=== PATIENT | female | born 1935 | race American Indian/Alaskan Native ===

== ENCOUNTER 2017-03-12 13:23 | Emergency (ER) | payer MEDICARE, MEDICAID ==
[2017-03-12] MEDS ORDERED: ATIVAN ONE (13:24)
[2017-03-12] MEDS ORDERED: ATIVAN IV ONE (13:30)
[2017-03-12] MEDS ORDERED: KEPPRA 1,000 MG/NS 0.75% 100ML 1,000 MG/100 ML BAG IV ONE ×2 (13:47→13:59)
[2017-03-12 13:50] LABS: Mean Corpuscular HGB Conc 30 % (30-34); Mean Corpuscular Hemoglobin 29 pg (28-32); Mean Corpuscular Volume 96 fl (79-97); Platelet Count 280 K/mm3 (140-440); Red Blood Count 4.26 M/mm3 (3.65-5.03); Red Cell Distribution Width 13.4 % (13.2-15.2); White Blood Count 13.5 K/mm3 (4.5-11.0)
[2017-03-12 13:55] LABS: Hematocrit 41.1 % (30.3-42.9); Hemoglobin 12.3 gm/dl (10.1-14.3)
[2017-03-12 13:58] LABS: Eosinophils % (Auto) 1.3 % (0.0-4.3)
--- NOTE | 2017-03-12 13:59 | Cat Scan Report ---
CT HEAD WITHOUT CONTRAST INDICATION: Seizure. COMPARISON: 04/04/2016 MRI. FINDINGS: Noncontrast head CT demonstrates age-appropriate, mildly enlarged ventricles and sulci. Moderate periventricular and few white matter hypodensities. Small bilateral basal ganglia lacunar infarcts measuring up to 3 mm on the left, axial image 19, series 2. No definite acute infarct, hemorrhage, mass effect or midline shift. No abnormal extra axial fluid collections. Normal posterior fossa with preserved basilar cisterns. Bilateral cataract surgery. Slight rightward nasal septal deviation. Aplastic/hypoplastic bilateral frontal sinuses. Clear remainder aerated paranasal sinuses and mastoid air cells. Slight bilateral external auditory canal debris may be directly visualized. Extensive atherosclerotic internal carotid and mild bilateral vertebral artery calcifications. Intact calvarium. Normal scalp. Edentulous jaw. Extensive posterior cervical fusion hardware noted. CONCLUSION: No acute intracranial CT abnormality with age-appropriate atrophy and few other incidental findings, as above. Thank you for the opportunity to participate in this patient's care.
[2017-03-12 14:06] LABS: Albumin 4.3 g/dL (3.9-5); Albumin/Globulin Ratio 1.2 %; BUN/Creatinine Ratio 17.5; Bilirubin,Total 0.3 mg/dL (0.1-1.2); Calcium 9.5 mg/dL (8.4-10.2); Chloride 101.7 mmol/L (98-107); Total Protein 7.9 g/dL (6.3-8.2)
[2017-03-12 14:53] LABS: Basophils % (Manual) 0 % (0.0-1.8); Blastocytes % (Manual) 0 %; Eosinophils % (Manual) 0 % (0.0-4.3)
[2017-03-12 14:54] LABS: Anisocytosis Few
[2017-03-12 14:55] LABS: Diff Status Complete
[2017-03-12 15:07] LABS: Bacteria,Urine 4+ /HPF (Negative); Bilirubin,Urine NEG (Negative); Blood,Urine MOD (Negative); Granular Casts,Urine 5 /LPF; Ketones,Urine NEG (Negative); Leukocyte Esterase,Urine TR (Negative); Mucus,Urine 1+ /HPF; Nitrite,Urine NEG (Negative); Urobilinogen,Urine < 2.0 mg/dL (<2.0)
--- NOTE | 2017-03-12 15:12 | Emergency Department Report ---
ED Seizure HPI - General Chief Complaint: Seizure Stated Complaint: SIEZURE Time Seen by Provider: 03/12/17 13:30 Source: family, EMS Mode of arrival: Stretcher Limitations: Physical Limitation - History of Present Illness Initial Comments: 81-year-old female presents to the emergency department via EMS from a local fdc for evaluation of seizure. EMS reports that the patient had 3 seizures prior to them being called. Reportedly, the patient was continuing to seize en route to the emergency department. 2 mg of intramuscular Ativan were administered. Patient was continuing to have some seizure activity upon arrival in the emergency department. Further history is unable to be obtained from the patient due to her clinical condition. Complaint: seizure -: Gradual, This afternoon Description of Episode: tonic-clonic movement Witnessed:: Yes Trauma: No Seizure History: other (reported history by family) Place: other (fdc) Possible Precipitating Event: none Treatments Prior to Arrival: benzodiazepines - Related Data Previous Rx's Medication Instructions Recorded Last Taken Type Nitrofurantoin [place]/M-Cryst 100 mg PO Q12HR #14 capsule 03/12/17 Unknown Rx [Macrobid CAP] levETIRAcetam [Keppra TAB] 500 mg PO BID #60 tablet 03/12/17 Unknown Rx Allergies Allergy/AdvReac Type Severity Reaction Status Date / Time seafood Allergy Anaphylaxis Uncoded 03/12/17 14:09 ED Review of Systems ROS: Stated complaint: SIEZURE Other details as noted in HPI Comment: Unobtainable due to pts medical conditions ED Past Medical Hx - Past Medical History Previous Medical History?: Yes Hx Hypertension: Yes Hx Congestive Heart Failure: Yes Hx Diabetes: Yes Additional medical history: DVTs; emphysema - Surgical History Past Surgical History?: No - Family History Family history: no significant - Social History Smoking Status: Unknown if ever smoked Substance Use Type: None - Medications Home Medications: Home Medications Medication Instructions Recorded Confirmed Last Taken Type Nitrofurantoin [place]/M-Cryst 100 mg PO Q12HR #14 capsule 03/12/17 Unknown Rx [Macrobid CAP] levETIRAcetam [Keppra TAB] 500 mg PO BID #60 tablet 03/12/17 Unknown Rx ED Physical Exam - General Limitations: Physical Limitation General appearance: postictal - Head Head exam: Present: atraumatic, normocephalic - Eye Eye exam: Present: normal appearance, PERRL (3 mm), EOMI - ENT ENT exam: Present: normal exam, normal orophraynx, mucous membranes moist - Neck Neck exam: Present: normal inspection, full ROM. Absent: tenderness - Respiratory Respiratory exam: Present: normal lung sounds bilaterally. Absent: respiratory distress - Cardiovascular Cardiovascular Exam: Present: normal rhythm, tachycardia, normal heart sounds - GI/Abdominal GI/Abdominal exam: Present: soft, normal bowel sounds. Absent: distended, tenderness - Extremities Exam Extremities exam: Present: normal inspection, full ROM. Absent: tenderness - Back Exam Back exam: Present: normal inspection, full ROM. Absent: tenderness - Neurological Exam Neurological exam: Present: other (patient post-ictal on exam). Absent: motor sensory deficit - Skin Skin exam: Present: warm, dry, intact ED Course Vital Signs 03/12/17 03/12/17 03/12/17 13:29 13:47 14:37 Temperature 98.5 F 99.1 F Pulse Rate 107 H 97 H Respiratory 6 L 18 18 Rate Blood Pressure 201/98 Blood Pressure 103/64 [Left] O2 Sat by Pulse 100 100 100 Oximetry ED Medical Decision Making - Lab Data Result diagrams: 03/12/17 13:34 03/12/17 13:34 - EKG Data -: EKG Interpreted by Pa EKG shows normal: sinus rhythm, axis, intervals, QRS complexes Rate: normal - EKG Data When compared to previous EKG there are: previous EKG unavailable Interpretation: nonspecific ST-T wave ozzie - Radiology Data Radiology results: report reviewed, image reviewed Head CT shows chronic white matter changes and old lacunar infarcts. There is no acute intracranial abnormality. - Medical Decision Making On arrival to the emergency department, the patient continued to have seizure activity. She was administered an additional 2 mg of IV Ativan. Following this , her seizure activity ceased. Obtaining labs and head CT. Will reassess. 1525--lab results reviewed and discussed with the family at bedside. Patient's vital signs have returned to normal. No further seizure activity has been observed in the emergency department. Patient has received 1 g of IV Keppra. She will be placed on oral anti-biotics and oral Keppra. Patient will be discharged back to the fdc at this time. - Differential Diagnosis seizure, ICH, infection Critical care attestation.: If time is entered above; I have spent that time in minutes in the direct care of this critically ill patient, excluding procedure time. ED Disposition Clinical Impression: Seizure UTI (urinary tract infection) Qualifiers: Urinary tract infection type: acute cystitis Hematuria presence: without hematuria Qualified Code(s): N30.00 - Acute cystitis without hematuria Disposition: DC/TX ANOTHER TYPE HEALTHCARE Is pt being admited?: No Condition: Stable Instructions: Recurrent Seizures Adult (ED), Urinary Tract Infection in Women ( ED) Prescriptions: levETIRAcetam [Keppra TAB] 500 mg PO BID #60 tablet Nitrofurantoin [place]/M-Cryst [Macrobid CAP] 100 mg PO Q12HR #14 capsule Referrals: PRIMARY CARE, [Primary Care Provider] - 3-5 Days Time of Disposition: 15:29
[2017-03-12 16:15] VITALS: BP 137/80
== END 2017-03-12 17:12 | disposition other institution (70) ==
LOC: ED 13:23
DX: R56.9 Unspecified convulsions (principal); N30.00 Acute cystitis without hematuria; I10 Essential (primary) hypertension; I50.9 Heart failure, unspecified; E11.9 Type 2 diabetes mellitus without complications
CPT/HCPCS: 36415; 70450; 80053; 81001; 85007; 85025; 93005; 93010; 96374; 96375; 99285; J1953; J2060

== ENCOUNTER 2022-06-30 09:03 | Inpatient (IN) | payer MEDICARE ==
[2022-06-30] MEDS ORDERED: ROCURONIUM 50 MG/5 ML INJ IV ONE ×2 (09:33→09:59)
[2022-06-30] MEDS ORDERED: ETOMIDATE 20 MG/10 ML INJ IV ONE ×2 (09:33→09:46)
--- NOTE | 2022-06-30 09:37 | Emergency Department Report ---
ED Altered Mental Status HPI - General Stated Complaint: AMS Time Seen by Provider: 06/30/22 09:15 Source: EMS Mode of arrival: Stretcher Limitations: Altered Mental Status - History of Present Illness Initial Comments: 87-year-old -[place] with multiple medical problems sent from custodial because she was altered. By EMS her baseline she is usually communicative and making sense this a.m. approximately 70 o'clock, she became altered. MD Complaint: altered mental status, decreased responsiveness -: Sudden Severity: severe Consistency of Symptoms: constant Associated Symptoms: denies other symptoms - Related Data Home Medications Medication Instructions Recorded Confirmed Last Taken Acetaminophen [Acetaminophen TAB] 650 mg PO Q6HR PRN 05/04/17 05/04/17 Unknown Acetaminophen [Tylenol Arthritis] 650 mg PO Q12H PRN 05/04/17 05/04/17 Unknown Benazepril HCl 25 mg PO BID 05/04/17 05/04/17 Unknown Docusate Sodium [Colace CAP] 100 mg PO BID 05/04/17 05/04/17 Unknown Ferrous Sulfate [Feosol 325 MG tab] 325 mg PO QDAY 05/04/17 05/04/17 Unknown Mag Hydrox/Aluminum Hyd/Simeth 30 ml PO Q6H PRN 05/04/17 05/04/17 Unknown [Maalox Advanced Suspension] Mirtazapine [Remeron 15mg TAB] 15 mg PO QHS 05/04/17 05/04/17 Unknown Montelukast [Singulair] 10 mg PO QPM 05/04/17 05/04/17 Unknown Sennosides Tab [Senokot] 2 tab PO QDAY 05/04/17 05/04/17 Unknown glucagon HCL [Glucagon HCl] 1 mg IM Q15MIN PRN 05/04/17 05/04/17 Unknown Previous Rx's Medication Instructions Recorded Last Taken Type levETIRAcetam [Keppra TAB] 500 mg PO BID #60 tablet 03/12/17 Unknown Rx amLODIPine 10 mg PO QDAY #30 tablet 05/07/17 Unknown Rx Allergies Allergy/AdvReac Type Severity Reaction Status Date / Time seafood Allergy Anaphylaxis Uncoded 06/30/22 10:05 ED Review of Systems ROS: Stated complaint: AMS Other details as noted in HPI Constitutional: see HPI, malaise Eyes: as per HPI ENT: as per HPI Respiratory: no symptoms reported Cardiovascular: as per HPI Endocrine: no symptoms reported, intolerance to heat Musculoskeletal: back pain Skin: as per HPI Neurological: weakness, confusion ED Past Medical Hx - Past Medical History Hx Hypertension: Yes Hx CVA: Yes Hx Congestive Heart Failure: Yes Hx Diabetes: Yes Hx Seizures: Yes Hx Dementia: Yes Additional medical history: DVTs; emphysema. dementia - Surgical History Additional Surgical History: torn esophagus - Social History Smoking Status: Never Smoker - Medications Home Medications: Home Medications Medication Instructions Recorded Confirmed Last Taken Type levETIRAcetam [Keppra TAB] 500 mg PO BID #60 tablet 03/12/17 05/04/17 Unknown Rx Acetaminophen [Acetaminophen TAB] 650 mg PO Q6HR PRN 05/04/17 05/04/17 Unknown History Acetaminophen [Tylenol Arthritis] 650 mg PO Q12H PRN 05/04/17 05/04/17 Unknown History Benazepril HCl 25 mg PO BID 05/04/17 05/04/17 Unknown History Docusate Sodium [Colace CAP] 100 mg PO BID 05/04/17 05/04/17 Unknown History Ferrous Sulfate [Feosol 325 MG tab] 325 mg PO QDAY 05/04/17 05/04/17 Unknown History Mag Hydrox/Aluminum Hyd/Simeth 30 ml PO Q6H PRN 05/04/17 05/04/17 Unknown History [Maalox Advanced Suspension] Mirtazapine [Remeron 15mg TAB] 15 mg PO QHS 05/04/17 05/04/17 Unknown History Montelukast [Singulair] 10 mg PO QPM 05/04/17 05/04/17 Unknown History Sennosides Tab [Senokot] 2 tab PO QDAY 05/04/17 05/04/17 Unknown History glucagon HCL [Glucagon HCl] 1 mg IM Q15MIN PRN 05/04/17 05/04/17 Unknown History amLODIPine 10 mg PO QDAY #30 tablet 05/07/17 Unknown Rx ED Physical Exam - General Limitations: Altered Mental Status, Physical Limitation General appearance: lethargic, in distress - Head Head exam: Present: atraumatic, normocephalic - Eye Eye exam: Present: normal appearance, PERRL - ENT ENT exam: Present: normal exam, normal orophraynx - Neck Neck exam: Present: normal inspection - Respiratory Respiratory exam: Present: respiratory distress, accessory muscle use - Cardiovascular Cardiovascular Exam: Present: regular rate, normal rhythm, normal heart sounds - Extremities Exam Extremities exam: Present: normal inspection - Back Exam Back exam: Present: normal inspection - Neurological Exam Neurological exam: Present: alert - Expanded Neurological Exam Expanded Neurological exam: Present: total aphasia. Absent: protecting the airway Patient oriented to: Absent: person, place, time Cranial nerves: EOM's Intact: Normal, Gag Reflex: Abnormal Right, Abnormal Left, Facial Palsy with Forehead Movement: Abnormal Right, Abnormal Left Upper motor neuron: [place] Neglect: Abnormal Right, Abnormal Left Best Eye Response ([place]): (2) open to pain Best Motor Response ([place]): (5) localizes to pain Best Verbal Response ([place]): (2) incomprehsible sounds [place] Total: 9 - Skin Skin exam: Present: warm ED Course Vital Signs 06/30/22 06/30/22 06/30/22 09:03 09:33 09:43 Temperature 98.0 F Pulse Rate 144 H 143 H Respiratory 22 Rate Blood Pressure 203/103 Blood Pressure 160/120 [Left] O2 Sat by Pulse 92 71 L 100 Oximetry 06/30/22 06/30/22 06/30/22 09:46 10:00 10:16 Temperature Pulse Rate 126 H 123 H 142 H Respiratory 36 H 38 H 25 H Rate Blood Pressure 169/93 Blood Pressure [Left] O2 Sat by Pulse 90 95 Oximetry 06/30/22 06/30/22 06/30/22 10:30 10:46 11:00 Temperature Pulse Rate 149 H 131 H 132 H Respiratory 22 24 22 Rate Blood Pressure 163/71 117/70 118/62 Blood Pressure [Left] O2 Sat by Pulse 94 83 L 96 Oximetry 06/30/22 06/30/22 06/30/22 11:16 11:30 11:46 Temperature Pulse Rate 117 H 115 H 115 H Respiratory 21 21 21 Rate Blood Pressure 115/68 113/60 102/52 Blood Pressure [Left] O2 Sat by Pulse 94 96 96 Oximetry 06/30/22 06/30/22 06/30/22 12:00 12:16 12:30 Temperature Pulse Rate 105 H 100 H 101 H Respiratory 22 19 23 Rate Blood Pressure 99/57 99/60 91/52 Blood Pressure [Left] O2 Sat by Pulse 96 98 98 Oximetry 06/30/22 06/30/22 06/30/22 12:46 13:00 13:30 Temperature Pulse Rate 107 H 105 H 108 H Respiratory 13 15 20 Rate Blood Pressure 96/55 92/68 92/68 Blood Pressure [Left] O2 Sat by Pulse 98 96 96 Oximetry - Lab Data Result diagrams: 06/30/22 10:01 06/30/22 10:01 Lab Results 06/30/22 06/30/22 06/30/22 Range/Units 10:01 10:01 10:55 WBC 17.9 H (4.5-11.0) K/mm3 RBC 4.22 (3.65-5.03) M/mm3 Hgb 12.1 (10.1-14.3) gm/dl Hct 38.3 (30.3-42.9) % MCV 91 (79-97) fl MCH 29 (28-32) pg MCHC 32 (30-34) % RDW 13.1 L (13.2-15.2) % Plt Count 344 (140-440) K/mm3 Lymph % (Auto) 6.5 L (13.4-35.0) % [place] % (Auto) 4.8 (0.0-7.3) % Eos % (Auto) 0.0 (0.0-4.3) % Baso % (Auto) 0.2 (0.0-1.8) % Lymph # (Auto) 1.2 (1.2-5.4) K/mm3 [place] # (Auto) 0.9 H (0.0-0.8) K/mm3 Eos # (Auto) 0.0 (0.0-0.4) K/mm3 Baso # (Auto) 0.0 (0.0-0.1) K/mm3 Seg Neutrophils % 88.5 H (40.0-70.0) % Seg Neutrophils # 15.8 H (1.8-7.7) K/mm3 ABG pH 7.282 L (7.350-7.450) pH Units ABG pCO2 30.1 mm Hg ABG pO2 230.5 H (80.0-90.0) mm Hg ABG HCO3 13.9 L (20.0-26.0) mmol/L ABG O2 Saturation 99.3 H (95.0-99.0) % ABG O2 Content 18.3 (0.0-44) ABG Base Excess -11.5 L (-2.0-3.0) mmol/L ABG Hemoglobin 12.9 (12.0-16.0) gm/dl ABG Carboxyhemoglobin 1.0 (0.0-5.0) % ABG Methemoglobin 0.5 (0.0-1.5) % Oxyhemoglobin 97.8 (95.0-99.0) % FiO2 100 % Sodium 135 L (137-145) mmol/L Potassium 3.8 (3.6-5.0) mmol/L Chloride 91.5 L (98-107) mmol/L Carbon Dioxide 12 L (22-30) mmol/L Anion Gap 35 mmol/L BUN 27 H (7-17) mg/dL Creatinine 1.2 (0.6-1.2) mg/dL Estimated GFR 52 ml/min BUN/Creatinine Ratio 23 % Glucose 196 H (65-100) mg/dL Calcium 10.0 (8.4-10.2) mg/dL Total Bilirubin 0.40 (0.1-1.2) mg/dL AST 25 (5-40) units/L ALT 11 (7-56) units/L Alkaline Phosphatase 85 (35-129) units/L Troponin T < 0.010 (0.00-0.029) ng/mL Total Protein 7.0 (6.3-8.2) g/dL Albumin 4.2 (3.9-5) g/dL Albumin/Globulin Ratio 1.5 % Critical care attestation.: If time is entered above; I have spent that time in minutes in the direct care of this critically ill patient, excluding procedure time. ED Disposition Clinical Impression: Respiratory failure, Altered mental status Disposition: 09 ADMITTED INPATIENT Is pt being admited?: No Does the pt Need Aspirin: No Condition: Critical
[2022-06-30 10:12] LABS: Basophils % (Auto) 0.2 % (0.0-1.8); Hematocrit 38.3 % (30.3-42.9); Hemoglobin 12.1 gm/dl (10.1-14.3); Lymphocytes # (Auto) 1.2 K/mm3 (1.2-5.4); Lymphocytes % (Auto) 6.5 % (13.4-35.0); Mean Corpuscular HGB Conc 32 % (30-34); Mean Corpuscular Volume 91 fl (79-97); Monocytes # (Auto) 0.9 K/mm3 (0.0-0.8); Monocytes % (Auto) 4.8 % (0.0-7.3); Platelet Count 344 K/mm3 (140-440); Red Blood Count 4.22 M/mm3 (3.65-5.03); Red Cell Distribution Width 13.1 % (13.2-15.2)
--- NOTE | 2022-06-30 10:16 | XRay Report ---
CHEST 1 VIEW 06/30/2022 9:45 AM INDICATION / CLINICAL INFORMATION: ET TUBE PLACEMENT. COMPARISON: None available. FINDINGS: SUPPORT DEVICES: The endotracheal tube terminates 1.2 cm superior to the [place]. Consider retraction by 2 to 3 cm. HEART / MEDIASTINUM: No significant abnormality. LUNGS / PLEURA: The left hemidiaphragm is mildly elevated or eventrated. The lungs are clear otherwis e with no evidence for pneumonia, pleural effusion or pneumothorax. There is a 1 cm rounded opacity o verlying the right lung base which probably represents a nipple shadow. ADDITIONAL FINDINGS: No significant additional findings. IMPRESSION: 1. Endotracheal tube as described. 2. No acute cardiopulmonary process is appreciated. Signer Name: Carlo Brasher Jr, MD Signed: 06/30/2022 10:12 AM Workstation Name: [id number]
--- NOTE | 2022-06-30 10:17 | Consultation ---
History of Present Illness History of present illness: [facility] Consult Note # Demographics Consult Type: Acute Stroke Level 1 (0-4.5 hrs) Patient Location: Emergency Room First Name: Liliana Last Name: Preston Date of : 1935 Age: 87 Gender: Female Facility: [facility] Time of Initial Page (): 06/30/2022, 09:05 Time of Return Call (): 06/30/2022, 09:05 # HPI Chief Complaint: altered mental state History: 87F with dementia, seizures presents from group home with unresponsiveness. LKWT reportedly 0700 this morning. Then became minimally responsive with left-sided weakness. On arrival to ED, GCS 4. # Scores Time of exam and NIHSS (): 06/30/2022, 09:06 Level of Consciousness 1a: [3] = Responds only with reflex motor or unresponsive LOC Questions 1b: [2] = Answers neither correctly LOC Commands 1c: [2] = Performs neither correctly Best Gaze 2: [1] = Partial gaze palsy Visual 3: [0] = No visual loss Facial Palsy 4: [0] = Normal symmetrical movements Motor Arm Left 5a: [4] = No movement Motor Arm Right 5b: [4] = No movement Motor Leg Left 6a: [4] = No movement Motor Leg Right 6b: [4] = No movement Sensory 8: [2] = Severe to total sensory loss Best Language 9: [3] = Mute Dysarthria 10: [2] = Severe dysarthria Extinction and Inattention 11: [0] = No abnormality NIHSS Total: 31 # Data Time Head CT personally read by me (): 06/30/2022, 09:[address]: no bleed preliminarily reviewed by me, please refer to radiology read for official reading CTA Head: no large vessel occlusion preliminarily reviewed by me, please refer to radiology read for official reading CTA Neck: patent vessels preliminarily reviewed by me, please refer to radiology read for official reading # Assessment Impression: Coma without LVO; likely seizure vs metabolic encephalopathy vs amyloid spell # Plan Thrombolytic/Intervention: NOT IV Thrombolysis or IA Intervention candidate Thrombolytic/Intraarterial Exclusion: IV thrombolytic and IA intervention considered but not recommended as this patient's symptoms are not clinically consistent with an assumed diagnosis of stroke Medication: Continue home levetiracetam Other: If patient has any neurological deterioration please call me back immediately I have discussed my recommendations with the referring provider Additional Recommendations: Intubate for airway protection If not waking, should be placed on EEG to evaluate for sizures Disposition: admit # Logistics Telemedicine: Interactive 2 way audio and visual telecommunication technology was utilized during this visit Electronically signed at 06/30/2022 10:17 (Eastern Time) by Mike Giang MD Medications and Allergies Allergies Allergy/AdvReac Type Severity Reaction Status Date / Time seafood Allergy Anaphylaxis Uncoded 06/30/22 10:05 Home Medications Medication Instructions Recorded Confirmed Last Taken Type levETIRAcetam [Keppra TAB] 500 mg PO BID #60 tablet 03/12/17 05/04/17 Unknown Rx Acetaminophen [Acetaminophen TAB] 650 mg PO Q6HR PRN 05/04/17 05/04/17 Unknown History Acetaminophen [Tylenol Arthritis] 650 mg PO Q12H PRN 05/04/17 05/04/17 Unknown History Benazepril HCl 25 mg PO BID 05/04/17 05/04/17 Unknown History Docusate Sodium [Colace CAP] 100 mg PO BID 05/04/17 05/04/17 Unknown History Ferrous Sulfate [Feosol 325 MG tab] 325 mg PO QDAY 05/04/17 05/04/17 Unknown History Mag Hydrox/Aluminum Hyd/Simeth 30 ml PO Q6H PRN 05/04/17 05/04/17 Unknown History [Maalox Advanced Suspension] Mirtazapine [Remeron 15mg TAB] 15 mg PO QHS 05/04/17 05/04/17 Unknown History Montelukast [Singulair] 10 mg PO QPM 05/04/17 05/04/17 Unknown History Sennosides Tab [Senokot] 2 tab PO QDAY 05/04/17 05/04/17 Unknown History glucagon HCL [Glucagon HCl] 1 mg IM Q15MIN PRN 05/04/17 05/04/17 Unknown History amLODIPine 10 mg PO QDAY #30 tablet 05/07/17 Unknown Rx Physical Examination - Vital Signs Vital Signs: Vital Signs Temp Pulse Resp BP Pulse Ox 98.0 F 144 H 22 160/120 92 06/30/22 09:03 06/30/22 09:03 06/30/22 09:03 06/30/22 09:03 06/30/22 09:03 Results - Laboratory Findings CBC and BMP: 06/30/22 10:01 Abnormal Lab Findings: Abnormal Labs 06/30/22 10:01 WBC 17.9 H RDW 13.1 L Lymph % (Auto) 6.5 L [place] # (Auto) 0.9 H Seg Neutrophils % 88.5 H Seg Neutrophils # 15.8 H
--- NOTE | 2022-06-30 10:22 | Cat Scan Report ---
CT head/brain wo con INDICATION / CLINICAL INFORMATION: 87 years Female; pro. TECHNIQUE: Routine CT head without contrast. All CT scans at this location are performed using CT dos e reduction for ALARA by means of automated exposure control. COMPARISON: 03/12/2017-only a portion of the exam is available for comparison. Study from 05/05/2017 is not currentl y available. FINDINGS: BRAIN / INTRACRANIAL CONTENTS: No acute hemorrhage, mass effect, midline shift, hydrocephalus, or acu te, large territorial infarct. Mild to moderate, diffuse cerebral and cerebellar atrophy. Moderate degree of hippocampal atrophy sug gested bilaterally. There are moderate to marked areas of decreased attenuation in the white matter of the cerebral hemis pheres, as well as the gangliocapsular regions. These are nonspecific findings and may be related to microangiopathy (hypertension, diabetes, atherosclerosis), given the patient's age. It might be diffi cult to evaluate for small areas of ischemia without diffusion imaging by MRI. Pontine disease suspec alverto, particularly leftward of midline, which is not appreciated on prior. CRANIOCERVICAL JUNCTION: No significant abnormality. ORBITS: No significant abnormality of visualized orbits. SINUSES / MASTOIDS: Visualized paranasal sinuses and mastoid air cells are essentially clear. ADDITIONAL FINDINGS: Atherosclerotic disease is seen in the anterior and posterior circulation. IMPRESSION: 1. No focal mass, hemorrhage, hydrocephalus, or acute, large territorial infarct. Follow-up with diff usion imaging by MRI, as clinically warranted. Signer Name: Steve Mejia MD, III Signed: 06/30/2022 10:17 AM Workstation Name: [id number]
[2022-06-30 10:28] LABS: Alanine Aminotransferase 11 units/L (7-56); Albumin 4.2 g/dL (3.9-5); BUN/Creatinine Ratio 23; Blood Urea Nitrogen 27 mg/dL (7-17); Hemolysis Index 6
--- NOTE | 2022-06-30 10:33 | Cat Scan Report ---
CT angio head INDICATION / CLINICAL INFORMATION: 87 years Female; cva. TECHNIQUE: Thin cut axial images obtained through the head during IV bolus contrast administration. S agittal, coronal, and 3 plane MIP reconstructions performed by the technologist. NASCET type criteria used evaluate stenoses. Automated exposure control utilized for radiation reduction purposes. . COMPARISON: None available. FINDINGS: INTERNAL CAROTID ARTERIES: Minimal to mild narrowing seen in the communicating portions of both inter nal carotid arteries, related atherosclerotic disease. Otherwise, no significant narrowing appreciate d. VERTEBROBASILAR SYSTEM: Focal areas of [id number] , bandlike narrowing are seen in both vertebr al arteries, which might be hemodynamically significant. Similar findings seen distally in the basila r artery. DISTAL BRANCHES: Distal branches of the anterior, middle, and posterior cerebral arteries are fairly symmetric in appearance and number. Focal area of moderate to high-grade narrowing seen in the A2 region of the right ROBERT, near the corpu s callosum. Focal areas of mdrq-yi-lxalgbru narrowing are seen more distally in the pericallosal bran ches, as well. A few scattered areas of mild narrowing are seen in the MCA territory branches. Focal areas of moderate narrowing are seen in the P1-2 region and mid to distal P2 region of the righ t CARE ANALYST. Areas of mild narrowing are seen in the left CARE ANALYST. Focal areas of nkhz-ja-xqxlwbue narrowing are seen in the proximal PICAs. 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 There is a bran ch MCA vessel emanating from the neck of this area of dilatation, which extends towards the some cent ral gyral region. ADDITIONAL FINDINGS: Remainder of the surrounding soft tissues are grossly normal. IMPRESSION: 1. Areas of narrowing as described above. No definitive signs of large vessel occlusion appreciated. 2. 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 Signer Name: Steve Mejia MD, III Signed: 06/30/2022 10:29 AM Workstation Name: [id number]
--- NOTE | 2022-06-30 10:42 | Cat Scan Report ---
CT angio neck INDICATION / CLINICAL INFORMATION: 87 years Female; cva. TECHNIQUE: Thin cut axial images obtained through the head during IV bolus contrast administration. S agittal, coronal, and 3 plane MIP reconstructions performed by the technologist. NASCET type criteria used evaluate stenoses. All CT scans at this location are performed using CT dose reduction for ALAR A by means of automated exposure control. . COMPARISON: None available. FINDINGS: Tortuous vessels seen-chronic hypertension suspected. ARCH: Bovine arch configuration noted. CAROTID ARTERIES: The visualized common and internal carotid arteries are widely patent. Scattered ar eas of mild to moderate atherosclerotic disease seen without significant stenosis appreciated. VERTEBRAL ARTERIES: Codominant vertebral system seen. No significant stenosis appreciated. ADDITIONAL FINDINGS: Significant, multilevel disc space narrowing seen in the cervical spine. Partial , bilateral hemilaminectomies seen from C3 through the C6-7 region. Posterior fusion hardware seen at the same levels. Scarring type changes and pleural thickening seen in the lung apices, bilaterally. Please clinically correlate. There is suggestion of a small nodule in the right upper lobe-3-[address] the chest might be helpful for further evaluation. Peripheral, pleural-based nodule is seen along the left upper lobe, [id number] mm. IMPRESSION: 1. No hemodynamically significant stenosis appreciated on this CTA of the neck. 2. Small pulmonary nodules and pleural thickening identified. Follow-up with CT of the chest, as clin ically warranted. Signer Name: Steve Mejia MD, III Signed: 06/30/2022 10:38 AM Workstation Name: [id number]
--- NOTE | 2022-06-30 11:10 | XRay Report ---
ABDOMEN 1 VIEW(S) INDICATION / CLINICAL INFORMATION: NG PLACEMENT. COMPARISON: None available. FINDINGS: TUBES / LINES: No nasogastric tube is seen. BOWEL GAS PATTERN: No significant abnormality. FREE AIR / EXTRALUMINAL GAS: None seen. ADDITIONAL FINDINGS: No significant additional findings. IMPRESSION: No acute process is appreciated in the abdomen. The nasogastric tube is not seen in the lower chest or abdomen. It may be coiled in the upper esophag us. Please correlate with the patient and consider replacement. Signer Name: Carlo Brasher Jr, MD Signed: 06/30/2022 11:06 AM Workstation Name: [id number]
[2022-06-30 11:21] LABS: ABG Base Excess -11.5 mmol/L (-2.0-3.0); ABG HCO3 13.9 mmol/L (20.0-26.0); ABG Methemoglobin 0.5 % (0.0-1.5); ABG Oxygen Saturation 99.3 % (95.0-99.0); ABG PCO2 30.1 mm Hg; ABG PH 7.282 pH Units (7.350-7.450); ABG PO2 230.5 mm Hg (80.0-90.0)
[2022-06-30] MEDS ORDERED: MIDAZOLAM 5 MG/5 ML INJ MDV IV ONE (12:38)
--- NOTE | 2022-06-30 12:52 | History and Physical Report ---
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 Patient is confused with diminished cognition, evaluation is unable to provide history. Patient resting from EMS staff, ED staff, as well as intermediate facility staff. As per staff the patient was found to have increased confusion and weakness today. EMS was notified and upon arrival the patient was found to be in distress and subsequently transported to [facility] for further care and evaluation of the aforementioned symptoms. The patient was seen and evaluated in the emergency department. All lab and imaging studies reviewed. Patient found to have a pulse oximetry of 86% on room air which is consistent with his acute hypoxemic respiratory failure. Patient also found to have sepsis suspected secondary to urinary tract infection, toxic metabolic encephalopathy, metabolic acidosis, hyponatremia, as well as accelerated hypertension. Patient intubated and placed on ventilatory support in the emergency department. Patient admitted to ICU due to increased risk of worsening symptoms and for medical stabilization. Patient initiated on sepsis protocol and treated with IV antibiotic therapy in the emergency department. No reports of fever, chills, chest pain, palpitation, productive cough, skin rash, recent contact, known exposure to COVID-19. Prior admission on 05/04/2017 reviewed. All medication listed at time of admission has been reconciled. Advanced care planning conducted in ED. Patient care team consulted in ED. Past History Past Medical History: diabetes, DVT, heart failure, hypertension, seizures, stroke, other (See HPI) Past Surgical History: Other (Esophageal surgery) Social history: . denies: smoking, alcohol abuse Family history: diabetes, hypertension Medications and Allergies Allergies Allergy/AdvReac Type Severity Reaction Status Date / Time seafood Allergy Anaphylaxis Uncoded 06/30/22 10:05 Home Medications Medication Instructions Recorded Confirmed Last Taken Type levETIRAcetam [Keppra TAB] 500 mg PO BID #60 tablet 03/12/17 05/04/17 Unknown Rx Acetaminophen [Acetaminophen TAB] 650 mg PO Q6HR PRN 05/04/17 05/04/17 Unknown History Acetaminophen [Tylenol Arthritis] 650 mg PO Q12H PRN 05/04/17 05/04/17 Unknown History Benazepril HCl 25 mg PO BID 05/04/17 05/04/17 Unknown History Docusate Sodium [Colace CAP] 100 mg PO BID 05/04/17 05/04/17 Unknown History Ferrous Sulfate [Feosol 325 MG tab] 325 mg PO QDAY 05/04/17 05/04/17 Unknown History Mag Hydrox/Aluminum Hyd/Simeth 30 ml PO Q6H PRN 05/04/17 05/04/17 Unknown History [Maalox Advanced Suspension] Mirtazapine [Remeron 15mg TAB] 15 mg PO QHS 05/04/17 05/04/17 Unknown History Montelukast [Singulair] 10 mg PO QPM 05/04/17 05/04/17 Unknown History Sennosides Tab [Senokot] 2 tab PO QDAY 05/04/17 05/04/17 Unknown History glucagon HCL [Glucagon HCl] 1 mg IM Q15MIN PRN 05/04/17 05/04/17 Unknown History amLODIPine 10 mg PO QDAY #30 tablet 05/07/17 Unknown Rx Review of Systems ROS unobtainable: due to endotracheal tube, due to mental status Exam - Constitutional Vitals: Temp Pulse Resp BP Pulse Ox 98.0 F 143 H 22 203/103 100 06/30/22 09:03 06/30/22 09:43 06/30/22 09:03 06/30/22 09:43 06/30/22 09:43 General appearance: Present: severe distress - EENT Eyes: Present: miosis ENT: hearing decreased - Neck Neck: Present: supple, normal ROM - Respiratory Respiratory effort: labored Respiratory: bilateral: diminished - Cardiovascular Heart Sounds: Present: S1 & S2. Absent: rub, click - Extremities Extremities: pulses symmetrical, No edema Peripheral Pulses: within normal limits - Abdominal General gastrointestinal: Present: soft, non-tender, non-distended, normal bowel sounds Female genitourinary: Present: normal - Integumentary Integumentary: Present: clear, dry, clammy, decreased turgor - Musculoskeletal Musculoskeletal: generalized weakness - Psychiatric Psychiatric: no appropriate mood/affect, no intact judgment & insight, no memory intact - Neurologic Neurologic: CNII-XII intact, no focal deficits, moves all extremities, no gait normal HEART Score - HEART Score Troponin: Troponin T < 0.010 ng/mL (0.00-0.029) 06/30/22 10:01 Results - Labs CBC & Chem 7: 06/30/22 10:01 06/30/22 10:01 Labs: Abnormal lab results 06/30/22 06/30/22 06/30/22 Range/Units 10:01 10:01 10:55 WBC 17.9 H (4.5-11.0) K/mm3 RDW 13.1 L (13.2-15.2) % Lymph % (Auto) 6.5 L (13.4-35.0) % [place] # (Auto) 0.9 H (0.0-0.8) K/mm3 Seg Neutrophils % 88.5 H (40.0-70.0) % Seg Neutrophils # 15.8 H (1.8-7.7) K/mm3 ABG pH 7.282 L (7.350-7.450) pH Units ABG pO2 230.5 H (80.0-90.0) mm Hg ABG HCO3 13.9 L (20.0-26.0) mmol/L ABG O2 Saturation 99.3 H (95.0-99.0) % ABG Base Excess -11.5 L (-2.0-3.0) mmol/L Sodium 135 L (137-145) mmol/L Chloride 91.5 L (98-107) mmol/L Carbon Dioxide 12 L (22-30) mmol/L BUN 27 H (7-17) mg/dL Glucose 196 H (65-100) mg/dL Assessment and Plan - Patient Problems (1) Sepsis Current Visit: Yes Status: Acute Qualifiers: Acute respiratory failure type: with hypoxia Plan to address problem: Sepsis protocol: Chest x-ray, CBC, urinalysis, IV fluid resuscitation therapy, IV antibiotic therapy, serial lactic acid level, maintain mean arterial pressure greater than equal to 65, monitor urine output every shift, monitor fluid balance, blood culture, The high probability of a clinically significant, sudden or life threatening deterioration of the [pulmonary, neuro, cardiac, renal, infectious disease] system(s) required my full and direct attention, intervention and personal management. The aggregate critical care time was [95] minutes. This time is in addition to time spent performing reported procedures but includes the following: [x] Data Review and interpretation [x] Patient assessment and monitoring of vital signs [x] Documentation [x] Medication orders and management (2) Acute hypoxemic respiratory failure Current Visit: Yes Status: Acute Plan to address problem: Chest x-ray, supplemental oxygen, pulse oximetry, nebulizer therapy, patient intubated and on ventilatory support. Wean vent as tolerated, daily sedation holiday, spontaneous breathing trial daily, daily arterial blood gas. (3) Toxic metabolic encephalopathy Current Visit: Yes Status: Acute Plan to address problem: CT scan head, neuro check, seizure precautions, aspiration precautions, supportive care, neuro check. (4) Metabolic acidosis Current Visit: Yes Status: Acute Plan to address problem: IV fluid resuscitation therapy, IV bicarbonate therapy, supportive care. Repeat BMP in a.m. (5) Urinary tract infection Current Visit: Yes Status: Acute Qualifiers: Encounter type: initial encounter Plan to address problem: Urinalysis, IV antibiotic therapy, IV fluid resuscitation therapy, supportive care. (6) Malnutrition Current Visit: Yes Status: Acute Qualifiers: Malnutrition type: protein-calorie malnutrition Protein-calorie malnutrition severity: severe Qualified Code(s): E43 - Unspecified severe protein-calorie malnutrition Plan to address problem: Dietary supplementation, increase protein intake when awake and alert only, supportive care. (7) Vascular dementia Current Visit: Yes Status: Acute Qualifiers: Dementia behavioral disturbance: without behavioral disturbance Qualified Code(s): F01.50 - Vascular dementia without behavioral disturbance Plan to address problem: Verbal prompting, verbal redirection, benzodiazepine therapy as clinically indicated. (8) Cerebral atherosclerosis Current Visit: Yes Status: Acute Plan to address problem: Risk factor reduction, antiplatelet therapy as clinically indicated. (9) Accelerated hypertension Current Visit: Yes Status: Acute Plan to address problem: Monitor blood pressure every shift, continue medical management. (10) CHF (congestive heart failure) Current Visit: Yes Status: Acute Qualifiers: Heart failure type: diastolic Heart failure chronicity: chronic Qualified Code(s): I50.32 - Chronic diastolic (congestive) heart failure Plan to address problem: Strict I's/O, monitor urine output every shift, daily weight, afterload reduction, blood pressure control, no acute exacerbation at this time, continue current therapy. (11) DVT prophylaxis Current Visit: Yes Status: Acute Plan to address problem: SCD to bilateral lower extremities while in bed, prophylactic anticoagulation. (12) Advance care planning Current Visit: Yes Status: Acute Plan to address problem: Disease education done, care plan discussed, diagnoses discussed, prognosis discussed, patient is full code, +30 minutes. (13) Preventative health care Current Visit: Yes Status: Acute Plan to address problem: Patient to follow-up with primary care physician for all age and risk factor appropriate screening test. +30 minutes.
[2022-06-30] MEDS ORDERED: ALBUTEROL 2.5 MG/3 ML NEBU IH PRN (12:58)
[2022-06-30] MEDS ORDERED: HYDROmorphone 0.5 MG/0.5 ML INJ IV PRN ×2 (12:58)
[2022-06-30] MEDS ORDERED: ACETAMINOPHEN 325 MG TAB PO PRN ×2 (12:58)
[2022-06-30] MEDS ORDERED: oxyCODONE /ACETAMINOPHEN 5-325MG TAB PO PRN (12:58)
[2022-06-30] MEDS ORDERED: CEFEPIME/NS 2 GM/100 ML 2 GM/100 ML BAG IV SCH (13:00)
--- NOTE | 2022-06-30 13:02 | Procedure Note ---
Date of procedure: 06/30/22 Pre-op diagnosis: Sepsis Post-op diagnosis: same Procedure: Right femoral vein triple-lumen catheter under ultrasound guidance After informed consent was obtained a timeout was taken with the patient's nurse at bedside to verify the correct patient, the correct procedure, and the correct operative site. Local anesthesia obtained with 1% lidocaine. Ultrasound was utilized to localize the right femoral vein without difficulty. The Seldinger technique was utilized under ultrasound guidance to insert a seeker needle into the right femoral vein under ultrasound guidance. A guidewire was then advanced via the seeker needle into the right femoral vein and the seeker needle subsequently removed. A scalpel was used to incise skin at the insertion site. A dilator was then passed over the guidewire into the right femoral vein and subsequently removed. A preflush triple-lumen catheter was then advanced to the right femoral vein and the guidewire subsequently removed. All 3 ports flush and drawl with ease. 3-0 silk suture was utilized to suture the triple-lumen catheter in place. A Biopatch was placed at the insertion site. A sterile dressing was utilized to cover the triple-lumen catheter site. Estimated blood loss minimal. Complications none. Specimens none. Anesthesia: local Surgeon: CALEB WU Estimated blood loss: minimal Condition: critical Disposition: ICU
[2022-06-30] MEDS ORDERED: hydrALAZINE 20 MG/1 ML INJ IV PRN (13:03)
[2022-06-30] MEDS ORDERED: SODIUM CHLORIDE 0.9% 1000 ML IV SOLN IV SCH (13:15)
[2022-06-30] MEDS: CEFEPIME/NS 1 GM/100 ML 1 GM/100 ML BAG IV SCH (16:18)
--- NOTE | 2022-06-30 20:10 | XRay Report ---
ABDOMEN 1 VIEW 06/30/2022 7:41 PM INDICATION / CLINICAL INFORMATION: OG placement. COMPARISON: 06/30/2022 FINDINGS: TUBES / LINES: Satisfactory nasogastric tube position within the stomach. There is also a rectal tube in place. BOWEL GAS PATTERN: Partial decompression of the stomach and otherwise stable. Prominent rectal stool. FREE AIR / EXTRALUMINAL GAS: None. ADDITIONAL FINDINGS: Suspected small calcified uterine fibroids. IMPRESSION: 1. Satisfactory nasogastric tube position within the stomach. 2. Prominent rectal stool and suspected indwelling rectal tube. Signer Name: Dereck Camacho MD Signed: 06/30/2022 8:06 PM Workstation Name: [id number]
[2022-06-30] MEDS ORDERED: DOCUSATE SODIUM 100 MG/10 ML ORAL LIQD PO SCH (22:00)
[2022-06-30] MEDS ORDERED: MIRTAZAPINE 15 MG TAB PO SCH (22:00)
[2022-06-30] MEDS ORDERED: BENAZEPRIL HCL 40 MG PO SCH (22:00)
[2022-06-30] MEDS ORDERED: DOCUSATE SODIUM 100 MG CAP PO SCH (22:00)
[2022-06-30] MEDS ORDERED: levETIRAcetam 500 MG TAB PO SCH (22:00)
[2022-06-30] MEDS: HEPARIN 5,000 UNIT/1 ML VIAL SUB-Q SCH (22:10)
[2022-06-30] MEDS: SODIUM CHLORIDE 0.9% 1000 ML 1,000 ML IV SCH (23:25)
[2022-07-01] MEDS: CEFEPIME/NS 1 GM/100 ML 1 GM/100 ML BAG IV SCH (02:08)
[2022-07-01 05:00] LABS: Basophils % (Auto) 0.2 % (0.0-1.8); Hematocrit 35.9 % (30.3-42.9); Hemoglobin 11.7 gm/dl (10.1-14.3); Lymphocytes # (Auto) 1.7 K/mm3 (1.2-5.4); Lymphocytes % (Auto) 12.9 % (13.4-35.0); Mean Corpuscular HGB Conc 33 % (30-34); Mean Corpuscular Volume 88 fl (79-97); Monocytes # (Auto) 1.1 K/mm3 (0.0-0.8); Monocytes % (Auto) 8.2 % (0.0-7.3); Platelet Count 310 K/mm3 (140-440); Red Blood Count 4.08 M/mm3 (3.65-5.03); Red Cell Distribution Width 12.9 % (13.2-15.2)
[2022-07-01 05:03] LABS: Calcium 9.1 mg/dL (8.4-10.2)
[2022-07-01 05:16] LABS: ABG Base Excess -3.8 mmol/L (-2.0-3.0); ABG HCO3 20.3 mmol/L (20.0-26.0); ABG Methemoglobin 0.5 % (0.0-1.5); ABG PH 7.394 pH Units (7.350-7.450); ABG PO2 160.8 mm Hg (80.0-90.0)
[2022-07-01] MEDS ORDERED: LACTATED RINGERS 1,000 ML IV ONE (09:30)
--- NOTE | 2022-07-01 09:30 | Electrocardiograph Report ---
[facility] Test Date: 2022-06-30 Test Time: 10:57:49 Pat Name: RADHA GONZALEZ Department: Room: A258 Gender: F Back Roller: DUDLEY : 1935 Requested By: MALCOLM MCKEON Order Number: [id number] Reading MD: Joe Wagner Measurements Intervals [place] Rate: 133 P: 72 MT: 147 QRS: -1 QRSD: 68 T: 101 QT: 303 QTc: 451 Interpretive Statements Sinus tachycardia Atrial premature complex Repolarization abnormality, prob rate related non specific st-t No previous ECG available for comparison Electronically Signed On 07-01-2022 9:30:00 EDT by Joe Wagner
[2022-07-01] MEDS ORDERED: SODIUM POLYSTYRENE 15 GM/60 ML ORAL LIQD PO SCH (10:00)
[2022-07-01] MEDS ORDERED: amLODIPine 10 MG TAB PO SCH (10:00)
[2022-07-01] MEDS ORDERED: LISINOPRIL 40 MG TAB PO SCH (10:00)
[2022-07-01] MEDS ORDERED: SENNOSIDES 8.6 MG TAB PO SCH (10:00)
[2022-07-01] MEDS ORDERED: FERROUS SULFATE 325 MG TAB PO SCH (10:00)
[2022-07-01] MEDS: levETIRAcetam 500 MG/5 ML ORAL LIQD FEEDTUBE SCH ×2 (10:04→21:11)
[2022-07-01] MEDS: DOCUSATE SODIUM 100 MG/10 ML ORAL LIQD FEEDTUBE SCH ×2 (10:04→21:11)
[2022-07-01] MEDS: FERROUS SULFATE 300 MG (60MG Elemental Iron) / 5 mL ORAL LIQD PO SCH (10:04)
[2022-07-01] MEDS: SENNOSIDES 8.6 MG TAB FEEDTUBE SCH (10:05)
[2022-07-01] MEDS: amLODIPine 10 MG TAB FEEDTUBE SCH (10:05)
[2022-07-01] MEDS: HEPARIN 5,000 UNIT/1 ML VIAL SUB-Q SCH ×2 (10:05→21:11)
--- NOTE | 2022-07-01 11:14 | Consultation ---
History of Present Illness Consult date: 07/01/22 Reason for consult: other History of present illness: 87 y/o female transferred from [facility] secondary to altered mental status. Intubated for what I am assuming is airway protection. Awake and alert this am. NOt on sedation. Past History Past Medical History: diabetes, DVT, heart failure, hypertension, seizures, stroke, other (See HPI) Past Surgical History: Other (Esophageal surgery) Social history: . denies: smoking, alcohol abuse Family history: diabetes, hypertension Medications and Allergies Allergies Allergy/AdvReac Type Severity Reaction Status Date / Time seafood Allergy Anaphylaxis Uncoded 06/30/22 10:05 Home Medications Medication Instructions Recorded Confirmed Last Taken Type levETIRAcetam [Keppra TAB] 500 mg PO BID #60 tablet 03/12/17 05/04/17 Unknown Rx Acetaminophen [Acetaminophen TAB] 650 mg PO Q6HR PRN 05/04/17 05/04/17 Unknown History Acetaminophen [Tylenol Arthritis] 650 mg PO Q12H PRN 05/04/17 05/04/17 Unknown History Benazepril HCl 25 mg PO BID 05/04/17 05/04/17 Unknown History Docusate Sodium [Colace CAP] 100 mg PO BID 05/04/17 05/04/17 Unknown History Ferrous Sulfate [Feosol 325 MG tab] 325 mg PO QDAY 05/04/17 05/04/17 Unknown History Mag Hydrox/Aluminum Hyd/Simeth 30 ml PO Q6H PRN 05/04/17 05/04/17 Unknown History [Maalox Advanced Suspension] Mirtazapine [Remeron 15mg TAB] 15 mg PO QHS 05/04/17 05/04/17 Unknown History Montelukast [Singulair] 10 mg PO QPM 05/04/17 05/04/17 Unknown History Sennosides Tab [Senokot] 2 tab PO QDAY 05/04/17 05/04/17 Unknown History glucagon HCL [Glucagon HCl] 1 mg IM Q15MIN PRN 05/04/17 05/04/17 Unknown History amLODIPine 10 mg PO QDAY #30 tablet 05/07/17 Unknown Rx Active Meds: Active Medications Acetaminophen (Acetaminophen 325 Mg Tab) 650 mg PO Q6H PRN PRN Reason: Pain MILD(1-3)/Fever >100.5/MCGRATH Albuterol (Albuterol 2.5 Mg/3 Ml Nebu) 2.5 mg IH Q3HRT PRN PRN Reason: Shortness Of Breath Amlodipine Besylate (Amlodipine 10 Mg Tab) 10 mg FEEDTUBE QDAY [facility] Last Admin: 07/01/22 10:05 Dose: 10 mg Docusate Sodium (Docusate Sodium 100 Mg/10 Ml Oral Liqd) 100 mg FEEDTUBE BID SC H Last Admin: 07/01/22 10:04 Dose: 100 mg Ferrous Sulfate (Ferrous Sulfate 300 Mg (60mg Elemental Iron) / 5 Ml Oral Liqd) 300 mg PO QDAY [facility] Last Admin: 07/01/22 10:04 Dose: 300 mg Heparin Sodium (Porcine) (Heparin 5,000 Unit/1 Ml Vial) 5,000 unit SUB-Q Q12HR [facility] Last Admin: 07/01/22 10:05 Dose: 5,000 unit Hydralazine HCl (Hydralazine 20 Mg/1 Ml Inj) 10 mg IV Q8HR PRN PRN Reason: Hypertension Sodium Chloride (Nacl 0.9% 1000 Ml) 1,000 mls @ 75 mls/hr IV DIRECT [facility] Last Admin: 06/30/22 23:25 Dose: 75 mls/hr Cefepime HCl (Cefepime/Ns 2 Gm/100 Ml) 2 gm in 100 mls @ 200 mls/hr IV Q24H [facility]; Protocol Levetiracetam (Levetiracetam 500 Mg/5 Ml Oral Liqd) 500 mg FEEDTUBE BID [facility] Last Admin: 07/01/22 10:04 Dose: 500 mg Mirtazapine (Mirtazapine 15 Mg Tab) 15 mg FEEDTUBE QHS [facility] Oxycodone/Acetaminophen (Oxycodone /Acetaminophen 5-325mg Tab) 1 tab PO Q6H PRN PRN Reason: Pain, Moderate (4-6) Senna (Sennosides 8.6 Mg Tab) 8.6 mg FEEDTUBE QDAY [facility] Last Admin: 07/01/22 10:05 Dose: 8.6 mg Sodium Chloride (Sodium Chloride 0.9% 10 Ml Flush Syringe) 10 ml IV BID [facility] Last Admin: 07/01/22 10:06 Dose: 10 ml Sodium Chloride (Sodium Chloride 0.9% 10 Ml Flush Syringe) 10 ml IV PRN PRN PRN Reason: LINE FLUSH Sodium Polystyrene Sulfonate (Sodium Polystyrene 15 Gm/60 Ml Oral Liqd) 15 gm PO ONCE@1000 JAVIER Stop: 07/01/22 14:00 Last Admin: 07/01/22 10:04 Dose: 15 gm Physical Examination Vital signs: Vital Signs Temp Pulse Resp BP Pulse Ox 98.0 F 144 H 22 160/120 92 06/30/22 09:03 06/30/22 09:03 06/30/22 09:03 06/30/22 09:03 06/30/22 09:03 Results - Laboratory Findings CBC and BMP: 07/02/22 04:58 07/02/22 04:58 ABG ABG pH 7.394 pH Units (7.350-7.450) 07/01/22 05:00 ABG pCO2 34.0 mm Hg 07/01/22 05:00 ABG pO2 160.8 mm Hg (80.0-90.0) H 07/01/22 05:00 ABG O2 Saturation 99.0 % (95.0-99.0) 07/01/22 05:00 Abnormal lab findings: Abnormal Labs 06/30/22 06/30/22 06/30/22 10:01 10:01 10:55 WBC 17.9 H RDW 13.1 L Lymph % (Auto) 6.5 L [place] % (Auto) [place] # (Auto) 0.9 H Seg Neutrophils % 88.5 H Seg Neutrophils # 15.8 H ABG pH 7.282 L ABG pO2 230.5 H ABG HCO3 13.9 L ABG O2 Saturation 99.3 H ABG Base Excess -11.5 L ABG Hemoglobin Sodium 135 L Potassium Chloride 91.5 L Carbon Dioxide 12 L BUN 27 H Creatinine Glucose 196 H POC Glucose Lactic Acid 06/30/22 06/30/22 07/01/22 21:50 23:26 04:14 WBC 13.1 H RDW 12.9 L Lymph % (Auto) 12.9 L [place] % (Auto) 8.2 H [place] # (Auto) 1.1 H Seg Neutrophils % 78.7 H Seg Neutrophils # 10.3 H ABG pH ABG pO2 ABG HCO3 ABG O2 Saturation ABG Base Excess ABG Hemoglobin Sodium Potassium Chloride Carbon Dioxide BUN Creatinine Glucose POC Glucose 226 H Lactic Acid 3.50 H* 07/01/22 07/01/22 07/01/22 04:14 04:14 05:00 WBC RDW Lymph % (Auto) [place] % (Auto) [place] # (Auto) Seg Neutrophils % Seg Neutrophils # ABG pH ABG pO2 160.8 H ABG HCO3 ABG O2 Saturation ABG Base Excess -3.8 L ABG Hemoglobin 11.7 L Sodium Potassium 5.2 H D Chloride Carbon Dioxide BUN 36 H Creatinine 1.3 H Glucose 148 H POC Glucose Lactic Acid 2.90 H* 07/01/22 06:07 WBC RDW Lymph % (Auto) [place] % (Auto) [place] # (Auto) Seg Neutrophils % Seg Neutrophils # ABG pH ABG pO2 ABG HCO3 ABG O2 Saturation ABG Base Excess ABG Hemoglobin Sodium Potassium Chloride Carbon Dioxide BUN Creatinine Glucose POC Glucose 174 H Lactic Acid - Diagnostic Findings Chest x-ray: image reviewed Assessment and Plan 87 female with altered mental status. 1. Extubate 2. Swallow eval 3. PT/OT consult. CCT 31 minutes.
[2022-07-01] MEDS: SODIUM CHLORIDE 0.9% 1000 ML 1,000 ML IV SCH (12:33)
--- NOTE | 2022-07-01 14:29 | Consultation ---
History of Present Illness Consult date: 07/01/22 Reason for Consult: AMS Chief complaint: AMS History of present illness: 87 yo female with seizure d/o, cva, cerebrovascular dx,, htn, dm, chf, vascular dementia, dvt, who presented where she was found by the staff at her facility with worsening encephalopathy with weakness. Telestroke physician assessed the patient and notes concern for seizure vs. metabolic encephalopathy after noting that the patient was found initially completely unresponsive and then improved in responsiveness with noted left-sided weakness. Workup in the ED revealed acute respiratory failure (requiring intubation), possible sepsis, and h yponatremia. Patient was not observed with any clinical seizure activity overnight or this morning, per RN. Patient was extubated this morning. Patient is mute at baseline and is not able to provide any history. Past History Past Medical History: diabetes, DVT, heart failure, hypertension, seizures, stroke, other (See HPI) Past Surgical History: Other (Esophageal surgery) Social history: . denies: smoking, alcohol abuse Family history: diabetes, hypertension Medications and Allergies Allergies Allergy/AdvReac Type Severity Reaction Status Date / Time seafood Allergy Anaphylaxis Uncoded 06/30/22 10:05 Home Medications Medication Instructions Recorded Confirmed Last Taken Type levETIRAcetam [Keppra TAB] 500 mg PO BID #60 tablet 03/12/17 05/04/17 Unknown Rx Acetaminophen [Acetaminophen TAB] 650 mg PO Q6HR PRN 05/04/17 05/04/17 Unknown History Acetaminophen [Tylenol Arthritis] 650 mg PO Q12H PRN 05/04/17 05/04/17 Unknown History Benazepril HCl 25 mg PO BID 05/04/17 05/04/17 Unknown History Docusate Sodium [Colace CAP] 100 mg PO BID 05/04/17 05/04/17 Unknown History Ferrous Sulfate [Feosol 325 MG tab] 325 mg PO QDAY 05/04/17 05/04/17 Unknown History Mag Hydrox/Aluminum Hyd/Simeth 30 ml PO Q6H PRN 05/04/17 05/04/17 Unknown History [Maalox Advanced Suspension] Mirtazapine [Remeron 15mg TAB] 15 mg PO QHS 05/04/17 05/04/17 Unknown History Montelukast [Singulair] 10 mg PO QPM 05/04/17 05/04/17 Unknown History Sennosides Tab [Senokot] 2 tab PO QDAY 05/04/17 05/04/17 Unknown History glucagon HCL [Glucagon HCl] 1 mg IM Q15MIN PRN 05/04/17 05/04/17 Unknown History amLODIPine 10 mg PO QDAY #30 tablet 05/07/17 Unknown Rx Active Meds: Active Medications Acetaminophen (Acetaminophen 325 Mg Tab) 650 mg PO Q6H PRN PRN Reason: Pain MILD(1-3)/Fever >100.5/MCGRATH Albuterol (Albuterol 2.5 Mg/3 Ml Nebu) 2.5 mg IH Q3HRT PRN PRN Reason: Shortness Of Breath Amlodipine Besylate (Amlodipine 10 Mg Tab) 10 mg FEEDTUBE QDAY [facility] Last Admin: 07/01/22 10:05 Dose: 10 mg Docusate Sodium (Docusate Sodium 100 Mg/10 Ml Oral Liqd) 100 mg FEEDTUBE BID [facility] Last Admin: 07/01/22 10:04 Dose: 100 mg Ferrous Sulfate (Ferrous Sulfate 300 Mg (60mg Elemental Iron) / 5 Ml Oral Liqd) 300 mg PO QDAY [facility] Last Admin: 07/01/22 10:04 Dose: 300 mg Heparin Sodium (Porcine) (Heparin 5,000 Unit/1 Ml Vial) 5,000 unit SUB-Q Q12HR [facility] Last Admin: 07/01/22 10:05 Dose: 5,000 unit Hydralazine HCl (Hydralazine 20 Mg/1 Ml Inj) 10 mg IV Q8HR PRN PRN Reason: Hypertension Sodium Chloride (Nacl 0.9% 1000 Ml) 1,000 mls @ 75 mls/hr IV DIRECT [facility] Last Admin: 07/01/22 12:33 Dose: 75 mls/hr Cefepime HCl (Cefepime/Ns 2 Gm/100 Ml) 2 gm in 100 mls @ 200 mls/hr IV Q24H [facility]; Protocol Levetiracetam (Levetiracetam 500 Mg/5 Ml Oral Liqd) 500 mg FEEDTUBE BID [facility] Last Admin: 07/01/22 10:04 Dose: 500 mg Mirtazapine (Mirtazapine 15 Mg Tab) 15 mg FEEDTUBE QHS [facility] Oxycodone/Acetaminophen (Oxycodone /Acetaminophen 5-325mg Tab) 1 tab PO Q6H PRN PRN Reason: Pain, Moderate (4-6) Senna (Sennosides 8.6 Mg Tab) 8.6 mg FEEDTUBE QDAY [facility] Last Admin: 07/01/22 10:05 Dose: 8.6 mg Sodium Chloride (Sodium Chloride 0.9% 10 Ml Flush Syringe) 10 ml IV BID [facility] Last Admin: 07/01/22 10:06 Dose: 10 ml Sodium Chloride (Sodium Chloride 0.9% 10 Ml Flush Syringe) 10 ml IV PRN PRN PRN Reason: LINE FLUSH Review of Systems ROS unobtainable: due to mental status Physical Examination - Vital Signs Vital Signs: Vital Signs Temp Pulse Resp BP Pulse Ox 98.0 F 144 H 22 160/120 92 06/30/22 09:03 06/30/22 09:03 06/30/22 09:03 06/30/22 09:03 06/30/22 09:03 - Physical Exam Narrative exam: Gen: nad, appears thin; Head: normocephalic; Eyes: no gaze deviation; no ptosis; ENT: no vocalization; +ngt; CVS: warm and well-perfused; Pulm: normal work of breathing w/ intermittent cough; GI: appears non-distended; Ext: no cyanosis appreciated at distal extremities with bilateral mittens and bilateral pressure-boots; Skin: no acute rash appreciated at distal extremities; Heme: no pathologic ecchymosis appreciated at distal extremities; Neuro: alert, mute, follows basic / simple commands only; CN 2 - PERRL, visual marks - tracks o/w pt is not able to participate, CN 3, 4, 6 - no gaze deviation, CN 5/7 - blinks spontaneously, CN 8 - hearing grossly intact, CN 9, 10 - spontaneous cough noted, CN 11 / 12 - pt is not cooperative; Motor - at least 3/5 at right arm/leg proximally; at least 3-/5 at left arm proximally; at least 2/5 at left leg proximally; Sensory - oves all exts to tactile stimuli, Cerebellar - pt cannot participate due to weakness / aphasia; Gait - deferred secondary to fall risk; NIHSS (1a.) Level of Consciousness:0 (1b.) LOC Questions:2 (1c.) LOC Commands:1 (2.) Best Gaze:0 (3.) Visual:0 (4.) Facial Palsy:0 (5a.) Motor Arm, Left:2 (5b.) Motor Arm, Right:2 (6a.) Motor Leg, Left:3 (6b.) Motor Leg, Right:3 (7.) Limb Ataxia:0 (8.) Sensory:0 (9.) Best Language:3 (10.) Dysarthria:2 (11.) Extinction and Inattention:2 NIHSS Total Score: 20 Results - Laboratory Findings CBC and BMP: 07/01/22 04:14 07/01/22 04:14 Abnormal Lab Findings: Abnormal Labs 06/30/22 06/30/22 06/30/22 10:01 10:01 10:55 WBC 17.9 H RDW 13.1 L Lymph % (Auto) 6.5 L [place] % (Auto) [place] # (Auto) 0.9 H Seg Neutrophils % 88.5 H Seg Neutrophils # 15.8 H ABG pH 7.282 L ABG pO2 230.5 H ABG HCO3 13.9 L ABG O2 Saturation 99.3 H ABG Base Excess -11.5 L ABG Hemoglobin Sodium 135 L Potassium Chloride 91.5 L Carbon Dioxide 12 L BUN 27 H Creatinine Glucose 196 H POC Glucose Lactic Acid 06/30/22 06/30/22 07/01/22 21:50 23:26 04:14 WBC 13.1 H RDW 12.9 L Lymph % (Auto) 12.9 L [place] % (Auto) 8.2 H [place] # (Auto) 1.1 H Seg Neutrophils % 78.7 H Seg Neutrophils # 10.3 H ABG pH ABG pO2 ABG HCO3 ABG O2 Saturation ABG Base Excess ABG Hemoglobin Sodium Potassium Chloride Carbon Dioxide BUN Creatinine Glucose POC Glucose 226 H Lactic Acid 3.50 H* 07/01/22 07/01/22 07/01/22 04:14 04:14 05:00 WBC RDW Lymph % (Auto) [place] % (Auto) [place] # (Auto) Seg Neutrophils % Seg Neutrophils # ABG pH ABG pO2 160.8 H ABG HCO3 ABG O2 Saturation ABG Base Excess -3.8 L ABG Hemoglobin 11.7 L Sodium Potassium 5.2 H D Chloride Carbon Dioxide BUN 36 H Creatinine 1.3 H Glucose 148 H POC Glucose Lactic Acid 2.90 H* 07/01/22 06:07 WBC RDW Lymph % (Auto) [place] % (Auto) [place] # (Auto) Seg Neutrophils % Seg Neutrophils # ABG pH ABG pO2 ABG HCO3 ABG O2 Saturation ABG Base Excess ABG Hemoglobin Sodium Potassium Chloride Carbon Dioxide BUN Creatinine Glucose POC Glucose 174 H Lactic Acid Assessment and Plan 87 yo female with seizure d/o, cva, cerebrovascular dx,, htn, dm, chf, vascular dementia, dvt, who presented where she was found by the staff at her facility with worsening encephaloapathy with weakness (left-sided) in the setting of possible sirs with respiratory failure. 1. Acute Metabolic Encephalopathy - in the setting of underlying respiratory distress / infection (?uti mentioned in hpi but ua results not available to me); per primary team. 2. Seizure - EEG report pending; continue Keppra 500 mg iv/po bid; aggressive treatment of underlying infection / electrolyte abnormalities (maintain eunatremia / eumagnesemia) per primary team; confirm covid-19; seizure precautions / seizure restrictions. 3. Acute Ischemic Stroke - less likely; recommend mri brain wo contrast when clinicaly stable; aspirin 81 mg po qday (if no contraindication) / statin therapy only for a goal ldl of 70 o/w no statin therapy indicated. 4. Generalized Weakness - ordered serologies. 5. Left-sided Weakness - unclear if this is her baseline from previous cva or if ethan's paresis or if new stroke; if new / acute, recommend pt/ot evaluation / monitoring. 6. Hypertension - permissive htn until mri brain is resulted. 7. DM - aim for euglycemia. 8. Dementia - serologies ordered. Lawrence Perez MD Neurology [id number]
--- NOTE | 2022-07-01 15:47 | Progress Note ---
Assessment and Plan Assessment and plan: This is a 87-year-old female with vascular dementia, cerebral atherosclerosis, DM, CHF, HTN, seizure disorder, CVA, debility, malnutrition, DVT admitted with Neuro: Acute metabolic encephalopathy, seizure, rule out ischemic CVA, h/o seizure disorder, cerebral atherosclerosis, vascular dementia, CVA, debility -On arrival to the ED patient is GCS of 4, NIHSS 31 -Neurology consulted, appreciate recommendations -Continue Keppra 500 mg twice daily -Reorientation as needed -Maintain sleep-wake cycle -aspiration/seizure precautions -As needed analgesia -CT head showed no focal mass, hemorrhage, hydrocephalus or acute or large territorial infarct -CTA head showed no signs large vessel occlusion, 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 vent settings: AC Rate 12, TV 350, Peep6, FiO2 28% -See RT notes for titration -Extubated today to NC -A.m. ABG and CXR noted -VAP bundle -SPO2 monitoring GI: h/o malnutrition -CC diet, pureed -RN to complete bedside swallow eval -Patient communicated to PCT that she does eat at longterm -PPI -BR: senokot : Acute kidney injury secondary to vasomotor nephropathy, hyperkalemia -Consider Nephrology consult if does not improve -Monitor intake and output -Renally dose medications -Avoid nephrotoxic medications -Urine lytes pending -Kionex -Trend BMP ID: SIRS, r/o sepsis, Lactic Acidosis -Admitted with tachycardia, ruthie, lactic acidosis, leukocytosis -Antibiotic therapy with cefepime -f/u blood culture -Monitor WBC and temperature curve Endo: h/o DM -Avoid hypoglycemia -SSI -Accu-Cheks q. 6hr Heme: Leukocytosis -Trend CBC -Transfuse hemoglobin less than 7 -SCDs to BLE while in bed The high probability of a clinically significant, sudden or life threatening deterioration of the [] system(s) required my full and direct attention, intervention and personal management. The aggregate critical care time was [] minutes. This time is in addition to time spent performing reported procedures but includes the following: [x] Data Review and interpretation [x] Patient assessment and monitoring of vital signs [x] Documentation [x] Medication orders and management Disposition Plan: icu Total Time Spent with Patient (Minutes): 60 History Interval history: This is is an 87-year-old female who is resident of a longterm with vascular dementia, cerebral atherosclerosis, DM, CHF, HTN, seizure disorder, CVA, debility, malnutrition, DVT (not currently on therapeutic anticoagulation) who presented to the emergency department on 06/30 via EMS after being notified when she was found to have increased confusion and weakness at the longterm. Upon arrival the patient was found to be in distress and transferred to [facility]. In the emergency department patient had a pulse ox of 86% on room air, sepsis secondary to UTI, toxic metabolic encephalopathy, metabolic acidosis, hyponatremia as well as hypertensive urgency at 203/103. Teleneurology did assess the patient and recommended EEG. Patient was intubated in the emergency department. Patient was admitted to the hospitalist service to the ICU with consults to [facility]. Hospital course to date: 07/01: Neurology consulted, patient placed on CPAP and extubated), LR bolus for hypotension, EEG ordered and neurology consulted. Lisinopril discontinued. Hospitalist Physical - Constitutional Vitals: Temp Pulse Resp BP Pulse Ox 98.1 F 107 H 16 149/73 100 07/01/22 11:40 07/01/22 13:00 07/01/22 13:00 07/01/22 13:00 07/01/22 13:00 General appearance: Present: cachectic - EENT Eyes: Present: PERRL, EOM intact ENT: dentition normal - Neck Neck: Present: normal ROM - Respiratory Respiratory effort: normal Respiratory: bilateral: diminished - Cardiovascular Rhythm: regular Heart Sounds: Present: S1 & S2. Absent: systolic murmur, diastolic murmur - Extremities Extremities: no ischemia, pulses intact, pulses symmetrical, No edema, normal temperature, normal color Peripheral Pulses: within normal limits - Abdominal General gastrointestinal: soft, non-tender, non-distended, normal bowel sounds - Integumentary Integumentary: Present: warm, dry - Psychiatric Psychiatric: cooperative - Neurologic Neurologic: CNII-XII intact, no focal deficits, moves all extremities - Allied Health Allied health notes reviewed: nursing, RT, social work HEART Score - HEART Score Troponin: Troponin T < 0.010 ng/mL (0.00-0.029) 06/30/22 10:01 Results - Labs CBC & Chem 7: 07/01/22 04:14 07/01/22 04:14 Labs: Laboratory Last Values WBC 13.1 K/mm3 (4.5-11.0) H 07/01/22 04:14 RBC 4.08 M/mm3 (3.65-5.03) 07/01/22 04:14 Hgb 11.7 gm/dl (10.1-14.3) 07/01/22 04:14 Hct 35.9 % (30.3-42.9) 07/01/22 04:14 MCV 88 fl (79-97) 07/01/22 04:14 MCH 29 pg (28-32) 07/01/22 04:14 MCHC 33 % (30-34) 07/01/22 04:14 RDW 12.9 % (13.2-15.2) L 07/01/22 04:14 Plt Count 310 K/mm3 (140-440) 07/01/22 04:14 Lymph % (Auto) 12.9 % (13.4-35.0) L 07/01/22 04:14 [place] % (Auto) 8.2 % (0.0-7.3) H 07/01/22 04:14 Eos % (Auto) 0.0 % (0.0-4.3) 07/01/22 04:14 Baso % (Auto) 0.2 % (0.0-1.8) 07/01/22 04:14 Lymph # (Auto) 1.7 K/mm3 (1.2-5.4) 07/01/22 04:14 [place] # (Auto) 1.1 K/mm3 (0.0-0.8) H 07/01/22 04:14 Eos # (Auto) 0.0 K/mm3 (0.0-0.4) 07/01/22 04:14 Baso # (Auto) 0.0 K/mm3 (0.0-0.1) 07/01/22 04:14 Seg Neutrophils % 78.7 % (40.0-70.0) H 07/01/22 04:14 Seg Neutrophils # 10.3 K/mm3 (1.8-7.7) H 07/01/22 04:14 ABG pH 7.394 pH Units (7.350-7.450) 07/01/22 05:00 ABG pCO2 34.0 mm Hg 07/01/22 05:00 ABG pO2 160.8 mm Hg (80.0-90.0) H 07/01/22 05:00 ABG HCO3 20.3 mmol/L (20.0-26.0) 07/01/22 05:00 ABG O2 Saturation 99.0 % (95.0-99.0) 07/01/22 05:00 ABG O2 Content 16.4 (0.0-44) 07/01/22 05:00 ABG Base Excess -3.8 mmol/L (-2.0-3.0) L 07/01/22 05:00 ABG Hemoglobin 11.7 gm/dl (12.0-16.0) L 07/01/22 05:00 ABG Carboxyhemoglobin 1.2 % (0.0-5.0) 07/01/22 05:00 ABG Methemoglobin 0.5 % (0.0-1.5) 07/01/22 05:00 Oxyhemoglobin 97.4 % (95.0-99.0) 07/01/22 05:00 FiO2 35 % 07/01/22 05:00 Sodium 141 mmol/L (137-145) 07/01/22 04:14 Potassium 5.2 mmol/L (3.6-5.0) H D 07/01/22 04:14 Chloride 103.3 mmol/L (98-107) 07/01/22 04:14 Carbon Dioxide 23 mmol/L (22-30) D 07/01/22 04:14 Anion Gap 20 mmol/L 07/01/22 04:14 BUN 36 mg/dL (7-17) H 07/01/22 04:14 Creatinine 1.3 mg/dL (0.6-1.2) H 07/01/22 04:14 Estimated GFR 47 ml/min 07/01/22 04:14 BUN/Creatinine Ratio 28 % 07/01/22 04:14 Glucose 148 mg/dL (65-100) H 07/01/22 04:14 POC Glucose 174 mg/dL (70-105) H 07/01/22 06:07 Lactic Acid 2.90 mmol/L (0.7-2.0) H* 07/01/22 04:14 Calcium 9.1 mg/dL (8.4-10.2) 07/01/22 04:14 Total Bilirubin 0.40 mg/dL (0.1-1.2) 06/30/22 10:01 AST 25 units/L (5-40) 06/30/22 10:01 ALT 11 units/L (7-56) 06/30/22 10:01 Alkaline Phosphatase 85 units/L (35-129) 06/30/22 10:01 Troponin T < 0.010 ng/mL (0.00-0.029) 06/30/22 10:01 Total Protein 7.0 g/dL (6.3-8.2) 06/30/22 10:01 Albumin 4.2 g/dL (3.9-5) 06/30/22 10:01 Albumin/Globulin Ratio 1.5 % 06/30/22 10:01 Blood Type B POSITIVE 06/30/22 23:26 Antibody Screen Negative 06/30/22 23:26 Microbiology: Microbiology 06/30/22 10:50 Tracheal Aspirate Sputum Culture - Preliminary 06/30/22 23:26 Peripheral/Venous Blood Culture - Preliminary Culture in Progress 06/30/22 23:26 Peripheral/Venous Blood Culture - Preliminary Culture in Progress Munoz/IV: Voiding Method Indwelling Catheter Active Medications - Current Medications Current Medications: Generic Name Dose Route Start Last Admin Trade Name Freq PRN Reason Stop Dose Admin Acetaminophen 650 mg 06/30/22 12:58 Acetaminophen 325 Mg Tab PO Q6H PRN Pain MILD(1-3)/Fever >100.5/MCGRATH Albuterol 2.5 mg 06/30/22 12:58 Albuterol 2.5 Mg/3 Ml Nebu IH Q3HRT PRN Shortness Of Breath Amlodipine Besylate 10 mg 07/01/22 10:00 07/01/22 10:05 Amlodipine 10 Mg Tab FEEDTUBE 10 mg QDAY JAVIER Administration Docusate Sodium 100 mg 07/01/22 10:00 07/01/22 10:04 Docusate Sodium 100 Mg/10 Ml Oral Liqd FEEDTUBE 100 mg BID JAVIER Administration Ferrous Sulfate 300 mg 07/01/22 10:00 07/01/22 10:04 Ferrous Sulfate 300 Mg (60mg Elemental Iron) / 5 Ml Oral Liqd PO 300 mg QDAY JAVIER Administration Heparin Sodium (Porcine) 5,000 unit 06/30/22 22:00 07/01/22 10:05 Heparin 5,000 Unit/1 Ml Vial SUB-Q 5,000 unit Q12HR JAVIER Administration Hydralazine HCl 10 mg 06/30/22 13:03 Hydralazine 20 Mg/1 Ml Inj IV Q8HR PRN Hypertension Sodium Chloride 1,000 mls @ 75 mls/hr 06/30/22 23:30 07/01/22 12:33 Nacl 0.9% 1000 Ml IV 75 mls/hr DIRECT JAVIER Administration Cefepime HCl 2 gm in 100 mls @ 200 mls/hr 07/01/22 22:00 Cefepime/Ns 2 Gm/100 Ml IV Q24H JAVIER Protocol Levetiracetam 500 mg 07/01/22 10:00 07/01/22 10:04 Levetiracetam 500 Mg/5 Ml Oral Liqd FEEDTUBE 500 mg BID JAVIER Administration Mirtazapine 15 mg 07/01/22 22:00 Mirtazapine 15 Mg Tab FEEDTUBE QHS JAVIER Oxycodone/Acetaminophen 1 tab 06/30/22 12:58 Oxycodone /Acetaminophen 5-325mg Tab PO Q6H PRN Pain, Moderate (4-6) Senna 8.6 mg 07/01/22 10:00 07/01/22 10:05 Sennosides 8.6 Mg Tab FEEDTUBE 8.6 mg QDAY JAVIER Administration Sodium Chloride 10 ml 06/30/22 22:00 07/01/22 10:06 Sodium Chloride 0.9% 10 Ml Flush Syringe IV 10 ml BID JAVIER Administration Sodium Chloride 10 ml 06/30/22 12:58 Sodium Chloride 0.9% 10 Ml Flush Syringe IV PRN PRN LINE FLUSH Nutrition/Malnutrition Assess - Dietary Evaluation Nutrition/Malnutrition Findings: Nutrition Notes Start: 07/01/22 10:44 Freq: Status: Active Protocol: Document 07/01/22 10:44 CM (Rec: 07/01/22 10:52 CM [id number]) Co-Sign 07/01/22 10:44 WW Nutrition Notes Need for Assessment generated from: weblogic developer,MST,Low BMI Initial or Follow up Brief Note Current Diagnosis Diabetes,Sepsis,Hypertension, Heart Failure,Respiratory Failure,Malnutrition,Stroke Other Pertinent Diagnosis AMS, Vascular Dementia, Cerebral Atherosclerosis, hx of esophageal surgery Current Diet NPO Labs/Tests 07/01: K 5.2 BUN 36 Cr 1.3 Pertinent Medications 07/01: Reviewed Height 5 ft Weight 38 kg [place] Body Weight (kg) 45.45 BMI 16.3 Weight change and time frame No unintentional wt loss reported per malnutrition screening tool. Weight Status Underweight Subjective/Other Information RD consult for malnutrition screening tool score 2 (Unsure wt loss/ no decreased appetite). Pt currently NPO, on mechanical ventilation in critical care unit. NG tube positioned in stomach per KUB. Abdomen flat, soft, with BS+ per physical assessment. Awaiting rounds for decision on enteral nutrition / no GI symptoms / bowel regimen initiated per RN. GI Symptoms None Difficulty In Swallowing Food Allergy No Skin Integrity/Comment WNL Current % PO Other Is patient on ventilator? Yes Nutrition Intervention Goal #1 Pt to advance to diet or enteral nutrition within 24-72 hours. Follow-Up By: 07/03/22 Additional Comments Monitor for diet advancement and BM.
[2022-07-01 17:08] LABS: Creatinine,Urine 49.9 mg/dL (0.1-20.0)
[2022-07-01 17:29] LABS: Color,Urine Straw (Yellow)
[2022-07-01 17:38] LABS: Amorphous Crystals,Urine Few; Bacteria,Urine 1+ /HPF (Negative); Hyaline Casts,Urine 1 /LPF; Mucus,Urine FEW /HPF
[2022-07-01] MEDS ORDERED: FUROSEMIDE 40 MG/4 ML INJ IV ONE (18:28)
[2022-07-01] MEDS: MIRTAZAPINE 15 MG TAB FEEDTUBE SCH (21:11)
[2022-07-01] MEDS ORDERED: CEFEPIME/NS 2 GM/100 ML 2 GM/100 ML BAG IV SCH (22:00)
[2022-07-02] MEDS: SODIUM CHLORIDE 0.9% 1000 ML 1,000 ML IV SCH (02:25)
[2022-07-02 05:17] LABS: Hematocrit 35.6 % (30.3-42.9); Hemoglobin 11.2 gm/dl (10.1-14.3); Mean Corpuscular HGB Conc 32 % (30-34); Mean Corpuscular Volume 89 fl (79-97); Platelet Count 271 K/mm3 (140-440); Red Blood Count 3.99 M/mm3 (3.65-5.03); Red Cell Distribution Width 13.1 % (13.2-15.2)
[2022-07-02 05:34] LABS: Blood Urea Nitrogen 20 mg/dL (7-17); Calcium 8.6 mg/dL (8.4-10.2); Hemolysis Index 6
[2022-07-02 05:35] LABS: BUN/Creatinine Ratio 29
--- NOTE | 2022-07-02 11:55 | XRay Report ---
ABDOMEN 1 VIEW(S) INDICATION / CLINICAL INFORMATION: dht placement. COMPARISON: None available. FINDINGS: TUBES / LINES: The feeding tube terminates in the distal stomach but it is not transpyloric. BOWEL GAS PATTERN: No significant abnormality. FREE AIR / EXTRALUMINAL GAS: None seen. ADDITIONAL FINDINGS: No significant additional findings. IMPRESSION: Feeding tube as described. Signer Name: Carlo Brasher Jr, MD Signed: 07/02/2022 11:51 AM Workstation Name: [id number]
--- NOTE | 2022-07-02 12:00 | Magnetic Resonance Report ---
MRI BRAIN WITHOUT CONTRAST INDICATION / CLINICAL INFORMATION: CVA. TECHNIQUE: Multisequence, multiplanar images were obtained. COMPARISON: CT head dated 06/29/2022 FINDINGS: CEREBRAL and CEREBELLAR HEMISPHERES: No evidence of mass or mass effect. No midline shift. No acute hemorrhage. No diffusion restriction to suggest acute infarct. No extra-axial fluid collection. M oderate diffuse cortical volume loss and moderate chronic microangiopathy in the white matter are aga in noted. No chronic infarct. VENTRICLES: Normal in size and configuration for age. VISUALIZED ORBITS: No significant abnormality. VISUALIZED PARANASAL SINUSES: 1 cm mucous retention cyst is noted in the inferior left maxillary sinu s. The remaining paranasal sinuses and mastoid air cells are clear. ADDITIONAL FINDINGS: None. IMPRESSION: 1. No acute intracranial abnormality. 2. Volume loss and chronic white matter changes. Signer Name: Carlo Brasher Jr, MD Signed: 07/02/2022 11:56 AM Workstation Name: [id number]
[2022-07-02] MEDS: HEPARIN 5,000 UNIT/1 ML VIAL SUB-Q SCH ×2 (12:30→21:54)
[2022-07-02] MEDS: DOCUSATE SODIUM 100 MG/10 ML ORAL LIQD FEEDTUBE SCH ×2 (12:30→21:53)
[2022-07-02] MEDS: FERROUS SULFATE 300 MG (60MG Elemental Iron) / 5 mL ORAL LIQD PO SCH (12:30)
[2022-07-02] MEDS: levETIRAcetam 500 MG/5 ML ORAL LIQD FEEDTUBE SCH ×2 (12:31→21:53)
[2022-07-02] MEDS: amLODIPine 10 MG TAB FEEDTUBE SCH (12:31)
[2022-07-02] MEDS: SENNOSIDES 8.6 MG TAB FEEDTUBE SCH (12:31)
--- NOTE | 2022-07-02 15:02 | Progress Note ---
Assessment and Plan 87 female with altered mental status. 07/02/22: Transfer to floor. Will sign off. 1. Extubate 2. Swallow eval 3. PT/OT consult. CCT 31 minutes. Subjective Date of service: 07/02/22 Interval history: no acute events. Transferring to floor. Objective Vital Signs - 12hr 07/02/22 07/02/22 07/02/22 03:38 04:00 04:07 Temperature 99.3 F Pulse Rate 96 H 98 H Respiratory 28 H Rate Blood Pressure 146/65 O2 Sat by Pulse 100 Oximetry 07/02/22 07/02/22 07/02/22 05:00 06:00 07:00 Temperature 97.4 F L Pulse Rate 96 H 94 H 97 H Respiratory 33 H 29 H 31 H Rate Blood Pressure 127/70 152/78 138/84 O2 Sat by Pulse 100 100 97 Oximetry 07/02/22 07/02/22 07/02/22 08:00 09:00 10:00 Temperature Pulse Rate 90 94 H 98 H Respiratory 28 H 33 H 26 H Rate Blood Pressure 138/84 176/86 168/73 O2 Sat by Pulse 100 100 100 Oximetry 07/02/22 07/02/22 07/02/22 11:00 11:22 12:00 Temperature 98.2 F Pulse Rate 96 H 93 H Respiratory 28 H 24 Rate Blood Pressure 183/78 183/78 O2 Sat by Pulse 97 98 Oximetry 07/02/22 07/02/22 13:00 14:00 Temperature Pulse Rate 134 H 108 H Respiratory 29 H 32 H Rate Blood Pressure 200/89 112/59 O2 Sat by Pulse 97 97 Oximetry CBC and BMP: 07/02/22 04:58 07/02/22 04:58 ABG, PT/INR, D-dimer: ABG ABG pH 7.394 pH Units (7.350-7.450) 07/01/22 05:00 ABG pCO2 34.0 mm Hg 07/01/22 05:00 ABG pO2 160.8 mm Hg (80.0-90.0) H 07/01/22 05:00 ABG O2 Saturation 99.0 % (95.0-99.0) 07/01/22 05:00 Abnormal lab findings: Abnormal Labs 06/30/22 06/30/22 06/30/22 10:01 10:01 10:55 WBC 17.9 H RDW 13.1 L Lymph % (Auto) 6.5 L [place] % (Auto) [place] # (Auto) 0.9 H Seg Neutrophils % 88.5 H Seg Neutrophils # 15.8 H ABG pH 7.282 L ABG pO2 230.5 H ABG HCO3 13.9 L ABG O2 Saturation 99.3 H ABG Base Excess -11.5 L ABG Hemoglobin Sodium 135 L Potassium Chloride 91.5 L Carbon Dioxide 12 L BUN 27 H Creatinine Glucose 196 H POC Glucose Lactic Acid Prealbumin Urine WBC (Auto) Urine Creatinine 06/30/22 06/30/22 07/01/22 21:50 23:26 04:14 WBC 13.1 H RDW 12.9 L Lymph % (Auto) 12.9 L [place] % (Auto) 8.2 H [place] # (Auto) 1.1 H Seg Neutrophils % 78.7 H Seg Neutrophils # 10.3 H ABG pH ABG pO2 ABG HCO3 ABG O2 Saturation ABG Base Excess ABG Hemoglobin Sodium Potassium Chloride Carbon Dioxide BUN Creatinine Glucose POC Glucose 226 H Lactic Acid 3.50 H* Prealbumin Urine WBC (Auto) Urine Creatinine 07/01/22 07/01/22 07/01/22 04:14 04:14 05:00 WBC RDW Lymph % (Auto) [place] % (Auto) [place] # (Auto) Seg Neutrophils % Seg Neutrophils # ABG pH ABG pO2 160.8 H ABG HCO3 ABG O2 Saturation ABG Base Excess -3.8 L ABG Hemoglobin 11.7 L Sodium Potassium 5.2 H D Chloride Carbon Dioxide BUN 36 H Creatinine 1.3 H Glucose 148 H POC Glucose Lactic Acid 2.90 H* Prealbumin Urine WBC (Auto) Urine Creatinine 07/01/22 07/01/22 07/01/22 06:07 08:26 08:26 WBC RDW Lymph % (Auto) [place] % (Auto) [place] # (Auto) Seg Neutrophils % Seg Neutrophils # ABG pH ABG pO2 ABG HCO3 ABG O2 Saturation ABG Base Excess ABG Hemoglobin Sodium Potassium Chloride Carbon Dioxide BUN Creatinine Glucose POC Glucose 174 H Lactic Acid Prealbumin Urine WBC (Auto) 42.0 H Urine Creatinine 49.9 H 07/01/22 07/01/22 07/01/22 15:09 16:31 23:43 WBC RDW Lymph % (Auto) [place] % (Auto) [place] # (Auto) Seg Neutrophils % Seg Neutrophils # ABG pH ABG pO2 ABG HCO3 ABG O2 Saturation ABG Base Excess ABG Hemoglobin Sodium Potassium Chloride Carbon Dioxide BUN Creatinine Glucose POC Glucose 130 H 130 H Lactic Acid Prealbumin 0.132 L Urine WBC (Auto) Urine Creatinine 07/02/22 07/02/22 07/02/22 04:58 04:58 05:28 WBC 13.9 H RDW 13.1 L Lymph % (Auto) [place] % (Auto) [place] # (Auto) Seg Neutrophils % Seg Neutrophils # ABG pH ABG pO2 ABG HCO3 ABG O2 Saturation ABG Base Excess ABG Hemoglobin Sodium Potassium Chloride Carbon Dioxide BUN 20 H Creatinine Glucose 122 H POC Glucose 119 H Lactic Acid Prealbumin Urine WBC (Auto) Urine Creatinine
--- NOTE | 2022-07-02 17:49 | Progress Note ---
Assessment and Plan Assessment and plan: This is a 87-year-old female with vascular dementia, cerebral atherosclerosis, DM, CHF, HTN, seizure disorder, CVA, debility, malnutrition, DVT admitted with Neuro: Acute metabolic encephalopathy, seizure, rule out ischemic CVA, h/o seizure disorder, cerebral atherosclerosis, vascular dementia, CVA, debility -On arrival to the ED patient is GCS of 4, NIHSS 31 -Neurology consulted, appreciate recommendations -Continue Keppra 500 mg twice daily -Reorientation as needed -Maintain sleep-wake cycle -aspiration/seizure precautions -As needed analgesia -CT head showed no focal mass, hemorrhage, hydrocephalus or acute or large territorial infarct -CTA head showed no signs large vessel occlusion, 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 -CTA neck showed no hemodynamically significant stenosis appreciated in the CTA of the neck, small pulmonary nodules and pleural thickening identified -MRI brain shows no acute acute abnormality, volume loss and chronic white matte r changes -EEG pending -PT/OT consulted Cardiac: Accelerated Hypertension (resolved), h/o HTN -Admitted with BP 203/103 -Blood pressure monitoring per protocol -Per neurology: Permissive hypertension until MRI -Amlodipine -2016 echocardiogram shows EF of 60 to 65% Respiratory: Acute hypoxic respiratory failure, h/o DVT -CCM consulted, appreciate recommendations -Intubated on 06/30 with 7.5 OETT at 22 cm at the lips and extubated on 07/01 -Currently on nasal cannula -SPO2 monitor per protocol -Pulmonary hygiene -Supplemental oxygen as needed GI: h/o malnutrition -According to family patient did have a diet at jail -Failed bedside swallow evaluation due to refusing to participate -ST evaluation completed which he failed -DHT -Nutrition consult for tube feeding -PPI -BR: senokot : Acute kidney injury secondary to vasomotor nephropathy (resolved), hyperkalemia (resolved) -Monitor intake and output -Renally dose medications -Avoid nephrotoxic medications -FENa 0.73% -Trend BMP ID: SIRS, ruled out sepsis, Lactic Acidosis (resolved) -Admitted with tachycardia, ruthie, lactic acidosis, leukocytosis -f/u blood culture -Monitor WBC and temperature curve Endo: h/o DM -Avoid hypoglycemia -SSI -Accu-Cheks q. 6hr Heme: Leukocytosis (improving) -Trend CBC -Transfuse hemoglobin less than 7 -SCDs to BLE while in bed The high probability of a clinically significant, sudden or life threatening deterioration of the [multiple] system(s) required my full and direct attention, intervention and personal management. The aggregate critical care time was [60] minutes. This time is in addition to time spent performing reported procedures but includes the following: [x] Data Review and interpretation [x] Patient assessment and monitoring of vital signs [x] Documentation [x] Medication orders and management Disposition Plan: Transferred to the floor Total Time Spent with Patient (Minutes): 60 History Interval history: This is is an 87-year-old female who is [facility] a jail with vascular dementia, cerebral atherosclerosis, DM, CHF, HTN, seizure disorder, CVA, debility, malnutrition, DVT (not currently on therapeutic anticoagulation) who presented to the emergency department on 06/30 via EMS after being notified when she was found to have increased confusion and weakness at the jail. Upon arrival the patient was found to be in distress and transferred to [facility]. In the emergency department patient had a pulse ox of 86% on room air, sepsis secondary to UTI, toxic metabolic encephalopathy, metabolic acidosis, hyponatremia as well as hypertensive urgency at 203/103. Teleneurology did assess the patient and recommended EEG. Patient was intubated in the emergency department. Patient was admitted to the hospitalist service to the ICU with consults to [facility]. Hospital course to date: 07/01: Neurology consulted, patient placed on CPAP and extubated), LR bolus for hypotension, EEG ordered and neurology consulted. Lisinopril discontinued. 07/02: DHT placed today, ST evaluation completed today which patient failed. Patient will be transferred to the floor. PT/OT consulted. Hospitalist Physical - Constitutional Vitals: Temp Pulse Resp BP Pulse Ox 99.3 F 112 H 34 H 110/62 100 07/02/22 15:00 07/02/22 16:00 07/02/22 16:00 07/02/22 16:00 07/02/22 16:00 General appearance: Present: no acute distress, cachectic - EENT Eyes: Present: PERRL, EOM intact ENT: dentition normal - Neck Neck: Present: normal ROM - Respiratory Respiratory effort: normal Respiratory: bilateral: CTA - Cardiovascular Rhythm: regular Heart Sounds: Present: S1 & S2. Absent: systolic murmur, diastolic murmur - Extremities Extremities: no ischemia, pulses intact, pulses symmetrical, No edema, normal temperature, normal color Peripheral Pulses: within normal limits - Abdominal General gastrointestinal: soft, non-tender, non-distended, normal bowel sounds - Integumentary Integumentary: Present: warm, dry - Psychiatric Psychiatric: cooperative - Neurologic Neurologic: no focal deficits - Allied Health Allied health notes reviewed: nursing, PT, ST, OT, RT, social work HEART Score - HEART Score Troponin: Troponin T < 0.010 ng/mL (0.00-0.029) 06/30/22 10:01 Results - Labs CBC & Chem 7: 07/02/22 04:58 07/02/22 04:58 Labs: Laboratory Last Values WBC 13.9 K/mm3 (4.5-11.0) H 07/02/22 04:58 RBC 3.99 M/mm3 (3.65-5.03) 07/02/22 04:58 Hgb 11.2 gm/dl (10.1-14.3) 07/02/22 04:58 Hct 35.6 % (30.3-42.9) 07/02/22 04:58 MCV 89 fl (79-97) 07/02/22 04:58 MCH 28 pg (28-32) 07/02/22 04:58 MCHC 32 % (30-34) 07/02/22 04:58 RDW 13.1 % (13.2-15.2) L 07/02/22 04:58 Plt Count 271 K/mm3 (140-440) 07/02/22 04:58 Lymph % (Auto) 12.9 % (13.4-35.0) L 07/01/22 04:14 [place] % (Auto) 8.2 % (0.0-7.3) H 07/01/22 04:14 Eos % (Auto) 0.0 % (0.0-4.3) 07/01/22 04:14 Baso % (Auto) 0.2 % (0.0-1.8) 07/01/22 04:14 Lymph # (Auto) 1.7 K/mm3 (1.2-5.4) 07/01/22 04:14 [place] # (Auto) 1.1 K/mm3 (0.0-0.8) H 07/01/22 04:14 Eos # (Auto) 0.0 K/mm3 (0.0-0.4) 07/01/22 04:14 Baso # (Auto) 0.0 K/mm3 (0.0-0.1) 07/01/22 04:14 Seg Neutrophils % 78.7 % (40.0-70.0) H 07/01/22 04:14 Seg Neutrophils # 10.3 K/mm3 (1.8-7.7) H 07/01/22 04:14 ABG pH 7.394 pH Units (7.350-7.450) 07/01/22 05:00 ABG pCO2 34.0 mm Hg 07/01/22 05:00 ABG pO2 160.8 mm Hg (80.0-90.0) H 07/01/22 05:00 ABG HCO3 20.3 mmol/L (20.0-26.0) 07/01/22 05:00 ABG O2 Saturation 99.0 % (95.0-99.0) 07/01/22 05:00 ABG O2 Content 16.4 (0.0-44) 07/01/22 05:00 ABG Base Excess -3.8 mmol/L (-2.0-3.0) L 07/01/22 05:00 ABG Hemoglobin 11.7 gm/dl (12.0-16.0) L 07/01/22 05:00 ABG Carboxyhemoglobin 1.2 % (0.0-5.0) 07/01/22 05:00 ABG Methemoglobin 0.5 % (0.0-1.5) 07/01/22 05:00 Oxyhemoglobin 97.4 % (95.0-99.0) 07/01/22 05:00 FiO2 35 % 07/01/22 05:00 Sodium 142 mmol/L (137-145) 07/02/22 04:58 Potassium 4.0 mmol/L (3.6-5.0) D 07/02/22 04:58 Chloride 106.1 mmol/L (98-107) 07/02/22 04:58 Carbon Dioxide 25 mmol/L (22-30) 07/02/22 04:58 Anion Gap 15 mmol/L 07/02/22 04:58 BUN 20 mg/dL (7-17) H 07/02/22 04:58 Creatinine 0.7 mg/dL (0.6-1.2) 07/02/22 04:58 Estimated GFR > 60 ml/min 07/02/22 04:58 BUN/Creatinine Ratio 29 % 07/02/22 04:58 Glucose 122 mg/dL (65-100) H 07/02/22 04:58 POC Glucose 95 mg/dL (70-105) 07/02/22 12:28 Lactic Acid 1.70 mmol/L (0.7-2.0) 07/02/22 04:58 Calcium 8.6 mg/dL (8.4-10.2) 07/02/22 04:58 Total Bilirubin 0.40 mg/dL (0.1-1.2) 06/30/22 10:01 AST 25 units/L (5-40) 06/30/22 10:01 ALT 11 units/L (7-56) 06/30/22 10:01 Alkaline Phosphatase 85 units/L (35-129) 06/30/22 10:01 Troponin T < 0.010 ng/mL (0.00-0.029) 06/30/22 10:01 Total Protein 7.0 g/dL (6.3-8.2) 06/30/22 10:01 Albumin 4.2 g/dL (3.9-5) 06/30/22 10:01 Albumin/Globulin Ratio 1.5 % 06/30/22 10:01 Prealbumin 0.132 g/L (0.200-0.400) L 07/01/22 15:09 Vitamin B12 882.1 pg/mL (211-911) 07/01/22 15:09 Folate 9.64 ng/mL (7.3-26.0) 07/01/22 15:09 TSH 1.000 mlU/mL (0.270-4.200) 07/01/22 15:09 Urine Color Straw (Yellow) 07/01/22 08:26 Urine Turbidity Clear (Clear) 07/01/22 08:26 Specific [place] (Man) 1.015 (1.003-1.030) 07/01/22 08:26 Ur Protein (Man) 1+ mg/dL (Negative) 07/01/22 08:26 Ur Ketones (Man) 3+ (Negative) 07/01/22 08:26 Ur Nitrite (Man) Negative (Negative) 07/01/22 08:26 Urine Bilirubin (Man) Negative (Negative) 07/01/22 08:26 Leukocyte Esterase (Man) Trace (Negative) 07/01/22 08:26 Urine WBC (Auto) 42.0 /HPF (0.0-6.0) H 07/01/22 08:26 Urine RBC (Auto) 89.0 /HPF (0.0-6.0) 07/01/22 08:26 U Epithel Cells (Auto) 6.0 /HPF (0-13.0) 07/01/22 08:26 Urine Bacteria (Auto) 1+ /HPF (Negative) 07/01/22 08:26 Urine RBC (Manual) 3+ (Negative) 07/01/22 08:26 Amorphous Crystals Few 07/01/22 08:26 Hyaline Casts 1 /LPF 07/01/22 08:26 Urine Mucus Few /HPF 07/01/22 08:26 Urine Creatinine 49.9 mg/dL (0.1-20.0) H 07/01/22 08:26 Urine Sodium 139 mmol/L 07/01/22 08:26 Syphilis IgG/IgM Ab Nonreactive (NonReactive) 07/01/22 15:09 Blood Type B POSITIVE 06/30/22 23:26 Antibody Screen Negative 06/30/22 23:26 Microbiology: Microbiology 06/30/22 23:26 Peripheral/Venous Blood Culture - Preliminary NO GROWTH AFTER 24 HOURS 06/30/22 23:26 Peripheral/Venous Blood Culture - Preliminary NO GROWTH AFTER 24 HOURS Munoz/IV: Voiding Method Indwelling Catheter Active Medications - Current Medications Current Medications: Generic Name Dose Route Start Last Admin Trade Name Freq PRN Reason Stop Dose Admin Acetaminophen 650 mg 06/30/22 12:58 Acetaminophen 325 Mg Tab PO Q6H PRN Pain MILD(1-3)/Fever >100.5/MCGRATH Albuterol 2.5 mg 06/30/22 12:58 Albuterol 2.5 Mg/3 Ml Nebu IH Q3HRT PRN Shortness Of Breath Amlodipine Besylate 10 mg 07/01/22 10:00 07/02/22 12:31 Amlodipine 10 Mg Tab FEEDTUBE 10 mg QDAY JAVIER Administration Docusate Sodium 100 mg 07/01/22 10:00 07/02/22 12:30 Docusate Sodium 100 Mg/10 Ml Oral Liqd FEEDTUBE 100 mg BID JAVIER Administration Ferrous Sulfate 300 mg 07/01/22 10:00 07/02/22 12:30 Ferrous Sulfate 300 Mg (60mg Elemental Iron) / 5 Ml Oral Liqd PO 300 mg QDAY JAVIER Administration Heparin Sodium (Porcine) 5,000 unit 06/30/22 22:00 07/02/22 12:30 Heparin 5,000 Unit/1 Ml Vial SUB-Q 5,000 unit Q12HR JAVIER Administration Hydralazine HCl 10 mg 06/30/22 13:03 07/02/22 12:40 Hydralazine 20 Mg/1 Ml Inj IV 10 mg Q8HR PRN Administration Hypertension Levetiracetam 500 mg 07/01/22 10:00 07/02/22 12:31 Levetiracetam 500 Mg/5 Ml Oral Liqd FEEDTUBE 500 mg BID JAVIER Administration Mirtazapine 15 mg 07/01/22 22:00 07/01/22 21:11 Mirtazapine 15 Mg Tab FEEDTUBE Not Given QHS JAVIER Oxycodone/Acetaminophen 1 tab 06/30/22 12:58 Oxycodone /Acetaminophen 5-325mg Tab PO Q6H PRN Pain, Moderate (4-6) Senna 8.6 mg 07/01/22 10:00 07/02/22 12:31 Sennosides 8.6 Mg Tab FEEDTUBE 8.6 mg QDAY JAVIER Administration Sodium Chloride 10 ml 06/30/22 22:00 07/02/22 12:31 Sodium Chloride 0.9% 10 Ml Flush Syringe IV 10 ml BID JAVIER Administration Sodium Chloride 10 ml 06/30/22 12:58 Sodium Chloride 0.9% 10 Ml Flush Syringe IV PRN PRN LINE FLUSH Nutrition/Malnutrition Assess - Dietary Evaluation Nutrition/Malnutrition Findings: Nutrition Notes Start: 07/01/22 10:44 Freq: Status: Active Protocol: Document 07/01/22 10:44 CM (Rec: 07/01/22 10:52 CM [id number]) Co-Sign 07/01/22 10:44 WW Nutrition Notes 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 Weight Status Underweight Subjective/Other Information RD consult for malnutrition screening tool score 2 (Unsure wt loss/ no decreased appetite). Pt currently NPO, on mechanical ventilation in critical care unit. NG tube positioned in stomach per KUB. Abdomen flat, soft, with BS+ per physical assessment. Awaiting rounds for decision on enteral nutrition / no GI symptoms / bowel regimen initiated per RN. GI Symptoms None Difficulty In Swallowing Food Allergy No Skin Integrity/Comment WNL Current % PO Other Is patient on ventilator? Yes Nutrition Intervention Goal #1 Pt to advance to diet or enteral nutrition within 24-72 hours. Follow-Up By: 07/03/22 Additional Comments Monitor for diet advancement and BM.
[2022-07-02] MEDS: MIRTAZAPINE 15 MG TAB FEEDTUBE SCH (21:54)
--- NOTE | 2022-07-03 07:43 | Progress Note ---
Assessment and Plan Assessment and plan: History Interval history: This is is an 87-year-old female who is resident of a [facility] with vascular dementia, cerebral atherosclerosis, DM, CHF, HTN, seizure disorder, CVA, debility, malnutrition, DVT (not currently on therapeutic anticoagulation) who presented to the emergency department on 06/30 via EMS after being notified when she was found to have increased confusion and weakness at the [facility]. Upon arrival the patient was found to be in distress and transferred to [facility]. In the emergency department patient had a pulse ox of 86% on room air, sepsis secondary to UTI, toxic metabolic encephalopathy, metabolic acidosis, hyponatremia as well as hypertensive urgency at 203/103. Teleneurology did assess the patient and recommended EEG. Patient was intubated in the emergency department. Patient was admitted to the hospitalist service to the ICU with consults to [facility]. Hospital course to date: 07/01: Neurology consulted, patient placed on CPAP and extubated), LR bolus for hypotension, EEG ordered and neurology consulted. Lisinopril discontinued. 07/02: DHT placed today, ST evaluation completed today which patient failed. Patient will be transferred to the floor. PT/OT consulted. 07/03: Therapy recs noted. Given ST evaluation, patient may require PEG. I will reach out to discuss details of assessment today and if needed consult GI. Dispo is [facility]. 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 -CTA neck showed no hemodynamically significant stenosis appreciated in the CTA of the neck, small pulmonary nodules and pleural thickening identified -MRI brain shows no acute acute abnormality, volume loss and chronic white matter changes -EEG pending -PT/OT consulted Cardiac: Accelerated Hypertension (resolved), h/o HTN -Admitted with BP 203/103 -Blood pressure monitoring per protocol -Per neurology: Permissive hypertension until MRI -Amlodipine -2016 echocardiogram shows EF of 60 to 65% Respiratory: Acute hypoxic respiratory failure, h/o DVT -CCM consulted, appreciate recommendations -Intubated on 06/30 with 7.5 OETT at 22 cm at the lips and extubated on 07/01 -Currently on nasal cannula -SPO2 monitor per protocol -Pulmonary hygiene -Supplemental oxygen as needed GI: h/o malnutrition -According to family patient did have a diet at [facility] -Failed bedside swallow evaluation due to refusing to participate -ST evaluation completed which he failed -DHT -Nutrition consult for tube feeding -PPI -BR: senokot : Acute kidney injury secondary to vasomotor nephropathy (resolved), hy perkalemia (resolved) -Monitor intake and output -Renally dose medications -Avoid nephrotoxic medications -FENa 0.73% -Trend BMP ID: SIRS POA, ruled out sepsis, Lactic Acidosis (resolved) -Admitted with tachycardia, ruthie, lactic acidosis, leukocytosis -f/u blood culture -Monitor WBC and temperature curve Endo: h/o DM -Avoid hypoglycemia -SSI -Accu-Cheks q. 6hr Heme: Leukocytosis (improving) -Trend CBC -Transfuse hemoglobin less than 7 -SCDs to BLE while in bed #Advance care planning Disease education conducted, care plan discussed, diagnoses discussed, prognosis discussed, patient is full code. Pt Son acknowledges understanding and agree with care plan, +30 minutes. History Interval history: Resting comfortably. nonverbal at baseline Hospitalist Physical - Physical exam Narrative exam: General appearance: Present: no acute distress, cachectic - EENT Eyes: Present: PERRL, EOM intact ENT: dentition normal - Neck Neck: Present: normal ROM - Respiratory Respiratory effort: normal Respiratory: bilateral: CTA - Cardiovascular Rhythm: regular Heart Sounds: Present: S1 & S2. Absent: systolic murmur, diastolic murmur - Extremities Extremities: no ischemia, pulses intact, pulses symmetrical, No edema, normal temperature, normal color Peripheral Pulses: within normal limits - Abdominal General gastrointestinal: soft, non-tender, non-distended, normal bowel sounds - Integumentary Integumentary: Present: warm, dry - Psychiatric Psychiatric: cooperative - Neurologic Neurologic: no focal deficits - Allied Health Allied health notes reviewed: nursing, PT, ST, OT, RT, social work - Constitutional Vitals: Temp Pulse Resp BP Pulse Ox 99.4 F 101 H 16 140/77 97 07/03/22 04:51 07/03/22 04:51 07/03/22 04:51 07/03/22 04:51 07/03/22 04:51 General appearance: Present: no acute distress, cachectic HEART Score - HEART Score Troponin: Troponin T < 0.010 ng/mL (0.00-0.029) 06/30/22 10:01 Results - Labs CBC & Chem 7: 07/02/22 04:58 07/02/22 04:58 Labs: Laboratory Last Values WBC 13.9 K/mm3 (4.5-11.0) H 07/02/22 04:58 RBC 3.99 M/mm3 (3.65-5.03) 07/02/22 04:58 Hgb 11.2 gm/dl (10.1-14.3) 07/02/22 04:58 Hct 35.6 % (30.3-42.9) 07/02/22 04:58 MCV 89 fl (79-97) 07/02/22 04:58 MCH 28 pg (28-32) 07/02/22 04:58 MCHC 32 % (30-34) 07/02/22 04:58 RDW 13.1 % (13.2-15.2) L 07/02/22 04:58 Plt Count 271 K/mm3 (140-440) 07/02/22 04:58 Lymph % (Auto) 12.9 % (13.4-35.0) L 07/01/22 04:14 [place] % (Auto) 8.2 % (0.0-7.3) H 07/01/22 04:14 Eos % (Auto) 0.0 % (0.0-4.3) 07/01/22 04:14 Baso % (Auto) 0.2 % (0.0-1.8) 07/01/22 04:14 Lymph # (Auto) 1.7 K/mm3 (1.2-5.4) 07/01/22 04:14 [place] # (Auto) 1.1 K/mm3 (0.0-0.8) H 07/01/22 04:14 Eos # (Auto) 0.0 K/mm3 (0.0-0.4) 07/01/22 04:14 Baso # (Auto) 0.0 K/mm3 (0.0-0.1) 07/01/22 04:14 Seg Neutrophils % 78.7 % (40.0-70.0) H 07/01/22 04:14 Seg Neutrophils # 10.3 K/mm3 (1.8-7.7) H 07/01/22 04:14 ABG pH 7.394 pH Units (7.350-7.450) 07/01/22 05:00 ABG pCO2 34.0 mm Hg 07/01/22 05:00 ABG pO2 160.8 mm Hg (80.0-90.0) H 07/01/22 05:00 ABG HCO3 20.3 mmol/L (20.0-26.0) 07/01/22 05:00 ABG O2 Saturation 99.0 % (95.0-99.0) 07/01/22 05:00 ABG O2 Content 16.4 (0.0-44) 07/01/22 05:00 ABG Base Excess -3.8 mmol/L (-2.0-3.0) L 07/01/22 05:00 ABG Hemoglobin 11.7 gm/dl (12.0-16.0) L 07/01/22 05:00 ABG Carboxyhemoglobin 1.2 % (0.0-5.0) 07/01/22 05:00 ABG Methemoglobin 0.5 % (0.0-1.5) 07/01/22 05:00 Oxyhemoglobin 97.4 % (95.0-99.0) 07/01/22 05:00 FiO2 35 % 07/01/22 05:00 Sodium 142 mmol/L (137-145) 07/02/22 04:58 Potassium 4.0 mmol/L (3.6-5.0) D 07/02/22 04:58 Chloride 106.1 mmol/L (98-107) 07/02/22 04:58 Carbon Dioxide 25 mmol/L (22-30) 07/02/22 04:58 Anion Gap 15 mmol/L 07/02/22 04:58 BUN 20 mg/dL (7-17) H 07/02/22 04:58 Creatinine 0.7 mg/dL (0.6-1.2) 07/02/22 04:58 Estimated GFR > 60 ml/min 07/02/22 04:58 BUN/Creatinine Ratio 29 % 07/02/22 04:58 Glucose 122 mg/dL (65-100) H 07/02/22 04:58 POC Glucose 95 mg/dL (70-105) 07/02/22 12:28 Lactic Acid 1.70 mmol/L (0.7-2.0) 07/02/22 04:58 Calcium 8.6 mg/dL (8.4-10.2) 07/02/22 04:58 Total Bilirubin 0.40 mg/dL (0.1-1.2) 06/30/22 10:01 AST 25 units/L (5-40) 06/30/22 10:01 ALT 11 units/L (7-56) 06/30/22 10:01 Alkaline Phosphatase 85 units/L (35-129) 06/30/22 10:01 Troponin T < 0.010 ng/mL (0.00-0.029) 06/30/22 10:01 Total Protein 7.0 g/dL (6.3-8.2) 06/30/22 10:01 Albumin 4.2 g/dL (3.9-5) 06/30/22 10:01 Albumin/Globulin Ratio 1.5 % 06/30/22 10:01 Prealbumin 0.132 g/L (0.200-0.400) L 07/01/22 15:09 Vitamin B12 882.1 pg/mL (211-911) 07/01/22 15:09 Folate 9.64 ng/mL (7.3-26.0) 07/01/22 15:09 TSH 1.000 mlU/mL (0.270-4.200) 07/01/22 15:09 Urine Color Straw (Yellow) 07/01/22 08:26 Urine Turbidity Clear (Clear) 07/01/22 08:26 Specific [place] (Man) 1.015 (1.003-1.030) 07/01/22 08:26 Ur Protein (Man) 1+ mg/dL (Negative) 07/01/22 08:26 Ur Ketones (Man) 3+ (Negative) 07/01/22 08:26 Ur Nitrite (Man) Negative (Negative) 07/01/22 08:26 Urine Bilirubin (Man) Negative (Negative) 07/01/22 08:26 Leukocyte Esterase (Man) Trace (Negative) 07/01/22 08:26 Urine WBC (Auto) 42.0 /HPF (0.0-6.0) H 07/01/22 08:26 Urine RBC (Auto) 89.0 /HPF (0.0-6.0) 07/01/22 08:26 U Epithel Cells (Auto) 6.0 /HPF (0-13.0) 07/01/22 08:26 Urine Bacteria (Auto) 1+ /HPF (Negative) 07/01/22 08:26 Urine RBC (Manual) 3+ (Negative) 07/01/22 08:26 Amorphous Crystals Few 07/01/22 08:26 Hyaline Casts 1 /LPF 07/01/22 08:26 Urine Mucus Few /HPF 07/01/22 08:26 Urine Creatinine 49.9 mg/dL (0.1-20.0) H 07/01/22 08:26 Urine Sodium 139 mmol/L 07/01/22 08:26 Syphilis IgG/IgM Ab Nonreactive (NonReactive) 07/01/22 15:09 Blood Type B POSITIVE 06/30/22 23:26 Antibody Screen Negative 06/30/22 23:26 Microbiology: Microbiology 06/30/22 23:26 Peripheral/Venous Blood Culture - Preliminary NO GROWTH AFTER 48 HOURS 06/30/22 23:26 Peripheral/Venous Blood Culture - Preliminary NO GROWTH AFTER 48 HOURS Munoz/IV: Voiding Method Indwelling Catheter Active Medications - Current Medications Current Medications: Generic Name Dose Route Start Last Admin Trade Name Freq PRN Reason Stop Dose Admin Acetaminophen 650 mg 06/30/22 12:58 Acetaminophen 325 Mg Tab PO Q6H PRN Pain MILD(1-3)/Fever >100.5/MCGRATH Albuterol 2.5 mg 06/30/22 12:58 Albuterol 2.5 Mg/3 Ml Nebu IH Q3HRT PRN Shortness Of Breath Amlodipine Besylate 10 mg 07/01/22 10:00 07/02/22 12:31 Amlodipine 10 Mg Tab FEEDTUBE 10 mg QDAY JAVIER Administration Docusate Sodium 100 mg 07/01/22 10:00 07/02/22 21:53 Docusate Sodium 100 Mg/10 Ml Oral Liqd FEEDTUBE 100 mg BID JAVIER Administration Ferrous Sulfate 300 mg 07/01/22 10:00 07/02/22 12:30 Ferrous Sulfate 300 Mg (60mg Elemental Iron) / 5 Ml Oral Liqd PO 300 mg QDAY JAVIER Administration Heparin Sodium (Porcine) 5,000 unit 06/30/22 22:00 07/02/22 21:54 Heparin 5,000 Unit/1 Ml Vial SUB-Q 5,000 unit Q12HR JAVIER Administration Hydralazine HCl 10 mg 06/30/22 13:03 07/02/22 12:40 Hydralazine 20 Mg/1 Ml Inj IV 10 mg Q8HR PRN Administration Hypertension Levetiracetam 500 mg 07/01/22 10:00 07/02/22 21:53 Levetiracetam 500 Mg/5 Ml Oral Liqd FEEDTUBE 500 mg BID JAVIER Administration Mirtazapine 15 mg 07/01/22 22:00 07/02/22 21:54 Mirtazapine 15 Mg Tab FEEDTUBE 15 mg QHS JAVIER Administration Oxycodone/Acetaminophen 1 tab 06/30/22 12:58 Oxycodone /Acetaminophen 5-325mg Tab PO Q6H PRN Pain, Moderate (4-6) Senna 8.6 mg 07/01/22 10:00 07/02/22 12:31 Sennosides 8.6 Mg Tab FEEDTUBE 8.6 mg QDAY JAVIER Administration Sodium Chloride 10 ml 06/30/22 22:00 07/02/22 22:30 Sodium Chloride 0.9% 10 Ml Flush Syringe IV 10 ml BID JAVIER Administration Sodium Chloride 10 ml 06/30/22 12:58 Sodium Chloride 0.9% 10 Ml Flush Syringe IV PRN PRN LINE FLUSH Nutrition/Malnutrition Assess - Dietary Evaluation Nutrition/Malnutrition Findings: Nutrition Notes Start: 07/01/22 10:44 Freq: Status: Active Protocol: Document 07/01/22 10:44 CM (Rec: 07/01/22 10:52 CM [id number]) Co-Sign 07/01/22 10:44 WW Nutrition Notes 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 Weight Status Underweight Subjective/Other Information RD consult for malnutrition screening tool score 2 (Unsure wt loss/ no decreased appetite). Pt currently NPO, on mechanical ventilation in critical care unit. NG tube positioned in stomach per KUB. Abdomen flat, soft, with BS+ per physical assessment. Awaiting rounds for decision on enteral nutrition / no GI symptoms / bowel regimen initiated per RN. GI Symptoms None Difficulty In Swallowing Food Allergy No Skin Integrity/Comment WNL Current % PO Other Is patient on ventilator? Yes Nutrition Intervention Goal #1 Pt to advance to diet or enteral nutrition within 24-72 hours. Follow-Up By: 07/03/22 Additional Comments Monitor for diet advancement and BM.
--- NOTE | 2022-07-03 09:18 | Progress Note ---
Assessment and Plan 87 female with altered mental status. 07/03/22: stable pulm status. Will sign off. 07/02/22: Transfer to floor. Will sign off. 1. Extubate 2. Swallow eval 3. PT/OT consult. CCT 31 minutes. Subjective Date of service: 07/03/22 Interval history: No acute events. Successful transfer to floor. On Room air this am. Objective Vital Signs - 12hr 07/02/22 07/03/22 21:35 04:51 Temperature 99.7 F H 99.4 F Pulse Rate 108 H 101 H Respiratory 16 16 Rate Blood Pressure 147/71 140/77 O2 Sat by Pulse 94 97 Oximetry CBC and BMP: 07/02/22 04:58 07/02/22 04:58 ABG, PT/INR, D-dimer: ABG ABG pH 7.394 pH Units (7.350-7.450) 07/01/22 05:00 ABG pCO2 34.0 mm Hg 07/01/22 05:00 ABG pO2 160.8 mm Hg (80.0-90.0) H 07/01/22 05:00 ABG O2 Saturation 99.0 % (95.0-99.0) 07/01/22 05:00 Abnormal lab findings: Abnormal Labs 06/30/22 06/30/22 06/30/22 10:01 10:01 10:55 WBC 17.9 H RDW 13.1 L Lymph % (Auto) 6.5 L [place] % (Auto) [place] # (Auto) 0.9 H Seg Neutrophils % 88.5 H Seg Neutrophils # 15.8 H ABG pH 7.282 L ABG pO2 230.5 H ABG HCO3 13.9 L ABG O2 Saturation 99.3 H ABG Base Excess -11.5 L ABG Hemoglobin Sodium 135 L Potassium Chloride 91.5 L Carbon Dioxide 12 L BUN 27 H Creatinine Glucose 196 H POC Glucose Lactic Acid Prealbumin Urine WBC (Auto) Urine Creatinine 06/30/22 06/30/22 07/01/22 21:50 23:26 04:14 WBC 13.1 H RDW 12.9 L Lymph % (Auto) 12.9 L [place] % (Auto) 8.2 H [place] # (Auto) 1.1 H Seg Neutrophils % 78.7 H Seg Neutrophils # 10.3 H ABG pH ABG pO2 ABG HCO3 ABG O2 Saturation ABG Base Excess ABG Hemoglobin Sodium Potassium Chloride Carbon Dioxide BUN Creatinine Glucose POC Glucose 226 H Lactic Acid 3.50 H* Prealbumin Urine WBC (Auto) Urine Creatinine 07/01/22 07/01/22 07/01/22 04:14 04:14 05:00 WBC RDW Lymph % (Auto) [place] % (Auto) [place] # (Auto) Seg Neutrophils % Seg Neutrophils # ABG pH ABG pO2 160.8 H ABG HCO3 ABG O2 Saturation ABG Base Excess -3.8 L ABG Hemoglobin 11.7 L Sodium Potassium 5.2 H D Chloride Carbon Dioxide BUN 36 H Creatinine 1.3 H Glucose 148 H POC Glucose Lactic Acid 2.90 H* Prealbumin Urine WBC (Auto) Urine Creatinine 07/01/22 07/01/22 07/01/22 06:07 08:26 08:26 WBC RDW Lymph % (Auto) [place] % (Auto) [place] # (Auto) Seg Neutrophils % Seg Neutrophils # ABG pH ABG pO2 ABG HCO3 ABG O2 Saturation ABG Base Excess ABG Hemoglobin Sodium Potassium Chloride Carbon Dioxide BUN Creatinine Glucose POC Glucose 174 H Lactic Acid Prealbumin Urine WBC (Auto) 42.0 H Urine Creatinine 49.9 H 07/01/22 07/01/22 07/01/22 15:09 16:31 23:43 WBC RDW Lymph % (Auto) [place] % (Auto) [place] # (Auto) Seg Neutrophils % Seg Neutrophils # ABG pH ABG pO2 ABG HCO3 ABG O2 Saturation ABG Base Excess ABG Hemoglobin Sodium Potassium Chloride Carbon Dioxide BUN Creatinine Glucose POC Glucose 130 H 130 H Lactic Acid Prealbumin 0.132 L Urine WBC (Auto) Urine Creatinine 07/02/22 07/02/22 07/02/22 04:58 04:58 05:28 WBC 13.9 H RDW 13.1 L Lymph % (Auto) [place] % (Auto) [place] # (Auto) Seg Neutrophils % Seg Neutrophils # ABG pH ABG pO2 ABG HCO3 ABG O2 Saturation ABG Base Excess ABG Hemoglobin Sodium Potassium Chloride Carbon Dioxide BUN 20 H Creatinine Glucose 122 H POC Glucose 119 H Lactic Acid Prealbumin Urine WBC (Auto) Urine Creatinine
[2022-07-03] MEDS: DOCUSATE SODIUM 100 MG/10 ML ORAL LIQD FEEDTUBE SCH ×2 (12:20→21:17)
[2022-07-03] MEDS: amLODIPine 10 MG TAB FEEDTUBE SCH (12:20)
[2022-07-03] MEDS: levETIRAcetam 500 MG/5 ML ORAL LIQD FEEDTUBE SCH ×2 (12:20→21:17)
[2022-07-03] MEDS: SENNOSIDES 8.6 MG TAB FEEDTUBE SCH (12:20)
[2022-07-03] MEDS: HEPARIN 5,000 UNIT/1 ML VIAL SUB-Q SCH ×2 (12:21→21:17)
[2022-07-03] MEDS: MIRTAZAPINE 15 MG TAB FEEDTUBE SCH (21:17)
--- NOTE | 2022-07-04 10:21 | Gastroenterology Consultation ---
History of Present Illness - Reason for Consult Consult date: 07/04/22 - History of Present Illness Ms. Johnston is an 87 y/o F who GI has been consulted on for possible PEG placement. Prior to admission, pt was eating a pureed diet. During admission, pt was seen by [employer] and failed swallow test. Currently being tube fed with NG. On exam, it appears that pt has previously had a PEG. Pt in nonverbal and family contact. Magdy ([phone]), pt's granddaughter, was contacted regarding possible PEG placement. After discussion with her brother they have decided to proceed with PEG placement. Past History Past Medical History: diabetes, DVT, heart failure, hypertension, seizures, stroke, other (See HPI) Past Surgical History: Other (Esophageal surgery) Social history: . denies: smoking, alcohol abuse Family history: diabetes, hypertension Medications and Allergies Allergies Allergy/AdvReac Type Severity Reaction Status Date / Time seafood Allergy Anaphylaxis Uncoded 06/30/22 10:05 Home Medications Medication Instructions Recorded Confirmed Last Taken Type levETIRAcetam [Keppra TAB] 500 mg PO BID #60 tablet 03/12/17 05/04/17 Unknown Rx Acetaminophen [Acetaminophen TAB] 650 mg PO Q6HR PRN 05/04/17 05/04/17 Unknown History Acetaminophen [Tylenol Arthritis] 650 mg PO Q12H PRN 05/04/17 05/04/17 Unknown History Benazepril HCl 25 mg PO BID 05/04/17 05/04/17 Unknown History Docusate Sodium [Colace CAP] 100 mg PO BID 05/04/17 05/04/17 Unknown History Ferrous Sulfate [Feosol 325 MG tab] 325 mg PO QDAY 05/04/17 05/04/17 Unknown History Mag Hydrox/Aluminum Hyd/Simeth 30 ml PO Q6H PRN 05/04/17 05/04/17 Unknown History [Maalox Advanced Suspension] Mirtazapine [Remeron 15mg TAB] 15 mg PO QHS 05/04/17 05/04/17 Unknown History Montelukast [Singulair] 10 mg PO QPM 05/04/17 05/04/17 Unknown History Sennosides Tab [Senokot] 2 tab PO QDAY 05/04/17 05/04/17 Unknown History glucagon HCL [Glucagon HCl] 1 mg IM Q15MIN PRN 05/04/17 05/04/17 Unknown History amLODIPine 10 mg PO QDAY #30 tablet 05/07/17 Unknown Rx Active Meds: Active Medications Acetaminophen (Acetaminophen 325 Mg Tab) 650 mg PO Q6H PRN PRN Reason: Pain MILD(1-3)/Fever >100.5/MCGRATH Albuterol (Albuterol 2.5 Mg/3 Ml Nebu) 2.5 mg IH Q3HRT PRN PRN Reason: Shortness Of Breath Amlodipine Besylate (Amlodipine 10 Mg Tab) 10 mg FEEDTUBE QDAY [facility] Last Admin: 07/03/22 12:20 Dose: 10 mg Docusate Sodium (Docusate Sodium 100 Mg/10 Ml Oral Liqd) 100 mg FEEDTUBE BID [facility] Last Admin: 07/03/22 21:17 Dose: 100 mg Ferrous Sulfate (Ferrous Sulfate 300 Mg (60mg Elemental Iron) / 5 Ml Oral Liqd) 300 mg PO QDAY [facility] Last Admin: 07/02/22 12:30 Dose: 300 mg Heparin Sodium (Porcine) (Heparin 5,000 Unit/1 Ml Vial) 5,000 unit SUB-Q Q12HR [facility] Last Admin: 07/03/22 21:17 Dose: 5,000 unit Hydralazine HCl (Hydralazine 20 Mg/1 Ml Inj) 10 mg IV Q8HR PRN PRN Reason: Hypertension Last Admin: 07/02/22 12:40 Dose: 10 mg Levetiracetam (Levetiracetam 500 Mg/5 Ml Oral Liqd) 500 mg FEEDTUBE BID [facility] Last Admin: 07/03/22 21:17 Dose: 500 mg Mirtazapine (Mirtazapine 15 Mg Tab) 15 mg FEEDTUBE QHS [facility] Last Admin: 07/03/22 21:17 Dose: 15 mg Oxycodone/Acetaminophen (Oxycodone /Acetaminophen 5-325mg Tab) 1 tab PO Q6H PRN PRN Reason: Pain, Moderate (4-6) Senna (Sennosides 8.6 Mg Tab) 8.6 mg FEEDTUBE QDAY [facility] Last Admin: 07/03/22 12:20 Dose: 8.6 mg Sodium Chloride (Sodium Chloride 0.9% 10 Ml Flush Syringe) 10 ml IV BID [facility] Last Admin: 07/03/22 21:19 Dose: 10 ml Sodium Chloride (Sodium Chloride 0.9% 10 Ml Flush Syringe) 10 ml IV PRN PRN PRN Reason: LINE FLUSH Review of Systems - Review of Systems ROS unobtainable: due to mental status Exam - Constitutional Vital Signs: Temp Pulse Resp BP Pulse Ox 98.6 F 93 H 18 151/78 100 07/04/22 04:07 07/04/22 04:07 07/04/22 04:07 07/04/22 04:07 07/04/22 04:07 - Gastrointestinal General gastrointestinal: Present: soft, non-tender, non-distended (Scar from previous PEG) - Labs CBC & Chem 7: 07/02/22 04:58 07/02/22 04:58 Lab Results: Laboratory Results - last 24 hr 07/03/22 07/03/22 07/03/22 07:32 07:41 11:17 POC Glucose 102 119 H 109 H 07/03/22 16:54 POC Glucose 102 Assessment and Plan 1. PEG placement - hold tube feeds (been held since 1000 today) - will plan for EGD with PEG this PM - family is okay will procedure, call family member listed as next of kin for consent, if he does not answer call Leslie ([phone])
[2022-07-04] MEDS: levETIRAcetam 500 MG/5 ML ORAL LIQD FEEDTUBE SCH ×2 (10:27→22:37)
[2022-07-04] MEDS: DOCUSATE SODIUM 100 MG/10 ML ORAL LIQD FEEDTUBE SCH ×2 (10:27→22:37)
[2022-07-04] MEDS: HEPARIN 5,000 UNIT/1 ML VIAL SUB-Q SCH ×2 (10:27→22:37)
[2022-07-04] MEDS: FERROUS SULFATE 300 MG (60MG Elemental Iron) / 5 mL ORAL LIQD PO SCH (10:28)
[2022-07-04] MEDS: amLODIPine 10 MG TAB FEEDTUBE SCH (10:28)
[2022-07-04] MEDS: SENNOSIDES 8.6 MG TAB FEEDTUBE SCH (10:28)
--- NOTE | 2022-07-04 11:28 | Progress Note ---
Assessment and Plan Assessment and plan: History Interval history: This is is an 87-year-old female who is resident of a halfway with vascular dementia, cerebral atherosclerosis, DM, CHF, HTN, seizure disorder, CVA, debility, malnutrition, DVT (not currently on therapeutic anticoagulation) who presented to the emergency department on 06/30 via EMS after being notified when she was found to have increased confusion and weakness at the halfway. Upon arrival the patient was found to be in distress and transferred to [facility]. In the emergency department patient had a pulse ox of 86% on room air, sepsis secondary to UTI, toxic metabolic encephalopathy, metabolic acidosis, hyponatremia as well as hypertensive urgency at 203/103. Teleneurology did assess the patient and recommended EEG. Patient was intubated in the emergency department. Patient was admitted to the hospitalist service to the ICU with consults to [facility]. Hospital course to date: 07/01: Neurology consulted, patient placed on CPAP and extubated), LR bolus for hypotension, EEG ordered and neurology consulted. Lisinopril discontinued. 07/02: DHT placed today, ST evaluation completed today which patient failed. Patient will be transferred to the floor. PT/OT consulted. 07/03: Therapy recs noted. Given ST evaluation, patient may require PEG. I will reach out to discuss details of assessment today and if needed consult GI. Dispo is [facility]. 07/04: Patient will need PEG. GI consulted for PEG placement, D/w STRUCTURAL ANALYSIS ENGINEER this AM. Discussed with family at bedside who are agreeable to procedure. 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 -CTA neck showed no hemodynamically significant stenosis appreciated in the CTA of the neck, small pulmonary nodules and pleural thickening identified -MRI brain shows no acute acute abnormality, volume loss and chronic white matter changes -EEG pending -PT/OT consulted Cardiac: Accelerated Hypertension (resolved), h/o HTN -Admitted with BP 203/103 -Blood pressure monitoring per protocol -Per neurology: Permissive hypertension until MRI -Amlodipine -2016 echocardiogram shows EF of 60 to 65% Respiratory: Acute hypoxic respiratory failure, h/o DVT -CCM consulted, appreciate recommendations -Intubated on 06/30 with 7.5 OETT at 22 cm at the lips and extubated on 07/01 -Currently on nasal cannula -SPO2 monitor per protocol -Pulmonary hygiene -Supplemental oxygen as needed GI: h/o malnutrition -According to family patient did have a diet at halfway -Failed bedside swallow evaluation due to refusing to participate -ST evaluation completed which he failed -DHT -Nutrition consult for tube feeding -PPI -BR: senokot : Acute kidney injury secondary to vasomotor nephropathy (resolved), hyperkalemia (resolved) -Monitor intake and output -Renally dose medications -Avoid nephrotoxic medications -FENa 0.73% -Trend BMP ID: SIRS POA, ruled out sepsis, Lactic Acidosis (resolved) -Admitted with tachycardia, ruthie, lactic acidosis, leukocytosis -f/u blood culture -Monitor WBC and temperature curve Endo: h/o DM -Avoid hypoglycemia -SSI -Accu-Cheks q. 6hr Heme: Leukocytosis (improving) -Trend CBC -Transfuse hemoglobin less than 7 -SCDs to BLE while in bed #Advance care planning Disease education conducted, care plan discussed, diagnoses discussed, prognosis discussed, patient is full code. Pt family acknowledges understanding and agree with care plan, +30 minutes. History Interval history: No acute issues overnight. Resting comfortably on my encounter. Hospitalist Physical - Physical exam Narrative exam: General appearance: Present: no acute distress, cachectic - EENT Eyes: Present: PERRL, EOM intact ENT: dentition normal - Neck Neck: Present: normal ROM - Respiratory Respiratory effort: normal Respiratory: bilateral: CTA - Cardiovascular Rhythm: regular Heart Sounds: Present: S1 & S2. Absent: systolic murmur, diastolic murmur - Extremities Extremities: no ischemia, pulses intact, pulses symmetrical, No edema, normal temperature, normal color Peripheral Pulses: within normal limits - Abdominal General gastrointestinal: soft, non-tender, non-distended, normal bowel sounds - Integumentary Integumentary: Present: warm, dry - Psychiatric Psychiatric: cooperative - Neurologic Neurologic: no focal deficits - Allied Health Allied health notes reviewed: nursing, PT, ST, OT, RT, social work - Constitutional Vitals: Temp Pulse Resp BP Pulse Ox 98.6 F 93 H 18 151/78 100 07/04/22 04:07 07/04/22 04:07 07/04/22 04:07 07/04/22 04:07 07/04/22 04:07 General appearance: Present: no acute distress, cachectic HEART Score - HEART Score Troponin: Troponin T < 0.010 ng/mL (0.00-0.029) 06/30/22 10:01 Results - Labs CBC & Chem 7: 07/02/22 04:58 07/02/22 04:58 Labs: Laboratory Last Values WBC 13.9 K/mm3 (4.5-11.0) H 07/02/22 04:58 RBC 3.99 M/mm3 (3.65-5.03) 07/02/22 04:58 Hgb 11.2 gm/dl (10.1-14.3) 07/02/22 04:58 Hct 35.6 % (30.3-42.9) 07/02/22 04:58 MCV 89 fl (79-97) 07/02/22 04:58 MCH 28 pg (28-32) 07/02/22 04:58 MCHC 32 % (30-34) 07/02/22 04:58 RDW 13.1 % (13.2-15.2) L 07/02/22 04:58 Plt Count 271 K/mm3 (140-440) 07/02/22 04:58 Lymph % (Auto) 12.9 % (13.4-35.0) L 07/01/22 04:14 [place] % (Auto) 8.2 % (0.0-7.3) H 07/01/22 04:14 Eos % (Auto) 0.0 % (0.0-4.3) 07/01/22 04:14 Baso % (Auto) 0.2 % (0.0-1.8) 07/01/22 04:14 Lymph # (Auto) 1.7 K/mm3 (1.2-5.4) 07/01/22 04:14 Churchill # (Auto) 1.1 K/mm3 (0.0-0.8) H 07/01/22 04:14 Eos # (Auto) 0.0 K/mm3 (0.0-0.4) 07/01/22 04:14 Baso # (Auto) 0.0 K/mm3 (0.0-0.1) 07/01/22 04:14 Seg Neutrophils % 78.7 % (40.0-70.0) H 07/01/22 04:14 Seg Neutrophils # 10.3 K/mm3 (1.8-7.7) H 07/01/22 04:14 ABG pH 7.394 pH Units (7.350-7.450) 07/01/22 05:00 ABG pCO2 34.0 mm Hg 07/01/22 05:00 ABG pO2 160.8 mm Hg (80.0-90.0) H 07/01/22 05:00 ABG HCO3 20.3 mmol/L (20.0-26.0) 07/01/22 05:00 ABG O2 Saturation 99.0 % (95.0-99.0) 07/01/22 05:00 ABG O2 Content 16.4 (0.0-44) 07/01/22 05:00 ABG Base Excess -3.8 mmol/L (-2.0-3.0) L 07/01/22 05:00 ABG Hemoglobin 11.7 gm/dl (12.0-16.0) L 07/01/22 05:00 ABG Carboxyhemoglobin 1.2 % (0.0-5.0) 07/01/22 05:00 ABG Methemoglobin 0.5 % (0.0-1.5) 07/01/22 05:00 Oxyhemoglobin 97.4 % (95.0-99.0) 07/01/22 05:00 FiO2 35 % 07/01/22 05:00 Sodium 142 mmol/L (137-145) 07/02/22 04:58 Potassium 4.0 mmol/L (3.6-5.0) D 07/02/22 04:58 Chloride 106.1 mmol/L (98-107) 07/02/22 04:58 Carbon Dioxide 25 mmol/L (22-30) 07/02/22 04:58 Anion Gap 15 mmol/L 07/02/22 04:58 BUN 20 mg/dL (7-17) H 07/02/22 04:58 Creatinine 0.7 mg/dL (0.6-1.2) 07/02/22 04:58 Estimated GFR > 60 ml/min 07/02/22 04:58 BUN/Creatinine Ratio 29 % 07/02/22 04:58 Glucose 122 mg/dL (65-100) H 07/02/22 04:58 POC Glucose 102 mg/dL (70-105) 07/03/22 16:54 Lactic Acid 1.70 mmol/L (0.7-2.0) 07/02/22 04:58 Calcium 8.6 mg/dL (8.4-10.2) 07/02/22 04:58 Total Bilirubin 0.40 mg/dL (0.1-1.2) 06/30/22 10:01 AST 25 units/L (5-40) 06/30/22 10:01 ALT 11 units/L (7-56) 06/30/22 10:01 Alkaline Phosphatase 85 units/L (35-129) 06/30/22 10:01 Troponin T < 0.010 ng/mL (0.00-0.029) 06/30/22 10:01 Total Protein 7.0 g/dL (6.3-8.2) 06/30/22 10:01 Albumin 4.2 g/dL (3.9-5) 06/30/22 10:01 Albumin/Globulin Ratio 1.5 % 06/30/22 10:01 Prealbumin 0.132 g/L (0.200-0.400) L 07/01/22 15:09 Vitamin B12 882.1 pg/mL (211-911) 07/01/22 15:09 Folate 9.64 ng/mL (7.3-26.0) 07/01/22 15:09 TSH 1.000 mlU/mL (0.270-4.200) 07/01/22 15:09 Urine Color Straw (Yellow) 07/01/22 08:26 Urine Turbidity Clear (Clear) 07/01/22 08:26 Specific [place] (Man) 1.015 (1.003-1.030) 07/01/22 08:26 Ur Protein (Man) 1+ mg/dL (Negative) 07/01/22 08:26 Ur Ketones (Man) 3+ (Negative) 07/01/22 08:26 Ur Nitrite (Man) Negative (Negative) 07/01/22 08:26 Urine Bilirubin (Man) Negative (Negative) 07/01/22 08:26 Leukocyte Esterase (Man) Trace (Negative) 07/01/22 08:26 Urine WBC (Auto) 42.0 /HPF (0.0-6.0) H 07/01/22 08:26 Urine RBC (Auto) 89.0 /HPF (0.0-6.0) 07/01/22 08:26 U Epithel Cells (Auto) 6.0 /HPF (0-13.0) 07/01/22 08:26 Urine Bacteria (Auto) 1+ /HPF (Negative) 07/01/22 08:26 Urine RBC (Manual) 3+ (Negative) 07/01/22 08:26 Amorphous Crystals Few 07/01/22 08:26 Hyaline Casts 1 /LPF 07/01/22 08:26 Urine Mucus Few /HPF 07/01/22 08:26 Urine Creatinine 49.9 mg/dL (0.1-20.0) H 07/01/22 08:26 Urine Sodium 139 mmol/L 07/01/22 08:26 Syphilis IgG/IgM Ab Nonreactive (NonReactive) 07/01/22 15:09 Blood Type B POSITIVE 06/30/22 23:26 Antibody Screen Negative 06/30/22 23:26 Microbiology: Microbiology 06/30/22 23:26 Peripheral/Venous Blood Culture - Preliminary NO GROWTH AFTER 72 HOURS 06/30/22 23:26 Peripheral/Venous Blood Culture - Preliminary NO GROWTH AFTER 72 HOURS 06/30/22 10:50 Tracheal Aspirate Sputum Culture - Preliminary Klebsiella Pneumoniae Munoz/IV: Voiding Method Indwelling Catheter Active Medications - Current Medications Current Medications: Generic Name Dose Route Start Last Admin Trade Name Freq PRN Reason Stop Dose Admin Acetaminophen 650 mg 06/30/22 12:58 Acetaminophen 325 Mg Tab PO Q6H PRN Pain MILD(1-3)/Fever >100.5/MCGRATH Albuterol 2.5 mg 06/30/22 12:58 Albuterol 2.5 Mg/3 Ml Nebu IH Q3HRT PRN Shortness Of Breath Amlodipine Besylate 10 mg 07/01/22 10:00 07/04/22 10:28 Amlodipine 10 Mg Tab FEEDTUBE 10 mg QDAY JAVIER Administration Docusate Sodium 100 mg 07/01/22 10:00 07/04/22 10:27 Docusate Sodium 100 Mg/10 Ml Oral Liqd FEEDTUBE 100 mg BID JAVIER Administration Ferrous Sulfate 300 mg 07/01/22 10:00 07/04/22 10:28 Ferrous Sulfate 300 Mg (60mg Elemental Iron) / 5 Ml Oral Liqd PO 300 mg QDAY JAVIER Administration Heparin Sodium (Porcine) 5,000 unit 06/30/22 22:00 07/04/22 10:27 Heparin 5,000 Unit/1 Ml Vial SUB-Q 5,000 unit Q12HR JAVIER Administration Hydralazine HCl 10 mg 06/30/22 13:03 07/02/22 12:40 Hydralazine 20 Mg/1 Ml Inj IV 10 mg Q8HR PRN Administration Hypertension Levetiracetam 500 mg 07/01/22 10:00 07/04/22 10:27 Levetiracetam 500 Mg/5 Ml Oral Liqd FEEDTUBE 500 mg BID JAVIER Administration Mirtazapine 15 mg 07/01/22 22:00 07/03/22 21:17 Mirtazapine 15 Mg Tab FEEDTUBE 15 mg QHS JAVIER Administration Oxycodone/Acetaminophen 1 tab 06/30/22 12:58 Oxycodone /Acetaminophen 5-325mg Tab PO Q6H PRN Pain, Moderate (4-6) Senna 8.6 mg 07/01/22 10:00 07/04/22 10:28 Sennosides 8.6 Mg Tab FEEDTUBE 8.6 mg QDAY JAVIER Administration Sodium Chloride 10 ml 06/30/22 22:00 07/04/22 10:28 Sodium Chloride 0.9% 10 Ml Flush Syringe IV 10 ml BID JAVIER Administration Sodium Chloride 10 ml 06/30/22 12:58 Sodium Chloride 0.9% 10 Ml Flush Syringe IV PRN PRN LINE FLUSH Nutrition/Malnutrition Assess - Dietary Evaluation Nutrition/Malnutrition Findings: Nutrition Notes Start: 07/01/22 10:44 Freq: Status: Active Protocol: Document 07/03/22 17:09 CM (Rec: 07/03/22 17:25 CM [id number]) Co-Sign 07/03/22 17:09 WW Nutrition Notes Need for Assessment generated from: MD Order Initial or Follow up Assessment Current Diagnosis Diabetes,Hypertension, Respiratory Failure, Malnutrition,Stroke Other Pertinent Diagnosis AMS, Vascular Dementia, Cerebral Atherosclerosis, hx of esophageal surgery Current Diet NPO Labs/Tests 07/03: BUN` 20 Pertinent Medications 07/03: Ferrous sulfate Height 5 ft Weight 38 kg [place] Body Weight (kg) 45.45 BMI 16.3 Weight change and time frame No unintentional wt loss reported per malnutrition screening tool. Weight Status Underweight Subjective/Other Information RD consult for write/manage tube feed. Pt NPO and extubated per EMR. Failed ST evaluation 07/02 per progress note. DHT terminates in distal stomach but is not transpyloric per Abdomen XR . May require PEG placement per progress notes. Abdomen flat, soft, w/ BS+ per Physical Assessment. Nutrition-focused physical examination performed indicating moderate muscle wasting in chronic setting. Burn Absent Trauma Absent GI Symptoms None Difficulty In Swallowing Skin Integrity/Comment Rolly 11 - No symptoms Current % PO Other Minimum of two criteria No Muscle Mass Moderate Depletion (severe) Fluid Accumulation N/A Reduced Customer Care Consultant Strength N/A (non-severe) Protein-Calorie Malnutrition N\A #1 Nutrition Diagnosis Inadequate oral intake Etiology Decreased motor function As Evidenced by Signs and Symptoms Pt NPO pending enteral nutrition Is patient on ventilator? No Is Patient Ambulatory and/or Out of Bed No REE-([facility]-confined to bed) 897.600 Kcal/Kg value to use for calculation 27 Approximate Energy Requirements Using 1026 kcal/Kg Calculation Used for Recommendations Kcal/kg Additional Notes Protein: 1.0-1.2g/kg ABW; 38- 46g PRO q day Fluids: 30mL/kcal or per MD Nutrition Intervention Nutrition Support: Recommend initiating Glucerna 1.2 @ 15mL/hr and increasing by 10mL q 8hrs to goal rate of 35mL/hr x 24hrs. Flush with 60mL q 4hr. Kcal 1,008 Protein (gm) 50 Fluid (mL) 675 % RDI: (98%/109%) Goal #1 Pt to tolerate >75% of estimated energy/protein needs through enteral nutrition Follow-Up By: 07/07/22 Additional Comments Monitor TF rate, tolerance, and GI symptoms.
--- NOTE | 2022-07-04 12:13 | Anesthesia Day of Surgery ---
Anesthesia Day of Surgery - Day of Surgery Patient Examined: Yes Patient H&P Reviewed: Yes Patient is NPO: Yes
--- NOTE | 2022-07-04 12:13 | Anesthesia Consultation ---
Anesthesia Consult and Med Hx Date of service: 07/04/22 - Airway Anesthetic Teeth Evaluation: Poor ROM Head & Neck: Adequate Mental/Hyoid Distance: Adequate Mallampati Class: Class II Intubation Access Assessment: Probably Good - Pre-Operative Health Status ASA Pre-Surgery Classification: ASA3 Proposed Anesthetic Plan: MAC - Pulmonary Hx Respiratory Symptoms: Yes (SpO2 86% on room air on admission ) - Cardiovascular System Hx Hypertension: Yes Hx Coronary Artery Disease: No (CHF) Hx Peripheral Vascular Disease: Yes (cerebral atherosclerosis) - Central Nervous System Hx Seizures: Yes CVA: Yes Hx Psychiatric Problems: Yes (vascular dementia) - Gastrointestinal Hx Gastroesophageal Reflux Disease: No (dysphagea) - Endocrine Hx Non-Insulin Dependent Diabetes: Yes - Other Systems Hx Obesity: No (malnutrition) - Additional Comments Anesthesia Medical History Comments: anesthesia consent received from grandson (AMY) on the phone
[2022-07-04] MEDS ORDERED: SODIUM CHLORIDE 0.9% 1000 ML 1,000 ML ONE (14:35)
[2022-07-04] MEDS ORDERED: propofoL 200 MG/20 ML VIAL IV ONE (14:40)
[2022-07-04] MEDS ORDERED: ceFAZolin/Water 2 GM/20 ML 2 GM/20 ML SYRINGE IV ONE (14:44)
[2022-07-04] MEDS ORDERED: LIDOCAINE MPF (2%) 20 MG/1 ML VIAL 5 ML ONE (14:50)
--- NOTE | 2022-07-04 15:52 | Post Operative Note ---
Pre-op diagnosis: dysphagia Post-op diagnosis: same Findings: EGH: hiatal hernia - otherwise nl - peg placed, bumper at 2 1/2 cm Procedure: egd/peg Anesthesia: MAC Surgeon: HAKAN GOMEZ Estimated blood loss: none Pathology: list Specimen disposition: to lab Condition: stable Disposition: floor
--- NOTE | 2022-07-04 16:17 | Post Anesthesia Evaluation ---
- Post Anesthesia Evaluation Patient Participated: Yes Airway Patent: Yes Stable Respiratory Function: Yes Nausea/Vomiting: No Temp > 96.8F: Yes Pain Manageable: Yes Adequeate Hydration: Yes Anesthesia Complications: No Block Receding Appropriately: Not Applicable Patient on Ventilator: No
--- NOTE | 2022-07-04 16:50 | Operative Report ---
DATE OF SURGERY: 07/04/2022 PROCEDURE: EGD with PEG tube placement. INDICATIONS: * Dysphagia. * Weight loss. * PEG tube placement. MEDICATIONS: Propofol per HAIR BLENDER. COMPLICATIONS: None. DESCRIPTION OF PROCEDURE: The patient was brought to the procedure suite. The patient had the procedure discussed with her family at length. All risks, complications and benefits were discussed, after which consent was gotten for the procedure to be performed. The patient was placed in a supine position. Mouth block placed in the patient's oral cavity. After adequate sedation with medication as above, endoscope placed in the mouth and brought to the level of second portion of duodenum. Retroflexion views performed. The patient's vital signs remained stable throughout the procedure. FINDINGS: There was a small hiatal hernia at GE junction at 38 cm from the gums. Esophagus otherwise appeared to be normal. Previous PEG tube site noted in the gastric body. Stomach otherwise appeared to be normal. Duodenum appeared to be normal. Retroflexion view performed in the stomach showed no other pathology other than noted above. After this inspection, using standard technique and transillumination, an area for adequate placement of PEG tube was found in the gastric body. Using a standard technique, a 20-Estonian pull PEG was then placed. Bumper was noted at 2.5 cm. Postprocedure appearance was satisfactory. The patient tolerated the procedure well. No complications noted during the procedure. IMPRESSION: * Hiatal hernia. * Previous PEG tube site noted, intact. * Otherwise normal EGD. * PEG tube placed without obvious complications. RECOMMENDATIONS: * Standard PEG tube orders, see chart. * Watch for signs of bleeding or infection. * Okay to use PEG tube in 6 hours. * We will follow up in a.m. TID: [id number] RECEIPT: [id number] CAB/ARV
[2022-07-04] MEDS: MIRTAZAPINE 15 MG TAB FEEDTUBE SCH (22:37)
--- NOTE | 2022-07-05 10:42 | Discharge Summary ---
Providers - Providers Date of Admission: 06/30/22 12:58 Attending physician: DAXA CLARK MD 07/01/22 08:24 Consult to Physician [CONS] Routine Comment: call office spoke to michelle Consulting Provider: BROOKLYN HUSSEIN Physician Instructions: Reason For Exam: ams 07/01/22 15:22 Occupational Therapy Evaluate and Treat [CONS] Routine Comment: Reason For Exam: weakness Physical Therapy Evaluation and Treat [CONS] Routine Comment: Reason For Exam: weakness 07/02/22 08:10 Speech Therapy Evaluation and Treat [CONS] Routine Reason For Exam: swallow eval 07/02/22 18:03 Consult to Dietitian/Nutrition [CONS] Routine Physician Instructions: Reason For Exam: Reason for Consult: Write/Manage Tube Feeding 07/04/22 07:38 Consult to Physician [CONS] Routine Comment: Consulting Provider: HAKAN GOMEZ Physician Instructions: Reason For Exam: PEG tube 07/04/22 15:54 Consult to Dietitian/Nutrition [CONS] Routine Physician Instructions: Reason For Exam: Reason for Consult: post-peg placement Primary care physician: JAKOB MEREDITH Hospitalization Reason for admission: weakness Condition: Stable Hospital course: This is is an 87-year-old female who is resident of a residential with vascular dementia, cerebral atherosclerosis, DM, CHF, HTN, seizure disorder, CVA, debility, malnutrition, DVT (not currently on therapeutic anticoagulation) who presented to the emergency department on 06/30 via EMS after being notified when she was found to have increased confusion and weakness at the residential. Upon arrival the patient was found to be in distress and transferred to [facility]. In the emergency department patient had a pulse ox of 86% on room air, sepsis secondary to UTI, toxic metabolic encephalopathy, metabolic acidosis, hyponatremia as well as hypertensive urgency at 203/103. Teleneurology did assess the patient and recommended EEG. Patient was intubated in the emergency department. Patient was admitted to the hospitalist service to the ICU with consults to [facility]. Hospital course to date: 07/01: Neurology consulted, patient placed on CPAP and extubated), LR bolus for hypotension, EEG ordered and neurology consulted. Lisinopril discontinued. 07/02: DHT placed today, ST evaluation completed today which patient failed. Patient will be transferred to the floor. PT/OT consulted. 07/03: Therapy recs noted. Given ST evaluation, patient may require PEG. I will reach out to discuss details of assessment today and if needed consult GI. Dispo is [facility] 07/04: Patient will need PEG. GI consulted for PEG placement, D/w STRATEGY MANAGER this AM. Discussed with family at bedside who are agreeable to procedure. Dispo: [facility] 07/05: Patient clinically stable, PEG placed, she is tolerating diet. Cleared for discharge back to the SNF. 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 -CTA neck showed no hemodynamically significant stenosis appreciated in the CTA of the neck, small pulmonary nodules and pleural thickening identified -MRI brain shows no acute acute abnormality, volume loss and chronic white matter changes -EEG pending -PT/OT consulted Cardiac: Accelerated Hypertension (resolved), h/o HTN -Admitted with BP 203/103 -Blood pressure monitoring per protocol -Per neurology: Permissive hypertension until MRI -Amlodipine -2016 echocardiogram shows EF of 60 to 65% Respiratory: Acute hypoxic respiratory failure, h/o DVT -CCM consulted, appreciate recommendations -Intubated on 06/30 with 7.5 OETT at 22 cm at the lips and extubated on 07/01 -Currently on nasal cannula -SPO2 monitor per protocol -Pulmonary hygiene -Supplemental oxygen as needed GI: h/o malnutrition -According to family patient did have a diet at residential -Failed bedside swallow evaluation due to refusing to participate -ST evaluation completed which he failed -DHT -Nutrition consult for tube feeding -PPI -BR: senokot : Acute kidney injury secondary to vasomotor nephropathy (resolved), hyperkalemia (resolved) -Monitor intake and output -Renally dose medications -Avoid nephrotoxic medications -FENa 0.73% -Trend BMP ID: SIRS POA, ruled out sepsis, Lactic Acidosis (resolved) -Admitted with tachycardia, ruthie, lactic acidosis, leukocytosis -f/u blood culture -Monitor WBC and temperature curve Endo: h/o DM -Avoid hypoglycemia -SSI -Accu-Cheks q. 6hr Heme: Leukocytosis (improving) -Trend CBC -Transfuse hemoglobin less than 7 -SCDs to BLE while in bed #Advance care planning Disease education conducted, care plan discussed, diagnoses discussed, prognosis discussed, patient is full code. Pt family acknowledges understanding and agree with care plan, +30 minutes. Disposition: 03 [facility] Final Discharge Diagnosis (Prints w/discharge instructions): Acute metabolic encephalopathy (improved), seizure, ruled out ischemic CVA, h/o seizure disorder, cerebral atherosclerosis, vascular dementia, CVA, debility. Accelerated Hypertension (resolved), HTN. Acute hypoxic respiratory failure, h/o DVT. Severe protein calorie malnutrition. Acute kidney injury secondary to vasomotor nephropathy (resolved), hyperkalemia (resolved). SIRS POA, ruled out sepsis, Lactic Acidosis (resolved). DM. Leukocytosis Time spent for discharge: 35 mins Core Measure Documentation - Palliative Care Palliative Care/ Comfort Measures: Not Applicable - Core Measures Any of the following diagnoses?: none Exam - Physical Exam Narrative exam: - Physical exam Narrative exam: General appearance: Present: no acute distress, cachectic - EENT Eyes: Present: PERRL, EOM intact ENT: dentition normal - Neck Neck: Present: normal ROM - Respiratory Respiratory effort: normal Respiratory: bilateral: CTA - Cardiovascular Rhythm: regular Heart Sounds: Present: S1 & S2. Absent: systolic murmur, diastolic murmur - Extremities Extremities: no ischemia, pulses intact, pulses symmetrical, No edema, normal temperature, normal color Peripheral Pulses: within normal limits - Abdominal General gastrointestinal: soft, non-tender, non-distended, normal bowel sounds, PEG in place. - Integumentary Integumentary: Present: warm, dry - Psychiatric Psychiatric: cooperative - Neurologic Neurologic: no focal deficits - Allied Health Allied health notes reviewed: nursing, PT, ST, OT, RT, social work - Constitutional Vitals: Temp Pulse Resp BP Pulse Ox 98.2 F 90 16 146/76 100 07/05/22 05:37 07/05/22 05:37 07/05/22 05:37 07/05/22 05:37 07/05/22 05:37 Plan Activity: advance as tolerated, fall precautions Diet: other (per tube feed) Special Instructions: record daily weights, record daily BP diary Follow up with: JAKOB MEREDITH MD [Primary Care Provider] - 3-5 Days SHADY TROY MD [Staff Physician] - 7 Days
[2022-07-05] MEDS: DOCUSATE SODIUM 100 MG/10 ML ORAL LIQD FEEDTUBE SCH ×2 (10:46→21:47)
[2022-07-05] MEDS: levETIRAcetam 500 MG/5 ML ORAL LIQD FEEDTUBE SCH ×2 (10:46→21:47)
[2022-07-05] MEDS: SENNOSIDES 8.6 MG TAB FEEDTUBE SCH (10:46)
[2022-07-05] MEDS: FERROUS SULFATE 300 MG (60MG Elemental Iron) / 5 mL ORAL LIQD PO SCH (10:47)
[2022-07-05] MEDS: amLODIPine 10 MG TAB FEEDTUBE SCH (10:47)
[2022-07-05] MEDS: HEPARIN 5,000 UNIT/1 ML VIAL SUB-Q SCH ×2 (10:47→21:48)
--- NOTE | 2022-07-05 12:44 | Gastroenterology Progress Note ---
Assessment and Plan # Dysphagia - s/p EGD/PEG on 07/04/2022 - tolerating tube feeds. - outer bumper loosened by bedside. Rec - aspiration precautions - keep HOB elevated - Patient Problems (1) Severe malnutrition Current Visit: No Status: Acute Subjective Date of service: 07/05/22 Interval history: Patient tolerating tube feeds overnight. No issues. No vomiting. Objective - Constitutional Vitals: Temp Pulse Resp BP Pulse Ox 98.2 F 90 16 146/76 100 07/05/22 05:37 07/05/22 05:37 07/05/22 05:37 07/05/22 05:37 07/05/22 05:37 General appearance: no acute distress - Neck Neck: supple - Respiratory Respiratory effort: normal - Cardiovascular Rhythm: regular Heart Sounds: Present: S1 & S2 - Gastrointestinal General gastrointestinal: Present: soft, non-tender, non-distended, other (PEG tube in place, bumper loosened by bedside) - Integumentary Integumentary: Present: warm - Labs CBC & Chem 7: 07/02/22 04:58 07/02/22 04:58 Labs: Laboratory Results - last 24 hr 07/01/22 07/01/22 07/04/22 15:09 15:09 22:30 POC Glucose 101 Vitamin B1 43 H Copper 120
[2022-07-05] MEDS: MIRTAZAPINE 15 MG TAB FEEDTUBE SCH (21:48)
--- NOTE | 2022-07-06 07:19 | Progress Note ---
Assessment and Plan Assessment and plan: This is is an 87-year-old female who is resident of a [facility] with vascular dementia, cerebral atherosclerosis, DM, CHF, HTN, seizure disorder, CVA, debility, malnutrition, DVT (not currently on therapeutic anticoagulation) who presented to the emergency department on 06/30 via EMS after being notified when she was found to have increased confusion and weakness at the [facility]. Upon arrival the patient was found to be in distress and transferred to [facility]. In the emergency department patient had a pulse ox of 86% on room air, sepsis secondary to UTI, toxic metabolic encephalopathy, metabolic acidosis, hyponatremia as well as hypertensive urgency at 203/103. Te leneurology did assess the patient and recommended EEG. Patient was intubated in the emergency department. Patient was admitted to the hospitalist service to the ICU with consults to CCM. Hospital course to date: 07/01: Neurology consulted, patient placed on CPAP and extubated), LR bolus for hypotension, EEG ordered and neurology consulted. Lisinopril discontinued. 07/02: DHT placed today, ST evaluation completed today which patient failed. Patient will be transferred to the floor. PT/OT consulted. 07/03: Therapy recs noted. Given ST evaluation, patient may require PEG. I will reach out to discuss details of assessment today and if needed consult GI. Dispo is [facility]. 07/04: Patient will need PEG. GI consulted for PEG placement, D/w CHILDREN'S PROGRAM COORDINATOR this AM. Discussed with family at bedside who are agreeable to procedure. Dispo: [facility] 07/05: Patient clinically stable, PEG placed, she is tolerating diet. Cleared for discharge back to the SNF. 07/06: Patient is awaiting acceptance of the [facility]. 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 -CTA neck showed no hemodynamically significant stenosis appreciated in the CTA of the neck, small pulmonary nodules and pleural thickening identified -MRI brain shows no acute acute abnormality, volume loss and chronic white matter changes -EEG pending -PT/OT consulted Cardiac: Accelerated Hypertension (resolved), h/o HTN -Admitted with BP 203/103 -Blood pressure monitoring per protocol -Per neurology: Permissive hypertension until MRI -Amlodipine -2016 echocardiogram shows EF of 60 to 65% Respiratory: Acute hypoxic respiratory failure, h/o DVT -CCM consulted, appreciate recommendations -Intubated on 06/30 with 7.5 OETT at 22 cm at the lips and extubated on 07/01 -Currently on nasal cannula -SPO2 monitor per protocol -Pulmonary hygiene -Supplemental oxygen as needed GI: h/o malnutrition -According to family patient did have a diet at [facility] -Failed bedside swallow evaluation due to refusing to participate -ST evaluation completed which he failed -DHT -Nutrition consult for tube feeding -PPI -BR: senokot : Acute kidney injury secondary to vasomotor nephropathy (resolved), hyperkalemia (resolved) -Monitor intake and output -Renally dose medications -Avoid nephrotoxic medications -FENa 0.73% -Trend BMP ID: SIRS POA, ruled out sepsis, Lactic Acidosis (resolved) -Admitted with tachycardia, ruthie, lactic acidosis, leukocytosis -f/u blood culture -Monitor WBC and temperature curve Endo: h/o DM -Avoid hypoglycemia -SSI -Accu-Cheks q. 6hr Heme: Leukocytosis (improving) -Trend CBC -Transfuse hemoglobin less than 7 -SCDs to BLE while in bed #Advance care planning Disease education conducted, care plan discussed, diagnoses discussed, prognosis discussed, patient is full code. Pt family acknowledges understanding and agree with care plan, +30 minutes. Disposition: 03 [facility] Final Discharge Diagnosis (Prints w/discharge instructions): Acute metabolic encephalopathy (improved), seizure, ruled out ischemic CVA, h/o seizure disorder, cerebral atherosclerosis, vascular dementia, CVA, debility. Accelerated Hypertension (resolved), HTN. Acute hypoxic respiratory failure, h/o DVT. Severe protein calorie malnutrition. Acute kidney injury secondary to vasomotor nephropathy (resolved), hyperkalemia (resolved). SIRS POA, ruled out sepsis, Lactic Acidosis (resolved). DM. Leukocytosis History Interval history: Patient seen and examined no acute issues overnight. Patient is tolerating diet. Awaiting acceptance by the facility. Hospitalist Physical - Physical exam Narrative exam: - Physical exam Narrative exam: General appearance: Present: no acute distress, cachectic - EENT Eyes: Present: PERRL, EOM intact ENT: dentition normal - Neck Neck: Present: normal ROM - Respiratory Respiratory effort: normal Respiratory: bilateral: CTA - Cardiovascular Rhythm: regular Heart Sounds: Present: S1 & S2. Absent: systolic murmur, diastolic murmur - Extremities Extremities: no ischemia, pulses intact, pulses symmetrical, No edema, normal temperature, normal color Peripheral Pulses: within normal limits - Abdominal General gastrointestinal: soft, non-tender, non-distended, normal bowel sounds, PEG in place. - Integumentary Integumentary: Present: warm, dry - Psychiatric Psychiatric: cooperative - Neurologic Neurologic: no focal deficits - Allied Health Allied health notes reviewed: nursing, PT, ST, OT, RT, social work - Constitutional Vitals: Temp Pulse Resp BP Pulse Ox 98.9 F 97 H 18 141/75 98 07/05/22 21:58 07/05/22 22:00 07/05/22 22:00 07/05/22 21:58 07/05/22 23:18 General appearance: Present: no acute distress, cachectic HEART Score - HEART Score Troponin: Troponin T < 0.010 ng/mL (0.00-0.029) 06/30/22 10:01 Results - Labs CBC & Chem 7: 07/02/22 04:58 07/02/22 04:58 Labs: Laboratory Last Values WBC 13.9 K/mm3 (4.5-11.0) H 07/02/22 04:58 RBC 3.99 M/mm3 (3.65-5.03) 07/02/22 04:58 Hgb 11.2 gm/dl (10.1-14.3) 07/02/22 04:58 Hct 35.6 % (30.3-42.9) 07/02/22 04:58 MCV 89 fl (79-97) 07/02/22 04:58 MCH 28 pg (28-32) 07/02/22 04:58 MCHC 32 % (30-34) 07/02/22 04:58 RDW 13.1 % (13.2-15.2) L 07/02/22 04:58 Plt Count 271 K/mm3 (140-440) 07/02/22 04:58 Lymph % (Auto) 12.9 % (13.4-35.0) L 07/01/22 04:14 Storey % (Auto) 8.2 % (0.0-7.3) H 07/01/22 04:14 Eos % (Auto) 0.0 % (0.0-4.3) 07/01/22 04:14 Baso % (Auto) 0.2 % (0.0-1.8) 07/01/22 04:14 Lymph # (Auto) 1.7 K/mm3 (1.2-5.4) 07/01/22 04:14 Storey # (Auto) 1.1 K/mm3 (0.0-0.8) H 07/01/22 04:14 Eos # (Auto) 0.0 K/mm3 (0.0-0.4) 07/01/22 04:14 Baso # (Auto) 0.0 K/mm3 (0.0-0.1) 07/01/22 04:14 Seg Neutrophils % 78.7 % (40.0-70.0) H 07/01/22 04:14 Seg Neutrophils # 10.3 K/mm3 (1.8-7.7) H 07/01/22 04:14 ABG pH 7.394 pH Units (7.350-7.450) 07/01/22 05:00 ABG pCO2 34.0 mm Hg 07/01/22 05:00 ABG pO2 160.8 mm Hg (80.0-90.0) H 07/01/22 05:00 ABG HCO3 20.3 mmol/L (20.0-26.0) 07/01/22 05:00 ABG O2 Saturation 99.0 % (95.0-99.0) 07/01/22 05:00 ABG O2 Content 16.4 (0.0-44) 07/01/22 05:00 ABG Base Excess -3.8 mmol/L (-2.0-3.0) L 07/01/22 05:00 ABG Hemoglobin 11.7 gm/dl (12.0-16.0) L 07/01/22 05:00 ABG Carboxyhemoglobin 1.2 % (0.0-5.0) 07/01/22 05:00 ABG Methemoglobin 0.5 % (0.0-1.5) 07/01/22 05:00 Oxyhemoglobin 97.4 % (95.0-99.0) 07/01/22 05:00 FiO2 35 % 07/01/22 05:00 Sodium 142 mmol/L (137-145) 07/02/22 04:58 Potassium 4.0 mmol/L (3.6-5.0) D 07/02/22 04:58 Chloride 106.1 mmol/L (98-107) 07/02/22 04:58 Carbon Dioxide 25 mmol/L (22-30) 07/02/22 04:58 Anion Gap 15 mmol/L 07/02/22 04:58 BUN 20 mg/dL (7-17) H 07/02/22 04:58 Creatinine 0.7 mg/dL (0.6-1.2) 07/02/22 04:58 Estimated GFR > 60 ml/min 07/02/22 04:58 BUN/Creatinine Ratio 29 % 07/02/22 04:58 Glucose 122 mg/dL (65-100) H 07/02/22 04:58 POC Glucose 133 mg/dL (70-105) H 07/05/22 16:23 Lactic Acid 1.70 mmol/L (0.7-2.0) 07/02/22 04:58 Calcium 8.6 mg/dL (8.4-10.2) 07/02/22 04:58 Total Bilirubin 0.40 mg/dL (0.1-1.2) 06/30/22 10:01 AST 25 units/L (5-40) 06/30/22 10:01 ALT 11 units/L (7-56) 06/30/22 10:01 Alkaline Phosphatase 85 units/L (35-129) 06/30/22 10:01 Troponin T < 0.010 ng/mL (0.00-0.029) 06/30/22 10:01 Total Protein 7.0 g/dL (6.3-8.2) 06/30/22 10:01 Albumin 4.2 g/dL (3.9-5) 06/30/22 10:01 Albumin/Globulin Ratio 1.5 % 06/30/22 10:01 Prealbumin 0.132 g/L (0.200-0.400) L 07/01/22 15:09 Vitamin B1 43 nmol/L (8-30) H 07/01/22 15:09 Vitamin B12 882.1 pg/mL (211-911) 07/01/22 15:09 Folate 9.64 ng/mL (7.3-26.0) 07/01/22 15:09 TSH 1.000 mlU/mL (0.270-4.200) 07/01/22 15:09 Urine Color Straw (Yellow) 07/01/22 08:26 Urine Turbidity Clear (Clear) 07/01/22 08:26 Specific [place] (Man) 1.015 (1.003-1.030) 07/01/22 08:26 Ur Protein (Man) 1+ mg/dL (Negative) 07/01/22 08:26 Ur Ketones (Man) 3+ (Negative) 07/01/22 08:26 Ur Nitrite (Man) Negative (Negative) 07/01/22 08:26 Urine Bilirubin (Man) Negative (Negative) 07/01/22 08:26 Leukocyte Esterase (Man) Trace (Negative) 07/01/22 08:26 Urine WBC (Auto) 42.0 /HPF (0.0-6.0) H 07/01/22 08:26 Urine RBC (Auto) 89.0 /HPF (0.0-6.0) 07/01/22 08:26 U Epithel Cells (Auto) 6.0 /HPF (0-13.0) 07/01/22 08:26 Urine Bacteria (Auto) 1+ /HPF (Negative) 07/01/22 08:26 Urine RBC (Manual) 3+ (Negative) 07/01/22 08:26 Amorphous Crystals Few 07/01/22 08:26 Hyaline Casts 1 /LPF 07/01/22 08:26 Urine Mucus Few /HPF 07/01/22 08:26 Urine Creatinine 49.9 mg/dL (0.1-20.0) H 07/01/22 08:26 Urine Sodium 139 mmol/L 07/01/22 08:26 Copper 120 mcg/dL (70-175) 07/01/22 15:09 Syphilis IgG/IgM Ab Nonreactive (NonReactive) 07/01/22 15:09 Blood Type B POSITIVE 06/30/22 23:26 Antibody Screen Negative 06/30/22 23:26 Microbiology: Microbiology 06/30/22 23:26 Peripheral/Venous Blood Culture - Final NO GROWTH AFTER 5 DAYS 06/30/22 23:26 Peripheral/Venous Blood Culture - Final NO GROWTH AFTER 5 DAYS Munoz/IV: Voiding Method External Female Catheter Active Medications - Current Medications Current Medications: Generic Name Dose Route Start Last Admin Trade Name Freq PRN Reason Stop Dose Admin Acetaminophen 650 mg 06/30/22 12:58 Acetaminophen 325 Mg Tab PO Q6H PRN Pain MILD(1-3)/Fever >100.5/MCGRATH Albuterol 2.5 mg 06/30/22 12:58 Albuterol 2.5 Mg/3 Ml Nebu IH Q3HRT PRN Shortness Of Breath Amlodipine Besylate 10 mg 07/01/22 10:00 07/05/22 10:47 Amlodipine 10 Mg Tab FEEDTUBE 10 mg QDAY JAVIER Administration Docusate Sodium 100 mg 07/01/22 10:00 07/05/22 21:47 Docusate Sodium 100 Mg/10 Ml Oral Liqd FEEDTUBE 100 mg BID JAVIER Administration Ferrous Sulfate 300 mg 07/01/22 10:00 07/05/22 10:47 Ferrous Sulfate 300 Mg (60mg Elemental Iron) / 5 Ml Oral Liqd PO 300 mg QDAY JAVIER Administration Heparin Sodium (Porcine) 5,000 unit 06/30/22 22:00 07/05/22 21:48 Heparin 5,000 Unit/1 Ml Vial SUB-Q 5,000 unit Q12HR JAVIER Administration Hydralazine HCl 10 mg 06/30/22 13:03 07/02/22 12:40 Hydralazine 20 Mg/1 Ml Inj IV 10 mg Q8HR PRN Administration Hypertension Levetiracetam 500 mg 07/01/22 10:00 07/05/22 21:47 Levetiracetam 500 Mg/5 Ml Oral Liqd FEEDTUBE 500 mg BID JAVIER Administration Mirtazapine 15 mg 07/01/22 22:00 07/05/22 21:48 Mirtazapine 15 Mg Tab FEEDTUBE 15 mg QHS JAVIER Administration Oxycodone/Acetaminophen 1 tab 06/30/22 12:58 Oxycodone /Acetaminophen 5-325mg Tab PO Q6H PRN Pain, Moderate (4-6) Senna 8.6 mg 07/01/22 10:00 07/05/22 10:46 Sennosides 8.6 Mg Tab FEEDTUBE 8.6 mg QDAY JAVIER Administration Sodium Chloride 10 ml 06/30/22 22:00 07/05/22 21:48 Sodium Chloride 0.9% 10 Ml Flush Syringe IV 10 ml BID JAVIER Administration Sodium Chloride 10 ml 06/30/22 12:58 Sodium Chloride 0.9% 10 Ml Flush Syringe IV PRN PRN LINE FLUSH Nutrition/Malnutrition Assess - Dietary Evaluation Nutrition/Malnutrition Findings: Nutrition Notes Start: 07/01/22 10:44 Freq: Status: Active Protocol: Document 07/03/22 17:09 CM (Rec: 07/03/22 17:25 CM [id number]) Co-Sign 07/03/22 17:09 WW Nutrition Notes Need for Assessment generated from: MD Order Initial or Follow up Assessment Current Diagnosis Diabetes,Hypertension, Respiratory Failure, Malnutrition,Stroke Other Pertinent Diagnosis AMS, Vascular Dementia, Cerebral Atherosclerosis, hx of esophageal surgery Current Diet NPO Labs/Tests 07/03: BUN` 20 Pertinent Medications 07/03: Ferrous sulfate Height 5 ft Weight 38 kg Butler Body Weight (kg) 45.45 BMI 16.3 Weight change and time frame No unintentional wt loss reported per malnutrition screening tool. Weight Status Underweight Subjective/Other Information RD consult for write/manage tube feed. Pt NPO and extubated per EMR. Failed ST evaluation 07/02 per progress note. DHT terminates in distal stomach but is not transpyloric per Abdomen XR . May require PEG placement per progress notes. Abdomen flat, soft, w/ BS+ per Physical Assessment. Nutrition-focused physical examination performed indicating moderate muscle wasting in chronic setting. Burn Absent Trauma Absent GI Symptoms None Difficulty In Swallowing Skin Integrity/Comment Rolly 11 - No symptoms Current % PO Other Minimum of two criteria No Muscle Mass Moderate Depletion (severe) Fluid Accumulation N/A Reduced Radiator Core Tester Strength N/A (non-severe) Protein-Calorie Malnutrition N\A #1 Nutrition Diagnosis Inadequate oral intake Etiology Decreased motor function As Evidenced by Signs and Symptoms Pt NPO pending enteral nutrition Is patient on ventilator? No Is Patient Ambulatory and/or Out of Bed No REE-(Otoe-St. Jeor-confined to bed) 897.600 Kcal/Kg value to use for calculation 27 Approximate Energy Requirements Using 1026 kcal/Kg Calculation Used for Recommendations Kcal/kg Additional Notes Protein: 1.0-1.2g/kg ABW; 38- 46g PRO q day Fluids: 30mL/kcal or per MD Nutrition Intervention Nutrition Support: Recommend initiating Glucerna 1.2 @ 15mL/hr and increasing by 10mL q 8hrs to goal rate of 35mL/hr x 24hrs. Flush with 60mL q 4hr. Kcal 1,008 Protein (gm) 50 Fluid (mL) 675 % RDI: (98%/109%) Goal #1 Pt to tolerate >75% of estimated energy/protein needs through enteral nutrition Follow-Up By: 07/07/22 Additional Comments Monitor TF rate, tolerance, and GI symptoms.
[2022-07-06] MEDS: DOCUSATE SODIUM 100 MG/10 ML ORAL LIQD FEEDTUBE SCH ×2 (10:59→22:28)
[2022-07-06] MEDS: amLODIPine 10 MG TAB FEEDTUBE SCH (10:59)
[2022-07-06] MEDS: SENNOSIDES 8.6 MG TAB FEEDTUBE SCH (10:59)
[2022-07-06] MEDS: levETIRAcetam 500 MG/5 ML ORAL LIQD FEEDTUBE SCH ×2 (10:59→22:28)
[2022-07-06] MEDS: HEPARIN 5,000 UNIT/1 ML VIAL SUB-Q SCH ×2 (10:59→22:28)
[2022-07-06] MEDS: FERROUS SULFATE 300 MG (60MG Elemental Iron) / 5 mL ORAL LIQD PO SCH (11:12)
[2022-07-06] MEDS: MIRTAZAPINE 15 MG TAB FEEDTUBE SCH (22:28)
--- NOTE | 2022-07-07 07:27 | Progress Note ---
Assessment and Plan Assessment and plan: History Interval history: This is is an 87-year-old female who is resident of a skilled nursing with vascular dementia, cerebral atherosclerosis, DM, CHF, HTN, seizure disorder, CVA, debility, malnutrition, DVT (not currently on therapeutic anticoagulation) who presented to the emergency department on 06/30 via EMS after being notified when she was found to have increased confusion and weakness at the skilled nursing. Upon arrival the patient was found to be in distress and transferred to [facility]. In the emergency department patient had a pulse ox of 86% on room air, sepsis secondary to UTI, toxic metabolic encephalopathy, metabolic acidosis, hyponatremia as well as hypertensive urgency at 203/103. Teleneurology did assess the patient and recommended EEG. Patient was intubated in the emergency department. Patient was admitted to the hospitalist service to the ICU with consults to [facility]. Hospital course to date: 07/01: Neurology consulted, patient placed on CPAP and extubated), LR bolus for hypotension, EEG ordered and neurology consulted. Lisinopril discontinued. 07/02: DHT placed today, ST evaluation completed today which patient failed. Patient will be transferred to the floor. PT/OT consulted. 07/03: Therapy recs noted. Given ST evaluation, patient may require PEG. I will reach out to discuss details of assessment today and if needed consult GI. Dispo is [facility]. 07/04: Patient will need PEG. GI consulted for PEG placement, D/w [employer] this AM. Discussed with family at bedside who are agreeable to procedure. Dispo: [facility] [place] 07/05: Patient clinically stable, PEG placed, she is tolerating diet. Cleared for discharge back to the SNF. 07/06: Patient is awaiting acceptance of the [facility]. 07/07: Patient is awaiting acceptance of the [facility]. 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 -CTA neck showed no hemodynamically significant stenosis appreciated in the CTA of the neck, small pulmonary nodules and pleural thickening identified -MRI brain shows no acute acute abnormality, volume loss and chronic white matter changes -EEG pending -PT/OT consulted Cardiac: Hypertensive Emergency (resolved), h/o HTN -Admitted with BP 203/103 -Blood pressure monitoring per protocol -Per neurology: Permissive hypertension until MRI -Amlodipine -2016 echocardiogram shows EF of 60 to 65% Respiratory: Acute hypoxic respiratory failure, h/o DVT -CCM consulted, appreciate recommendations -Intubated on 06/30 with 7.5 OETT at 22 cm at the lips and extubated on 07/01 -Currently on nasal cannula -SPO2 monitor per protocol -Pulmonary hygiene -Supplemental oxygen as needed GI: h/o malnutrition -According to family patient did have a diet at skilled nursing -Failed bedside swallow evaluation due to refusing to participate -ST evaluation completed which he failed -DHT -Nutrition consult for tube feeding -PPI -BR: senokot : Acute kidney injury secondary to vasomotor nephropathy (resolved), h yperkalemia (resolved) -Monitor intake and output -Renally dose medications -Avoid nephrotoxic medications -FENa 0.73% -Trend BMP ID: SIRS POA, ruled out sepsis, Lactic Acidosis (resolved) -Admitted with tachycardia, ruthie, lactic acidosis, leukocytosis -f/u blood culture -Monitor WBC and temperature curve Endo: h/o DM -Avoid hypoglycemia -SSI -Accu-Cheks q. 6hr Heme: Leukocytosis (improving) -Trend CBC -Transfuse hemoglobin less than 7 -SCDs to BLE while in bed #Advance care planning Disease education conducted, care plan discussed, diagnoses discussed, prognosis discussed, patient is full code. Pt family acknowledges understanding and agree with care plan, +30 minutes. History Interval history: Patient seen and examined no acute issues overnight. Patient is tolerating diet. Awaiting acceptance by the facility. Hospitalist Physical - Physical exam Narrative exam: General appearance: Present: no acute distress, cachectic - EENT Eyes: Present: PERRL, EOM intact ENT: dentition normal - Neck Neck: Present: normal ROM - Respiratory Respiratory effort: normal Respiratory: bilateral: CTA - Cardiovascular Rhythm: regular Heart Sounds: Present: S1 & S2. Absent: systolic murmur, diastolic murmur - Extremities Extremities: no ischemia, pulses intact, pulses symmetrical, No edema, normal temperature, normal color Peripheral Pulses: within normal limits - Abdominal General gastrointestinal: soft, non-tender, non-distended, normal bowel sounds - Integumentary Integumentary: Present: warm, dry - Psychiatric Psychiatric: cooperative - Neurologic Neurologic: no focal deficits - Allied Health Allied health notes reviewed: nursing, PT, ST, OT, RT, social work - Constitutional Vitals: Temp Pulse Resp BP Pulse Ox 97.5 F L 102 H 16 135/78 97 07/06/22 20:46 07/06/22 20:46 07/07/22 00:00 07/06/22 20:46 07/07/22 00:00 General appearance: Present: no acute distress, cachectic HEART Score - HEART Score Troponin: Troponin T < 0.010 ng/mL (0.00-0.029) 06/30/22 10:01 Results - Labs CBC & Chem 7: 07/02/22 04:58 07/02/22 04:58 Labs: Laboratory Last Values WBC 13.9 K/mm3 (4.5-11.0) H 07/02/22 04:58 RBC 3.99 M/mm3 (3.65-5.03) 07/02/22 04:58 Hgb 11.2 gm/dl (10.1-14.3) 07/02/22 04:58 Hct 35.6 % (30.3-42.9) 07/02/22 04:58 MCV 89 fl (79-97) 07/02/22 04:58 MCH 28 pg (28-32) 07/02/22 04:58 MCHC 32 % (30-34) 07/02/22 04:58 RDW 13.1 % (13.2-15.2) L 07/02/22 04:58 Plt Count 271 K/mm3 (140-440) 07/02/22 04:58 Lymph % (Auto) 12.9 % (13.4-35.0) L 07/01/22 04:14 Lanier % (Auto) 8.2 % (0.0-7.3) H 07/01/22 04:14 Eos % (Auto) 0.0 % (0.0-4.3) 07/01/22 04:14 Baso % (Auto) 0.2 % (0.0-1.8) 07/01/22 04:14 Lymph # (Auto) 1.7 K/mm3 (1.2-5.4) 07/01/22 04:14 Lanier # (Auto) 1.1 K/mm3 (0.0-0.8) H 07/01/22 04:14 Eos # (Auto) 0.0 K/mm3 (0.0-0.4) 07/01/22 04:14 Baso # (Auto) 0.0 K/mm3 (0.0-0.1) 07/01/22 04:14 Seg Neutrophils % 78.7 % (40.0-70.0) H 07/01/22 04:14 Seg Neutrophils # 10.3 K/mm3 (1.8-7.7) H 07/01/22 04:14 ABG pH 7.394 pH Units (7.350-7.450) 07/01/22 05:00 ABG pCO2 34.0 mm Hg 07/01/22 05:00 ABG pO2 160.8 mm Hg (80.0-90.0) H 07/01/22 05:00 ABG HCO3 20.3 mmol/L (20.0-26.0) 07/01/22 05:00 ABG O2 Saturation 99.0 % (95.0-99.0) 07/01/22 05:00 ABG O2 Content 16.4 (0.0-44) 07/01/22 05:00 ABG Base Excess -3.8 mmol/L (-2.0-3.0) L 07/01/22 05:00 ABG Hemoglobin 11.7 gm/dl (12.0-16.0) L 07/01/22 05:00 ABG Carboxyhemoglobin 1.2 % (0.0-5.0) 07/01/22 05:00 ABG Methemoglobin 0.5 % (0.0-1.5) 07/01/22 05:00 Oxyhemoglobin 97.4 % (95.0-99.0) 07/01/22 05:00 FiO2 35 % 07/01/22 05:00 Sodium 142 mmol/L (137-145) 07/02/22 04:58 Potassium 4.0 mmol/L (3.6-5.0) D 07/02/22 04:58 Chloride 106.1 mmol/L (98-107) 07/02/22 04:58 Carbon Dioxide 25 mmol/L (22-30) 07/02/22 04:58 Anion Gap 15 mmol/L 07/02/22 04:58 BUN 20 mg/dL (7-17) H 07/02/22 04:58 Creatinine 0.7 mg/dL (0.6-1.2) 07/02/22 04:58 Estimated GFR > 60 ml/min 07/02/22 04:58 BUN/Creatinine Ratio 29 % 07/02/22 04:58 Glucose 122 mg/dL (65-100) H 07/02/22 04:58 POC Glucose 142 mg/dL (70-105) H 07/06/22 23:48 Lactic Acid 1.70 mmol/L (0.7-2.0) 07/02/22 04:58 Calcium 8.6 mg/dL (8.4-10.2) 07/02/22 04:58 Total Bilirubin 0.40 mg/dL (0.1-1.2) 06/30/22 10:01 AST 25 units/L (5-40) 06/30/22 10:01 ALT 11 units/L (7-56) 06/30/22 10:01 Alkaline Phosphatase 85 units/L (35-129) 06/30/22 10:01 Troponin T < 0.010 ng/mL (0.00-0.029) 06/30/22 10:01 Total Protein 7.0 g/dL (6.3-8.2) 06/30/22 10:01 Albumin 4.2 g/dL (3.9-5) 06/30/22 10:01 Albumin/Globulin Ratio 1.5 % 06/30/22 10:01 Prealbumin 0.132 g/L (0.200-0.400) L 07/01/22 15:09 Vitamin B1 43 nmol/L (8-30) H 07/01/22 15:09 Vitamin B12 882.1 pg/mL (211-911) 07/01/22 15:09 Folate 9.64 ng/mL (7.3-26.0) 07/01/22 15:09 TSH 1.000 mlU/mL (0.270-4.200) 07/01/22 15:09 Urine Color Straw (Yellow) 07/01/22 08:26 Urine Turbidity Clear (Clear) 07/01/22 08:26 Specific Arley (Man) 1.015 (1.003-1.030) 07/01/22 08:26 Ur Protein (Man) 1+ mg/dL (Negative) 07/01/22 08:26 Ur Ketones (Man) 3+ (Negative) 07/01/22 08:26 Ur Nitrite (Man) Negative (Negative) 07/01/22 08:26 Urine Bilirubin (Man) Negative (Negative) 07/01/22 08:26 Leukocyte Esterase (Man) Trace (Negative) 07/01/22 08:26 Urine WBC (Auto) 42.0 /HPF (0.0-6.0) H 07/01/22 08:26 Urine RBC (Auto) 89.0 /HPF (0.0-6.0) 07/01/22 08:26 U Epithel Cells (Auto) 6.0 /HPF (0-13.0) 07/01/22 08:26 Urine Bacteria (Auto) 1+ /HPF (Negative) 07/01/22 08:26 Urine RBC (Manual) 3+ (Negative) 07/01/22 08:26 Amorphous Crystals Few 07/01/22 08:26 Hyaline Casts 1 /LPF 07/01/22 08:26 Urine Mucus Few /HPF 07/01/22 08:26 Urine Creatinine 49.9 mg/dL (0.1-20.0) H 07/01/22 08:26 Urine Sodium 139 mmol/L 07/01/22 08:26 Copper 120 mcg/dL (70-175) 07/01/22 15:09 Syphilis IgG/IgM Ab Nonreactive (NonReactive) 07/01/22 15:09 Blood Type B POSITIVE 06/30/22 23:26 Antibody Screen Negative 06/30/22 23:26 Microbiology: Microbiology 06/30/22 23:26 Peripheral/Venous Blood Culture - Final NO GROWTH AFTER 5 DAYS 06/30/22 23:26 Peripheral/Venous Blood Culture - Final NO GROWTH AFTER 5 DAYS Munoz/IV: Voiding Method External Female Catheter Active Medications - Current Medications Current Medications: Generic Name Dose Route Start Last Admin Trade Name Freq PRN Reason Stop Dose Admin Acetaminophen 650 mg 06/30/22 12:58 Acetaminophen 325 Mg Tab PO Q6H PRN Pain MILD(1-3)/Fever >100.5/MCGRATH Albuterol 2.5 mg 06/30/22 12:58 Albuterol 2.5 Mg/3 Ml Nebu IH Q3HRT PRN Shortness Of Breath Amlodipine Besylate 10 mg 07/01/22 10:00 07/06/22 10:59 Amlodipine 10 Mg Tab FEEDTUBE 10 mg QDAY JAVIER Administration Docusate Sodium 100 mg 07/01/22 10:00 07/06/22 22:28 Docusate Sodium 100 Mg/10 Ml Oral Liqd FEEDTUBE 100 mg BID JAVIER Administration Ferrous Sulfate 300 mg 07/01/22 10:00 07/06/22 11:12 Ferrous Sulfate 300 Mg (60mg Elemental Iron) / 5 Ml Oral Liqd PO 300 mg QDAY JAVIER Administration Heparin Sodium (Porcine) 5,000 unit 06/30/22 22:00 07/06/22 22:28 Heparin 5,000 Unit/1 Ml Vial SUB-Q 5,000 unit Q12HR JAVIER Administration Hydralazine HCl 10 mg 06/30/22 13:03 07/02/22 12:40 Hydralazine 20 Mg/1 Ml Inj IV 10 mg Q8HR PRN Administration Hypertension Levetiracetam 500 mg 07/01/22 10:00 07/06/22 22:28 Levetiracetam 500 Mg/5 Ml Oral Liqd FEEDTUBE 500 mg BID JAVIER Administration Mirtazapine 15 mg 07/01/22 22:00 07/06/22 22:28 Mirtazapine 15 Mg Tab FEEDTUBE 15 mg QHS JAVIER Administration Oxycodone/Acetaminophen 1 tab 06/30/22 12:58 Oxycodone /Acetaminophen 5-325mg Tab PO Q6H PRN Pain, Moderate (4-6) Senna 8.6 mg 07/01/22 10:00 07/06/22 10:59 Sennosides 8.6 Mg Tab FEEDTUBE 8.6 mg QDAY JAVIER Administration Sodium Chloride 10 ml 06/30/22 22:00 07/06/22 22:29 Sodium Chloride 0.9% 10 Ml Flush Syringe IV 10 ml BID JAVIER Administration Sodium Chloride 10 ml 06/30/22 12:58 Sodium Chloride 0.9% 10 Ml Flush Syringe IV PRN PRN LINE FLUSH Nutrition/Malnutrition Assess - Dietary Evaluation Nutrition/Malnutrition Findings: Nutrition Notes Start: 07/01/22 10:44 Freq: Status: Active Protocol: Document 07/03/22 17:09 CM (Rec: 07/03/22 17:25 CM [id number]) Co-Sign 07/03/22 17:09 WW Nutrition Notes Need for Assessment generated from: MD Order Initial or Follow up Assessment Current Diagnosis Diabetes,Hypertension, Respiratory Failure, Malnutrition,Stroke Other Pertinent Diagnosis AMS, Vascular Dementia, Cerebral Atherosclerosis, hx of esophageal surgery Current Diet NPO Labs/Tests 07/03: BUN` 20 Pertinent Medications 07/03: Ferrous sulfate Height 5 ft Weight 38 kg [place] Body Weight (kg) 45.45 BMI 16.3 Weight change and time frame No unintentional wt loss reported per malnutrition screening tool. Weight Status Underweight Subjective/Other Information RD consult for write/manage tube feed. Pt NPO and extubated per EMR. Failed ST evaluation 07/02 per progress note. DHT terminates in distal stomach but is not transpyloric per Abdomen XR . May require PEG placement per progress notes. Abdomen flat, soft, w/ BS+ per Physical Assessment. Nutrition-focused physical examination performed indicating moderate muscle wasting in chronic setting. Burn Absent Trauma Absent GI Symptoms None Difficulty In Swallowing Skin Integrity/Comment Rolly 11 - No symptoms Current % PO Other Minimum of two criteria No Muscle Mass Moderate Depletion (severe) Fluid Accumulation N/A Reduced Blue Split Trimmer Strength N/A (non-severe) Protein-Calorie Malnutrition N\A #1 Nutrition Diagnosis Inadequate oral intake Etiology Decreased motor function As Evidenced by Signs and Symptoms Pt NPO pending enteral nutrition Is patient on ventilator? No Is Patient Ambulatory and/or Out of Bed No REE-([place]-confined to bed) 897.600 Kcal/Kg value to use for calculation 27 Approximate Energy Requirements Using 1026 kcal/Kg Calculation Used for Recommendations Kcal/kg Additional Notes Protein: 1.0-1.2g/kg ABW; 38- 46g PRO q day Fluids: 30mL/kcal or per MD Nutrition Intervention Nutrition Support: Recommend initiating Glucerna 1.2 @ 15mL/hr and increasing by 10mL q 8hrs to goal rate of 35mL/hr x 24hrs. Flush with 60mL q 4hr. Kcal 1,008 Protein (gm) 50 Fluid (mL) 675 % RDI: (98%/109%) Goal #1 Pt to tolerate >75% of estimated energy/protein needs through enteral nutrition Follow-Up By: 07/07/22 Additional Comments Monitor TF rate, tolerance, and GI symptoms.
[2022-07-07] MEDS: levETIRAcetam 500 MG/5 ML ORAL LIQD FEEDTUBE SCH (09:04)
[2022-07-07] MEDS: HEPARIN 5,000 UNIT/1 ML VIAL SUB-Q SCH (09:04)
[2022-07-07] MEDS: FERROUS SULFATE 300 MG (60MG Elemental Iron) / 5 mL ORAL LIQD PO SCH (09:04)
[2022-07-07] MEDS: amLODIPine 10 MG TAB FEEDTUBE SCH (09:04)
[2022-07-07] MEDS: DOCUSATE SODIUM 100 MG/10 ML ORAL LIQD FEEDTUBE SCH (09:04)
[2022-07-07] MEDS: SENNOSIDES 8.6 MG TAB FEEDTUBE SCH (09:04)
[2022-07-07 11:04] LABS: C-Reactive Protein 11.6 mg/dL (0.00-1.30)
[2022-07-07 11:35] LABS: Hematocrit 32.7 % (30.3-42.9); Hemoglobin 10.5 gm/dl (10.1-14.3); Mean Corpuscular HGB Conc 32 % (30-34); Mean Corpuscular Volume 88 fl (79-97); Platelet Count 348 K/mm3 (140-440); Red Cell Distribution Width 13.1 % (13.2-15.2)
--- NOTE | 2022-07-07 11:47 | Discharge Summary ---
Providers - Providers Date of Admission: 06/30/22 12:58 Date of discharge: 07/07/22 Attending physician: TERESO GALAN MD 07/01/22 08:24 Consult to Physician [CONS] Routine Comment: call office spoke to michelle Consulting Provider: BROOKLYN HUSSEIN Physician Instructions: Reason For Exam: ams 07/01/22 15:22 Occupational Therapy Evaluate and Treat [CONS] Routine Comment: Reason For Exam: weakness Physical Therapy Evaluation and Treat [CONS] Routine Comment: Reason For Exam: weakness 07/02/22 08:10 Speech Therapy Evaluation and Treat [CONS] Routine Reason For Exam: swallow eval 07/02/22 18:03 Consult to Dietitian/Nutrition [CONS] Routine Physician Instructions: Reason For Exam: Reason for Consult: Write/Manage Tube Feeding 07/04/22 07:38 Consult to Physician [CONS] Routine Comment: Consulting Provider: HAKAN GOMEZ Physician Instructions: Reason For Exam: PEG tube 07/04/22 15:54 Consult to Dietitian/Nutrition [CONS] Routine Physician Instructions: Reason For Exam: Reason for Consult: post-peg placement Primary care physician: JAKOB MEREDITH Hospitalization Reason for admission: confusion Condition: Stable Hospital course: Interval history: This is is an 87-year-old female who is resident of a care home with vascular dementia, cerebral atherosclerosis, DM, CHF, HTN, seizure disorder, CVA, debility, malnutrition, DVT (not currently on therapeutic anticoagulation) who presented to the emergency department on 06/30 via EMS after being notified when she was found to have increased confusion and weakness at the care home. Upon arrival the patient was found to be in distress and transferred to [facility]. In the emergency department patient had a pulse ox of 86% on room air, sepsis secondary to UTI, toxic metabolic encephalopathy, metabolic acidosis, hyponatremia as well as hypertensive urgency at 203/103. Teleneurology did assess the patient and recommended EEG. Patient was intubated in the emergency department. Patient was admitted to the hospitalist service to the ICU with consults to [facility]. Hospital course to date: 07/01: Neurology consulted, patient placed on CPAP and extubated), LR bolus for hypotension, EEG ordered and neurology consulted. Lisinopril discontinued. 07/02: DHT placed today, ST evaluation completed today which patient failed. Patient will be transferred to the floor. PT/OT consulted. 07/03: Therapy recs noted. Given ST evaluation, patient may require PEG. I will reach out to discuss details of assessment today and if needed consult GI. Dispo is [facility]. 07/04: Patient will need PEG. GI consulted for PEG placement, D/w STAIN DIPPER this AM. Discussed with family at bedside who are agreeable to procedure. Dispo: [facility] [place] 07/05: Patient clinically stable, PEG placed, she is tolerating diet. Cleared for discharge back to the SNF. 07/06: Patient is awaiting acceptance of the [facility]. 07/07: [facility] Anticipate dc today. 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 -CTA neck showed no hemodynamically significant stenosis appreciated in the CTA of the neck, small pulmonary nodules and pleural thickening identified -MRI brain shows no acute acute abnormality, volume loss and chronic white matter changes -EEG pending -PT/OT consulted Cardiac: Hypertensive Emergency (resolved), h/o HTN -Admitted with BP 203/103 -Blood pressure monitoring per protocol -Per neurology: Permissive hypertension until MRI -Amlodipine -2016 echocardiogram shows EF of 60 to 65% Respiratory: Acute hypoxic respiratory failure, h/o DVT -CCM consulted, appreciate recommendations -Intubated on 06/30 with 7.5 OETT at 22 cm at the lips and extubated on 07/01 -Currently on nasal cannula -SPO2 monitor per protocol -Pulmonary hygiene -Supplemental oxygen as needed GI: h/o malnutrition -According to family patient did have a diet at care home -Failed bedside swallow evaluation due to refusing to participate -ST evaluation completed which he failed -DHT -Nutrition consult for tube feeding -PPI -BR: senokot : Acute kidney injury secondary to vasomotor nephropathy (resolved), hyperkalemia (resolved) -Monitor intake and output -Renally dose medications -Avoid nephrotoxic medications -FENa 0.73% -Trend BMP ID: SIRS POA, ruled out sepsis, Lactic Acidosis (resolved) -Admitted with tachycardia, ruthie, lactic acidosis, leukocytosis -f/u blood culture -Monitor WBC and temperature curve Endo: h/o DM -Avoid hypoglycemia -SSI -Accu-Cheks q. 6hr Heme: Leukocytosis (improving) -Trend CBC -Transfuse hemoglobin less than 7 -SCDs to BLE while in bed #Advance care planning Disease education conducted, care plan discussed, diagnoses discussed, prognosis discussed, patient is full code. Pt family acknowledges understanding and agree with care plan, +30 minutes. Disposition: 03 [facility] Final Discharge Diagnosis (Prints w/discharge instructions): acute metabolic encephalopathy, Acute hypoxic respiratory failure, ruthie due to vasomotor nephropathy Time spent for discharge: 35 Core Measure Documentation - Palliative Care Palliative Care/ Comfort Measures: Not Applicable - Core Measures Any of the following diagnoses?: none Exam - Physical Exam Narrative exam: General appearance: Present: no acute distress, cachectic - EENT Eyes: Present: PERRL, EOM intact ENT: dentition normal - Neck Neck: Present: normal ROM - Respiratory Respiratory effort: normal Respiratory: bilateral: CTA - Cardiovascular Rhythm: regular Heart Sounds: Present: S1 & S2. Absent: systolic murmur, diastolic murmur - Extremities Extremities: no ischemia, pulses intact, pulses symmetrical, No edema, normal temperature, normal color Peripheral Pulses: within normal limits - Abdominal General gastrointestinal: soft, non-tender, non-distended, normal bowel sounds - Integumentary Integumentary: Present: warm, dry - Psychiatric Psychiatric: cooperative - Neurologic Neurologic: no focal deficits - Allied Health Allied health notes reviewed: nursing, PT, ST, OT, RT, social work - Constitutional Vitals: Temp Pulse Resp BP Pulse Ox 97.4 F L 109 H 20 127/69 97 07/07/22 08:32 07/07/22 09:04 07/07/22 08:32 07/07/22 08:32 07/07/22 08:32 Plan Follow up with: SHADY TROY MD [Staff Physician] - 7 Days JAKOB MEREDITH MD [Primary Care Provider] - 3-5 Days Prescriptions: Mirtazapine [Remeron 15mg TAB] 15 mg FEEDTUBE QHS 30 Days #30 tab amLODIPine 10 mg FEEDTUBE QDAY 30 Days #30 tablet levETIRAcetam [Keppra TAB] 500 mg FEEDTUBE BID 30 Days #60 tablet Sennosides Tab [Senokot] 2 tab FEEDTUBE QDAY 30 Days #60 tab
[2022-07-07 11:55] LABS: Alanine Aminotransferase 7 units/L (7-56); Albumin 2.9 g/dL (3.9-5); Blood Urea Nitrogen 17 mg/dL (7-17); Calcium 8.7 mg/dL (8.4-10.2); Hemolysis Index 0
[2022-07-07 11:56] LABS: BUN/Creatinine Ratio 34
[2022-07-07 15:28] VITALS: BP 127/86
[2022-07-09 14:31] LABS: Vitamin D, 25-OH, D2 SEE SCANNED RESULT
== END 2022-07-07 18:30 | DRG 208 ==
LOC: ED 09:03 → CC1 12:58 → 3A 07-02 17:29
PROVIDERS: ADMIT Internal Medicine; ATTEND Internal Medicine
PROC: 5A1945Z Respiratory Ventilation, 24-96 Consecutive Hours (ICD-10-PCS; principal; 2022-06-30)
PROC: 0BH17EZ Insertion of Endotracheal Airway into Trachea, Via Natural or Artificial Opening (ICD-10-PCS; 2022-06-30)
PROC: 4A033R1 Measurement of Arterial Saturation, Peripheral, Percutaneous Approach (ICD-10-PCS; 2022-06-30)
PROC: 06HY33Z Insertion of Infusion Device into Lower Vein, Percutaneous Approach (ICD-10-PCS; 2022-06-30)
PROC: B54BZZA Ultrasonography of Right Lower Extremity Veins, Guidance (ICD-10-PCS; 2022-06-30)
PROC: 0DH63UZ Insertion of Feeding Device into Stomach, Percutaneous Approach (ICD-10-PCS; 2022-07-04)
DX: J96.01 Acute respiratory failure with hypoxia (principal); E43 Unspecified severe protein-calorie malnutrition; N17.0 Acute kidney failure with tubular necrosis; G93.41 Metabolic encephalopathy; N39.0 Urinary tract infection, site not specified; I50.32 Chronic diastolic (congestive) heart failure; E87.1 Hypo-osmolality and hyponatremia; R65.10 Systemic inflammatory response syndrome (SIRS) of non-infectious origin without acute organ dysfunction; I16.1 Hypertensive emergency; Z68.1 Body mass index [BMI] 19.9 or less, adult; Z20.822 Contact with and (suspected) exposure to COVID-19; F01.50 Vascular dementia, unspecified severity, without behavioral disturbance, psychotic disturbance, mood disturbance, and anxiety; I11.0 Hypertensive heart disease with heart failure; E87.5 Hyperkalemia; E11.9 Type 2 diabetes mellitus without complications; F03.90 Unspecified dementia, unspecified severity, without behavioral disturbance, psychotic disturbance, mood disturbance, and anxiety; J43.9 Emphysema, unspecified; I67.2 Cerebral atherosclerosis; G40.909 Epilepsy, unspecified, not intractable, without status epilepticus; R53.81 Other malaise; R13.10 Dysphagia, unspecified; K44.9 Diaphragmatic hernia without obstruction or gangrene; Z83.3 Family history of diabetes mellitus; Z82.49 Family history of ischemic heart disease and other diseases of the circulatory system; Z86.73 Personal history of transient ischemic attack (TIA), and cerebral infarction without residual deficits; Z91.013 Allergy to seafood
CPT/HCPCS: 31500; 36415; 36600; 70450; 70496; 70498; 70551; 71045; 74018; 80048; 80053; 81001; 82140; 82306; 82525; 82570; 82607; 82728; 82747; 82803; 82947; 82962; 83615; 84134; 84300; 84425; 84443; 84484; 85025; 85027; 85379; 86140; 86592; 86850; 86900; 86901; 87040; 87070; 87076; 87086; 87186; 87205; 93005; 94002; 94003; 94760; 95819; 99285; G0378; J3490; J0360; J0690; J0692; J1644; J1940; J2250; J2704; J7030; J7120; Q9967; U0003